=== PATIENT | female | born 1985 | race Caucasian/White ===

== ENCOUNTER 2022-04-05 11:16 | Emergency (ER) | payer OTHER ==
[2022-04-05 12:13] LABS: Appearance CLEAR (CLEAR); Bilirubin NEGATIVE (NEGATIVE); Dipstick done @ ? MAIN LAB; Epithelial Cells RARE /HPF (FEW); Glucose >=1000 mg/dL (NEGATIVE); Ketones NEGATIVE (NEGATIVE); Nitrite NEGATIVE (NEGATIVE); Protein,Urine Dip NEGATIVE (Negative); RBC NEGATIVE Ery/ul (0-5); Specific Gravity 1.015 (1.005-1.025); Urobilinogen 0.2 mg/dL (0-1)
[2022-04-05 12:14] LABS: Urine Cultured Indicated? NO
--- NOTE | 2022-04-05 13:34 | XRAY ---
Indication: Pain, constipation, and obstruction. Comparison: None KUB demonstrates moderate fecal debris throughout with little bowel gas/fecal debris in the rectum. Urinary bladder moderately distended. Remaining solid organs and osseous structures unremarkable. CT may yield further information if there remains further clinical concern.
--- NOTE | 2022-04-05 15:17 | ERPHSYRPT ---
- History of Present Illness Time Seen by Provider: 04/05/22 11:19 Historian: patient Exam Limitations: no limitations Patient Subjective Stated Complaint: pt states "I had C. diff 2 weeks ago and thought I would have diarrhea from the antibotics. I have not had a bowel mo vement in 14 days." Triage Nursing Assessment: pt ambulated into the er; pt is axo x4; c/o constipation; pt states 5/10 to abd; abd is round, soft, tender; hypoactive bowel sounds in all quads; pt states "heartburn when I eat."; hypertensive Physician History: 36-year-old female presented in the ER with chief complaint of constipation. Patient reports she had C. difficile 2 weeks ago and, was started on Flagyl, diarrhea has improved and does not have any bowel movement for almost 2 weeks. She feels bloated, does admit to passing gas and occasional cramping and getting nauseated with eating. Reports having similar symptoms in the past needing an TX. Timing/Duration: week(s) (2), gradual onset Quality: cramping, dullness Abdominal Pain Onset Location: generalized abdomen Pain Radiation: no radiation Severity of Pain-Max: moderate Severity of Pain-Current: moderate Modifying Factors: Worsens With: eating Previous symptoms: no prior history Allergies/Adverse Reactions: erythromycin base Allergy (Verified 04/05/22 12:44) Penicillins Allergy (Verified 04/05/22 11:27) Home Medications: Clopidogrel Bisulfate [PLAVIX Tablet] 75 mg PO DAILY 04/05/22 [History] Metformin HCl 500 mg [Glucophage 500 MG] 1,000 mg PO BIDWM 04/05/22 [History] Sertraline HCl [Zoloft] 100 mg PO 04/05/22 [History] Hx Tetanus, Diphtheria Vaccination/Date Given: Yes Hx Influenza Vaccination/Date Given: No Hx Pneumococcal Vaccination/Date Given: No Travel Risk - International Travel Have you traveled outside of the country in past 3 weeks: No - Coronavirus Screening Are you exhibiting any of the following symptoms?: No Close contact with a COVID-19 positive Pt in past 14-21 Days: No - Vaccine Status Have you recieved a Covid-19 vaccination: No - Review of Systems Constitutional: No Symptoms Eyes: No Symptoms Ears, Nose, & Throat: No Symptoms Respiratory: No Symptoms Cardiac: No Symptoms Abdominal/Gastrointestinal: Abdominal Pain, Constipation Genitourinary Symptoms: No Symptoms Musculoskeletal: No Symptoms Skin: No Symptoms Neurological: No Symptoms Psychological: No Symptoms Endocrine: No Symptoms Hematologic/Lymphatic: No Symptoms - Past Medical History Pertinent Past Medical History: Yes Cardiac History: Other Endocrine Medical History: Diabetes Type II GI Medical History: Irritable Bowel Psycho-Social History: Anxiety, Depression Other Medical History: PAD - Past Surgical History Past Surgical History: Yes Gastrointestinal: Cholecystectomy - Social History Smoking Status: Current every day smoker How long have you smoked: 22 years Exposure to second hand smoke: Yes Drug Use: marijuana Patient Lives Alone: No - Female History Hx Now: No - Nursing Vital Signs Nursing Vital Signs: Initial Vital Signs Pulse Rate 95 H 04/05/22 11:30 Respiratory Rate 18 04/05/22 11:30 Blood Pressure 174/112 04/05/22 11:30 O2 Sat by Pulse Oximetry 100 04/05/22 11:30 Pain Scale Pain Intensity 5 - Physical Exam General Appearance: no apparent distress, alert Eye Exam: PERRL/EOMI Neck Exam: normal inspection, full range of motion Respiratory Exam: normal breath sounds Cardiovascular Exam: regular rate/rhythm, normal heart sounds Gastrointestinal/Abdomen Exam: soft, normal bowel sounds, tenderness (Minimal generalized) Back Exam: normal inspection, normal range of motion Extremity Exam: normal inspection, normal range of motion Neurologic Exam: alert, oriented x 3, cooperative Skin Exam: normal color SpO2 Interpretation: normal SpO2: 98 O2 Delivery: Room Air Ordered Tests: Active Orders 24 hr Category Date Time Status KUB Stat Exams 04/05/22 13:21 Completed HCG, Quantitative (Inhouse) Stat Lab 04/05/22 12:19 Completed HCG,QUALITATIVE URINE Stat Lab 04/05/22 13:08 Completed UA W/RFX CULTURE Stat Lab 04/05/22 12:02 Completed Medication Summary Discontinued Medications Generic Name Dose Route Start Last Admin Trade Name Freq PRN Reason Stop Dose Admin Magnesium Citrate 296 ml 04/05/22 15:20 04/05/22 15:23 Magnesium Citrate 296 Ml Solution PO 04/05/22 15:21 296 ml STAT ONE Administration Magnesium Citrate Confirm 04/05/22 15:22 Magnesium Citrate 296 Ml Solution Administered 04/05/22 15:23 Dose 296 ml .ROUTE .[facility] Lab/Rad Data: Laboratory Results 04/05/22 04/05/22 04/05/22 Range/Units 13:08 12:19 12:02 Beta HCG, Quant < 2.39 mIU/ml Urinalys Dipstick Clnc MAIN LAB Urine Color YELLOW (YELLOW) Urine Appearance CLEAR (CLEAR) Urine pH 7.0 (5-6) Ur Specific Crosby 1.015 (1.005-1.025) POC Urine Protein Conf NEGATIVE (Negative) Urine Ketones NEGATIVE (NEGATIVE) Urine Nitrite NEGATIVE (NEGATIVE) Urine Bilirubin NEGATIVE (NEGATIVE) Urine Urobilinogen 0.2 (0-1) mg/dL Urine Leukocytes NEGATIVE (NEGATIVE) Urine WBC (Auto) NONE (0-5) /HPF Urine RBC (Auto) NONE (0-2) /HPF U Epithel Cells (Auto) RARE (FEW) /HPF Urine Bacteria (Auto) NONE (NEGATIVE) /HPF Urine RBC NEGATIVE (0-5) Adrien/ul Ur Culture Indicated? NO Urine Glucose >=1000 (NEGATIVE) mg/dL Urine HCG, Qual NEGATIVE (Negative) - Progress Progress: improved Progress Note: 04/05/22 15:16 Obtain KUB with no obstruction but does have fair stool load. Given enemas with small bowel movement. Does not have any peritoneal signs on repeated evaluations as well. Recommended mag citrate and MiraLAX, outpatient follow-up. Stable for discharge. Counseled pt/family regarding: diagnosis, need for follow-up, rad results - Departure Departure Disposition: Home Clinical Impression: Constipation Condition: Stable Critical Care Time: No Referrals: IDALMIS GRIFFIN [Primary Care Provider] - Follow up/PCP as directed (1-2 days for reevaluation) Instructions: Constipation, Adult (DC) Additional Instructions: Drink plenty of fluids. Take MiraLAX regularly. Take magnesium citrate today. Follow-up with primary care for reevaluation. Return to ER for worsening constipation, abdominal pain, nausea vomiting etc. Prescriptions: Magnesium Citrate [Citroma] 296 ml PO DAILY PRN PRN 1 Days #296 ml PRN Reason: Constipation Polyethylene Glycol 3350 17 gm [Miralax Powder 17GM PACKET] 17 gm PO DAILY #30 packet
[2022-04-05] MEDS ORDERED: CITROMA 296 ML PO ONE (15:20)
[2022-04-05] MEDS ORDERED: CITROMA 296 ML ONE (15:22)
[2022-04-05 15:33] VITALS: BP 128/90; PULSE 82
[2022-04-05 20:56] VITALS: O2SAT 98
== END 2022-04-05 15:33 | disposition home or self-care (01) ==
LOC: ED 11:16
DX: K59.00 Constipation, unspecified (principal); E11.9 Type 2 diabetes mellitus without complications; Z72.0 Tobacco use; Z79.02 Long term (current) use of antithrombotics/antiplatelets; Z79.84 Long term (current) use of oral hypoglycemic drugs; Z79.899 Other long term (current) drug therapy; Z28.310 Unvaccinated for COVID-19
CPT/HCPCS: 36000; 36415; 74018; 81015; 81025; 84702; 99283; A9270-GY

== ENCOUNTER 2022-04-24 23:31 | Observation (INO) | payer OTHER ==
[2022-04-25] MEDS ORDERED: Sodium Chloride 0.9% 1000 ML 1,000 ML IV STA ×3 (01:04→05:21)
[2022-04-25] MEDS ORDERED: Zofran 4 MG/2 ML VIAL IV ONE ×2 (01:05→05:55)
[2022-04-25] MEDS ORDERED: Sodium Chloride 0.9% 1000 ML 1,000 ML ONE ×3 (01:15→05:27)
[2022-04-25] MEDS ORDERED: Zofran 4 MG/2 ML VIAL ONE ×2 (01:15→05:56)
--- NOTE | 2022-04-25 01:19 | ERPHSYRPT ---
- History of Present Illness Historian: patient Exam Limitations: other (Poor historian) Patient Subjective Stated Complaint: pt states she started vomiting tonight and has been having abd pain. started tonight approx 2.5 hours ago. Triage Nursing Assessment: pt alert and oriented, answers questions approp. pt ambulatory with slow steady gait noted. respirations nonlabored with occasional hacking cough. abd soft and nontender. pt vomiting undigested food. bowel sounds hypo x4. skin warm and dry. Physician History: 36 yo wf who is a very poor historian presents w abdominal pain/N/V/chest pain/dyspnea since 20:00. Pain is epigastric and does not radiate. Nothing seems to make it better or worse. She denies hematemesis/melena/hematochezia/ dysuria/hematuria/fever/cough/coryza. Pt has a h/o DM/HTM and has had a juan c and C-sec. Timing/Duration: other (20:00) Quality: other (Pain, unable to describe) Abdominal Pain Onset Location: epigastric Pain Radiation: no radiation Severity of Pain-Max: severe Severity of Pain-Current: moderate Modifying Factors: Improves With: nothing Associated Symptoms: nausea, vomiting Previous symptoms: no prior history Allergies/Adverse Reactions: erythromycin base Allergy (Verified 04/05/22 12:44) Penicillins Allergy (Verified 04/05/22 11:27) Home Medications: Clopidogrel Bisulfate [PLAVIX Tablet] 75 mg PO DAILY 04/05/22 [History] Metformin HCl 500 mg [Glucophage 500 MG] 1,000 mg PO BIDWM 04/05/22 [History] Sertraline HCl [Zoloft] 100 mg PO DAILY 04/05/22 [History] Hx Tetanus, Diphtheria Vaccination/Date Given: Yes Hx Influenza Vaccination/Date Given: No Hx Pneumococcal Vaccination/Date Given: No Immunizations Up to Date: Yes Travel Risk - International Travel Have you traveled outside of the country in past 3 weeks: No - Coronavirus Screening Are you exhibiting any of the following symptoms?: No Symptoms: Vomiting/Diarrhea Close contact with a COVID-19 positive Pt in past 14-21 Days: No - Vaccine Status Have you recieved a Covid-19 vaccination: No - Review of Systems Constitutional: No Symptoms Eyes: No Symptoms Ears, Nose, & Throat: No Symptoms Respiratory: No Symptoms Cardiac: No Symptoms, Chest Pain Abdominal/Gastrointestinal: No Symptoms, Abdominal Pain, Nausea, Vomiting Genitourinary Symptoms: No Symptoms Musculoskeletal: No Symptoms Skin: No Symptoms Neurological: No Symptoms Psychological: No Symptoms Endocrine: No Symptoms Hematologic/Lymphatic: No Symptoms Immunological/Allergic: No Symptoms - Past Medical History Pertinent Past Medical History: Yes Cardiac History: Other Endocrine Medical History: Diabetes Type II GI Medical History: Irritable Bowel Psycho-Social History: Anxiety, Depression Other Medical History: PAD - Past Surgical History Past Surgical History: Yes Gastrointestinal: Cholecystectomy - Social History Smoking Status: Current every day smoker How long have you smoked: 22 years Exposure to second hand smoke: Yes Drug Use: marijuana Patient Lives Alone: No - Female History Hx Last Menstrual Period: apr 08 Hx Now: No - Nursing Vital Signs Nursing Vital Signs: Initial Vital Signs Temperature 97.1 F 04/25/22 00:29 Pulse Rate 84 04/25/22 00:29 Respiratory Rate 16 04/25/22 00:29 Blood Pressure 184/113 04/25/22 00:29 O2 Sat by Pulse Oximetry 100 04/25/22 00:29 Pain Scale Pain Intensity 5 Hypertensive - Physical Exam General Appearance: no apparent distress Eye Exam: PERRL/EOMI, eyes nml inspection Ears, Nose, Throat Exam: normal ENT inspection, TMs normal, pharynx normal, moist mucous membranes Neck Exam: normal inspection, non-tender, supple, full range of motion, No meningismus, No mass, No Brudzinski, No Kernig's Respiratory Exam: normal breath sounds, lungs clear, airway intact, No respiratory distress Cardiovascular Exam: regular rate/rhythm, normal heart sounds, normal peripheral pulses, capillary refill <2 sec, No murmur Gastrointestinal/Abdomen Exam: soft, normal bowel sounds, tenderness (Mild R abdomen TTP wo guardin gor rebound) Back Exam: normal inspection, normal range of motion, No CVA tenderness, No vertebral tenderness Extremity Exam: normal inspection, normal range of motion Neurologic Exam: alert, oriented x 3, cooperative, talent development consultant II-XII nml as tested, normal mood/affect, nml cerebellar function, nml station & gait, sensation nml Skin Exam: normal color, warm, dry, No rash Lymphatic Exam: No adenopathy SpO2 Interpretation: normal SpO2: 100 O2 Delivery: Room Air - Course Nursing assessment & vital signs reviewed: Yes EKG Interpreted by Me: RATE (NSR/Rate85/Prolonged QTc/No acute ST segment changes) - CT Exams Abdomen/Pelvis CT Interpretation: Tele-radiologist Report (CT [id number]/Mild constipation) Other CT Interpretation: Tele-radiologist Report (CTA of abdomen-Occlusion of R common and superficial femoral artery w collateral flow reconstituting deep R femoral artery) Ordered Tests: Active Orders 24 hr Category Date Time Status EKG-ER Only STAT Care 04/25/22 01:12 Active ABDOMEN AND PELVIS W/0 CONTRAS [CT] Stat Exams 04/25/22 02:17 Taken CTA ABD/PEL W AND/OR W/O CONTR [CT] Stat Exams 04/25/22 04:41 Taken AMYLASE Stat Lab 04/25/22 01:30 Completed BMP Stat Lab 04/25/22 04:52 Completed CBC W DIFF Stat Lab 04/25/22 01:30 Completed CMP Stat Lab 04/25/22 01:30 Completed HCG QUALITATIVE,SERUM Stat Lab 04/25/22 01:30 Completed LIPASE Stat Lab 04/25/22 01:30 Completed Lactic Acid Routine Lab 04/25/22 06:00 Completed Lactic Acid Stat Lab 04/25/22 01:47 Completed Lactic Acid Stat Lab 04/25/22 03:53 Completed POCT GLUCOSE Stat Lab 04/25/22 02:34 Completed TROPONIN Q4H Lab 04/25/22 01:30 Completed TROPONIN Q4H Lab 04/25/22 04:52 Completed TROPONIN Q4H Lab 04/25/22 09:15 Ordered UA W/RFX CULTURE Stat Lab 04/25/22 04:01 Completed Urine Triage Profile Stat Lab 04/25/22 04:01 Completed Medication Summary Discontinued Medications Generic Name Dose Route Start Last Admin Trade Name Freq PRN Reason Stop Dose Admin Sodium Chloride 1,000 mls @ 999 mls/hr 04/25/22 01:04 04/25/22 01:18 Sodium Chloride 0.9% 1000 Ml IV 04/25/22 02:04 999 mls/hr .Q1H1M STA Administration Sodium Chloride Confirm 04/25/22 01:15 Sodium Chloride 0.9% 1000 Ml Administered 04/25/22 01:16 Dose 1,000 mls @ ud .ROUTE .STK-MED ONE Sodium Chloride 1,000 mls @ 999 mls/hr 04/25/22 02:16 04/25/22 02:56 Sodium Chloride 0.9% 1000 Ml IV 04/25/22 03:16 999 mls/hr .Q1H1M STA Administration Sodium Chloride Confirm 04/25/22 02:55 Sodium Chloride 0.9% 1000 Ml Administered 04/25/22 02:56 Dose 1,000 mls @ ud .ROUTE .STK-MED ONE Sodium Chloride 1,000 mls @ 999 mls/hr 04/25/22 05:21 04/25/22 05:33 Sodium Chloride 0.9% 1000 Ml IV 04/25/22 06:21 999 mls/hr .Q1H1M STA Administration Sodium Chloride Confirm 04/25/22 05:27 Sodium Chloride 0.9% 1000 Ml Administered 04/25/22 05:28 Dose 1,000 mls @ ud .ROUTE .STK-MED ONE Insulin Human Lispro 10 unit 04/25/22 02:15 04/25/22 02:30 Insulin Lispro 1 Unit SQ 04/25/22 02:16 10 unit STAT ONE Administration Insulin Human Lispro Confirm 04/25/22 02:30 Insulin Lispro 1 Unit Administered 04/25/22 02:31 Dose 10 unit .ROUTE .STK-MED ONE Insulin Human Regular Confirm 04/25/22 02:26 Insulin Regular, Human 1 Unit Administered 04/25/22 02:27 Dose 10 unit .ROUTE .STK-MED ONE Insulin Human Regular 5 unit 04/25/22 05:18 04/25/22 05:34 Insulin Regular, Human 1 Unit IV 04/25/22 05:19 5 unit STAT ONE Administration Insulin Human Regular 10 unit 04/25/22 05:19 04/25/22 05:34 Insulin Regular, Human 1 Unit SQ 04/25/22 05:20 10 unit STAT ONE Administration Insulin Human Regular Confirm 04/25/22 05:27 Insulin Regular, Human 1 Unit Administered 04/25/22 05:28 Dose 15 unit .ROUTE .STK-MED ONE Ketorolac Tromethamine 15 mg 04/25/22 04:36 04/25/22 04:57 Ketorolac Tromethamine 30 Mg/Ml Inj IV 04/25/22 04:37 15 mg STAT ONE Administration Ketorolac Tromethamine Confirm 04/25/22 04:57 Ketorolac Tromethamine 30 Mg/Ml Inj Administered 04/25/22 04:58 Dose 30 mg .ROUTE .STK-MED ONE Ondansetron HCl 4 mg 04/25/22 01:05 04/25/22 01:18 Ondansetron Hcl 4 Mg/2 Ml Vial IV 04/25/22 01:06 4 mg STAT ONE Administration Ondansetron HCl Confirm 04/25/22 01:15 Ondansetron Hcl 4 Mg/2 Ml Vial Administered 04/25/22 01:16 Dose 4 mg .ROUTE .STK-MED ONE Ondansetron HCl 4 mg 04/25/22 05:55 04/25/22 06:02 Ondansetron Hcl 4 Mg/2 Ml Vial IV 04/25/22 05:56 4 mg STAT ONE Administration Ondansetron HCl Confirm 04/25/22 05:56 Ondansetron Hcl 4 Mg/2 Ml Vial Administered 04/25/22 05:57 Dose 4 mg .ROUTE .STK-MED ONE Lab/Rad Data: Laboratory Result Diagrams 04/25/22 01:30 04/25/22 04:52 Laboratory Results 04/25/22 04/25/22 04/25/22 Range/Units 06:00 04:52 04:52 WBC (4.0-10.5) x10^3/uL RBC (4.1-5.4) x10^6/uL Hgb (12.0-16.0) g/dL Hct (35-47) % MCV (78-100) fL MCH (26-32) pg MCHC (32-36) g/dL RDW (11.5-14.0) % Plt Count (150-450) x10^3/uL MPV (7.5-11.0) fL Gran % (36.0-66.0) % Immature Gran % (Auto) (0.00-0.4) % Nucleat RBC Rel Count (0.00-0.1) % Eos # (Auto) (0-0.5) x10^3/uL Immature Gran # (Auto) (0.00-0.03) x10^3u/L Absolute Lymphs (auto) (1.0-4.6) x10^3/uL Absolute Monos (auto) (0.0-1.3) x10^3/uL Absolute Nucleated RBC (0.00-0.01) x10^3u/L Lymphocytes % (24.0-44.0) % Monocytes % (0.0-12.0) % Eosinophils % (0.00-5.0) % Basophils % (0.0-0.4) % Absolute Granulocytes (1.4-6.9) x10^3/uL Basophils # (0-0.4) x10^3/uL Sodium 132 L (137-145) mmol/L Potassium 3.8 (3.5-5.1) mmol/L Chloride 98 (98-107) mmol/L Carbon Dioxide 25 (22-30) mmol/L Anion Gap 12.7 (5-15) MEQ/L BUN 8 (7-17) mg/dL Creatinine 0.37 L (0.52-1.04) mg/dL Estimated GFR > 60.0 ML/MIN Glucose 385 H (74-106) mg/dL POC Glucometer (74 to 106) mg/dL Lactic Acid 3.7 H (0.4-2.0) Calcium 8.5 (8.4-10.2) mg/dL Total Bilirubin (0.2-1.3) mg/dL AST (14-36) U/L ALT (0-35) U/L Alkaline Phosphatase (38-126) U/L Troponin I < 0.012 (0.000-0.034) ng/mL Serum Total Protein (6.3-8.2) g/dL Albumin (3.5-5.0) g/dL Amylase (30-110) U/L Lipase (23-300) U/L Serum , Qual (Negative) Urinalys Dipstick Clnc Urine Color (YELLOW) Urine Appearance (CLEAR) Urine pH (5-6) Ur Specific [place] (1.005-1.025) POC Urine Protein Conf (Negative) Urine Ketones (NEGATIVE) Urine Nitrite (NEGATIVE) Urine Bilirubin (NEGATIVE) Urine Urobilinogen (0-1) mg/dL Urine Leukocytes (NEGATIVE) Urine WBC (Auto) (0-5) /HPF Urine RBC (Auto) (0-2) /HPF U Epithel Cells (Auto) (FEW) /HPF Urine Bacteria (Auto) (NEGATIVE) /HPF Urine RBC (0-5) Adrien/ul Ur Culture Indicated? Urine Glucose (NEGATIVE) mg/dL Urine Opiates Level (NEGATIVE) Ur Methadone (NEGATIVE) Urine Barbiturates (NEGATIVE) Ur Phencyclidine (PCP) (NEGATIVE) Urine Amphetamine (NEGATIVE) U Benzodiazepine Level (NEGATIVE) Urine Cocaine (NEGATIVE) Urine Marijuana (THC) (NEGATIVE) Influenza Type A Ag (NEGATIVE) Influenza Type B Ag (NEGATIVE) RSV (PCR) (Negative) SARS-CoV-2 (PCR) (NEGATIVE) 04/25/22 04/25/22 04/25/22 Range/Units 04:01 04:01 03:53 WBC (4.0-10.5) x10^3/uL RBC (4.1-5.4) x10^6/uL Hgb (12.0-16.0) g/dL Hct (35-47) % MCV (78-100) fL MCH (26-32) pg MCHC (32-36) g/dL RDW (11.5-14.0) % Plt Count (150-450) x10^3/uL MPV (7.5-11.0) fL Gran % (36.0-66.0) % Immature Gran % (Auto) (0.00-0.4) % Nucleat RBC Rel Count (0.00-0.1) % Eos # (Auto) (0-0.5) x10^3/uL Immature Gran # (Auto) (0.00-0.03) x10^3u/L Absolute Lymphs (auto) (1.0-4.6) x10^3/uL Absolute Monos (auto) (0.0-1.3) x10^3/uL Absolute Nucleated RBC (0.00-0.01) x10^3u/L Lymphocytes % (24.0-44.0) % Monocytes % (0.0-12.0) % Eosinophils % (0.00-5.0) % Basophils % (0.0-0.4) % Absolute Granulocytes (1.4-6.9) x10^3/uL Basophils # (0-0.4) x10^3/uL Sodium (137-145) mmol/L Potassium (3.5-5.1) mmol/L Chloride (98-107) mmol/L Carbon Dioxide (22-30) mmol/L Anion Gap (5-15) MEQ/L BUN (7-17) mg/dL Creatinine (0.52-1.04) mg/dL Estimated GFR ML/MIN Glucose (74-106) mg/dL POC Glucometer (74 to 106) mg/dL Lactic Acid 3.7 H (0.4-2.0) Calcium (8.4-10.2) mg/dL Total Bilirubin (0.2-1.3) mg/dL AST (14-36) U/L ALT (0-35) U/L Alkaline Phosphatase (38-126) U/L Troponin I (0.000-0.034) ng/mL Serum Total Protein (6.3-8.2) g/dL Albumin (3.5-5.0) g/dL Amylase (30-110) U/L Lipase (23-300) U/L Serum , Qual (Negative) Urinalys Dipstick Clnc MAIN LAB Urine Color YELLOW (YELLOW) Urine Appearance CLEAR (CLEAR) Urine pH 7.5 (5-6) Ur Specific [place] 1.020 (1.005-1.025) POC Urine Protein Conf 100 (Negative) Urine Ketones SMALL-15 (NEGATIVE) Urine Nitrite NEGATIVE (NEGATIVE) Urine Bilirubin NEGATIVE (NEGATIVE) Urine Urobilinogen 0.2 (0-1) mg/dL Urine Leukocytes NEGATIVE (NEGATIVE) Urine WBC (Auto) NONE (0-5) /HPF Urine RBC (Auto) NONE (0-2) /HPF U Epithel Cells (Auto) NONE (FEW) /HPF Urine Bacteria (Auto) NONE (NEGATIVE) /HPF Urine RBC 5-10 (0-5) Adrien/ul Ur Culture Indicated? NO Urine Glucose 500 (NEGATIVE) mg/dL Urine Opiates Level NEGATIVE (NEGATIVE) Ur Methadone NEGATIVE (NEGATIVE) Urine Barbiturates NEGATIVE (NEGATIVE) Ur Phencyclidine (PCP) NEGATIVE (NEGATIVE) Urine Amphetamine NEGATIVE (NEGATIVE) U Benzodiazepine Level NEGATIVE (NEGATIVE) Urine Cocaine NEGATIVE (NEGATIVE) Urine Marijuana (THC) POSITIVE (NEGATIVE) Influenza Type A Ag (NEGATIVE) Influenza Type B Ag (NEGATIVE) RSV (PCR) (Negative) SARS-CoV-2 (PCR) (NEGATIVE) 04/25/22 04/25/22 04/25/22 Range/Units 02:34 02:21 01:47 WBC (4.0-10.5) x10^3/uL RBC (4.1-5.4) x10^6/uL Hgb (12.0-16.0) g/dL Hct (35-47) % MCV (78-100) fL MCH (26-32) pg MCHC (32-36) g/dL RDW (11.5-14.0) % Plt Count (150-450) x10^3/uL MPV (7.5-11.0) fL Gran % (36.0-66.0) % Immature Gran % (Auto) (0.00-0.4) % Nucleat RBC Rel Count (0.00-0.1) % Eos # (Auto) (0-0.5) x10^3/uL Immature Gran # (Auto) (0.00-0.03) x10^3u/L Absolute Lymphs (auto) (1.0-4.6) x10^3/uL Absolute Monos (auto) (0.0-1.3) x10^3/uL Absolute Nucleated RBC (0.00-0.01) x10^3u/L Lymphocytes % (24.0-44.0) % Monocytes % (0.0-12.0) % Eosinophils % (0.00-5.0) % Basophils % (0.0-0.4) % Absolute Granulocytes (1.4-6.9) x10^3/uL Basophils # (0-0.4) x10^3/uL Sodium (137-145) mmol/L Potassium (3.5-5.1) mmol/L Chloride (98-107) mmol/L Carbon Dioxide (22-30) mmol/L Anion Gap (5-15) MEQ/L BUN (7-17) mg/dL Creatinine (0.52-1.04) mg/dL Estimated GFR ML/MIN Glucose (74-106) mg/dL POC Glucometer 392 H (74 to 106) mg/dL Lactic Acid 4.4 H (0.4-2.0) Calcium (8.4-10.2) mg/dL Total Bilirubin (0.2-1.3) mg/dL AST (14-36) U/L ALT (0-35) U/L Alkaline Phosphatase (38-126) U/L Troponin I (0.000-0.034) ng/mL Serum Total Protein (6.3-8.2) g/dL Albumin (3.5-5.0) g/dL Amylase (30-110) U/L Lipase (23-300) U/L Serum , Qual (Negative) Urinalys Dipstick Clnc Urine Color (YELLOW) Urine Appearance (CLEAR) Urine pH (5-6) Ur Specific [place] (1.005-1.025) POC Urine Protein Conf (Negative) Urine Ketones (NEGATIVE) Urine Nitrite (NEGATIVE) Urine Bilirubin (NEGATIVE) Urine Urobilinogen (0-1) mg/dL Urine Leukocytes (NEGATIVE) Urine WBC (Auto) (0-5) /HPF Urine RBC (Auto) (0-2) /HPF U Epithel Cells (Auto) (FEW) /HPF Urine Bacteria (Auto) (NEGATIVE) /HPF Urine RBC (0-5) Adrien/ul Ur Culture Indicated? Urine Glucose (NEGATIVE) mg/dL Urine Opiates Level (NEGATIVE) Ur Methadone (NEGATIVE) Urine Barbiturates (NEGATIVE) Ur Phencyclidine (PCP) (NEGATIVE) Urine Amphetamine (NEGATIVE) U Benzodiazepine Level (NEGATIVE) Urine Cocaine (NEGATIVE) Urine Marijuana (THC) (NEGATIVE) Influenza Type A Ag NEGATIVE (NEGATIVE) Influenza Type B Ag NEGATIVE (NEGATIVE) RSV (PCR) NEGATIVE (Negative) SARS-CoV-2 (PCR) NEGATIVE (NEGATIVE) 04/25/22 04/25/22 04/25/22 Range/Units 01:30 01:30 01:30 WBC (4.0-10.5) x10^3/uL RBC (4.1-5.4) x10^6/uL Hgb (12.0-16.0) g/dL Hct (35-47) % MCV (78-100) fL MCH (26-32) pg MCHC (32-36) g/dL RDW (11.5-14.0) % Plt Count (150-450) x10^3/uL MPV (7.5-11.0) fL Gran % (36.0-66.0) % Immature Gran % (Auto) (0.00-0.4) % Nucleat RBC Rel Count (0.00-0.1) % Eos # (Auto) (0-0.5) x10^3/uL Immature Gran # (Auto) (0.00-0.03) x10^3u/L Absolute Lymphs (auto) (1.0-4.6) x10^3/uL Absolute Monos (auto) (0.0-1.3) x10^3/uL Absolute Nucleated RBC (0.00-0.01) x10^3u/L Lymphocytes % (24.0-44.0) % Monocytes % (0.0-12.0) % Eosinophils % (0.00-5.0) % Basophils % (0.0-0.4) % Absolute Granulocytes (1.4-6.9) x10^3/uL Basophils # (0-0.4) x10^3/uL Sodium 131 L (137-145) mmol/L Potassium 3.7 (3.5-5.1) mmol/L Chloride 95 L (98-107) mmol/L Carbon Dioxide 24 (22-30) mmol/L Anion Gap 16.0 H (5-15) MEQ/L BUN 10 (7-17) mg/dL Creatinine 0.43 L (0.52-1.04) mg/dL Estimated GFR > 60.0 ML/MIN Glucose 439 H (74-106) mg/dL POC Glucometer (74 to 106) mg/dL Lactic Acid (0.4-2.0) Calcium 9.7 (8.4-10.2) mg/dL Total Bilirubin 0.40 (0.2-1.3) mg/dL AST 28 (14-36) U/L ALT 26 (0-35) U/L Alkaline Phosphatase 118 (38-126) U/L Troponin I < 0.012 (0.000-0.034) ng/mL Serum Total Protein 7.9 (6.3-8.2) g/dL Albumin 4.7 (3.5-5.0) g/dL Amylase 54 (30-110) U/L Lipase 120 (23-300) U/L Serum , Qual NEGATIVE (Negative) Urinalys Dipstick Clnc Urine Color (YELLOW) Urine Appearance (CLEAR) Urine pH (5-6) Ur Specific [place] (1.005-1.025) POC Urine Protein Conf (Negative) Urine Ketones (NEGATIVE) Urine Nitrite (NEGATIVE) Urine Bilirubin (NEGATIVE) Urine Urobilinogen (0-1) mg/dL Urine Leukocytes (NEGATIVE) Urine WBC (Auto) (0-5) /HPF Urine RBC (Auto) (0-2) /HPF U Epithel Cells (Auto) (FEW) /HPF Urine Bacteria (Auto) (NEGATIVE) /HPF Urine RBC (0-5) Adrien/ul Ur Culture Indicated? Urine Glucose (NEGATIVE) mg/dL Urine Opiates Level (NEGATIVE) Ur Methadone (NEGATIVE) Urine Barbiturates (NEGATIVE) Ur Phencyclidine (PCP) (NEGATIVE) Urine Amphetamine (NEGATIVE) U Benzodiazepine Level (NEGATIVE) Urine Cocaine (NEGATIVE) Urine Marijuana (THC) (NEGATIVE) Influenza Type A Ag (NEGATIVE) Influenza Type B Ag (NEGATIVE) RSV (PCR) (Negative) SARS-CoV-2 (PCR) (NEGATIVE) 04/25/22 Range/Units 01:30 WBC 18.0 H (4.0-10.5) x10^3/uL RBC 4.46 (4.1-5.4) x10^6/uL Hgb 13.2 (12.0-16.0) g/dL Hct 38.7 (35-47) % MCV 86.8 (78-100) fL MCH 29.6 (26-32) pg MCHC 34.1 (32-36) g/dL RDW 12.8 (11.5-14.0) % Plt Count 333 (150-450) x10^3/uL MPV 10.9 (7.5-11.0) fL Gran % 83.3 H (36.0-66.0) % Immature Gran % (Auto) 0.7 H (0.00-0.4) % Nucleat RBC Rel Count 0.0 (0.00-0.1) % Eos # (Auto) 0.07 (0-0.5) x10^3/uL Immature Gran # (Auto) 0.12 H (0.00-0.03) x10^3u/L Absolute Lymphs (auto) 1.52 (1.0-4.6) x10^3/uL Absolute Monos (auto) 1.19 (0.0-1.3) x10^3/uL Absolute Nucleated RBC 0.00 (0.00-0.01) x10^3u/L Lymphocytes % 8.5 L (24.0-44.0) % Monocytes % 6.6 (0.0-12.0) % Eosinophils % 0.4 (0.00-5.0) % Basophils % 0.5 (0.0-0.4) % Absolute Granulocytes 14.99 H (1.4-6.9) x10^3/uL Basophils # 0.09 (0-0.4) x10^3/uL Sodium (137-145) mmol/L Potassium (3.5-5.1) mmol/L Chloride (98-107) mmol/L Carbon Dioxide (22-30) mmol/L Anion Gap (5-15) MEQ/L BUN (7-17) mg/dL Creatinine (0.52-1.04) mg/dL Estimated GFR ML/MIN Glucose (74-106) mg/dL POC Glucometer (74 to 106) mg/dL Lactic Acid (0.4-2.0) Calcium (8.4-10.2) mg/dL Total Bilirubin (0.2-1.3) mg/dL AST (14-36) U/L ALT (0-35) U/L Alkaline Phosphatase (38-126) U/L Troponin I (0.000-0.034) ng/mL Serum Total Protein (6.3-8.2) g/dL Albumin (3.5-5.0) g/dL Amylase (30-110) U/L Lipase (23-300) U/L Serum , Qual (Negative) Urinalys Dipstick Clnc Urine Color (YELLOW) Urine Appearance (CLEAR) Urine pH (5-6) Ur Specific [place] (1.005-1.025) POC Urine Protein Conf (Negative) Urine Ketones (NEGATIVE) Urine Nitrite (NEGATIVE) Urine Bilirubin (NEGATIVE) Urine Urobilinogen (0-1) mg/dL Urine Leukocytes (NEGATIVE) Urine WBC (Auto) (0-5) /HPF Urine RBC (Auto) (0-2) /HPF U Epithel Cells (Auto) (FEW) /HPF Urine Bacteria (Auto) (NEGATIVE) /HPF Urine RBC (0-5) Adrien/ul Ur Culture Indicated? Urine Glucose (NEGATIVE) mg/dL Urine Opiates Level (NEGATIVE) Ur Methadone (NEGATIVE) Urine Barbiturates (NEGATIVE) Ur Phencyclidine (PCP) (NEGATIVE) Urine Amphetamine (NEGATIVE) U Benzodiazepine Level (NEGATIVE) Urine Cocaine (NEGATIVE) Urine Marijuana (THC) (NEGATIVE) Influenza Type A Ag (NEGATIVE) Influenza Type B Ag (NEGATIVE) RSV (PCR) (Negative) SARS-CoV-2 (PCR) (NEGATIVE) - Progress Progress Note: 04/25/22 04:06 Inspect Ultracet 09/03/20, Percocet5 07/13/20 1L NS bolus x2/10units sq Humalog 04/25/22 06:35 1L NS bolus/10units sq InsulinR/5units IV InsulinR w glucose decreasing to 270 04/25/22 06:51 Lactic acid still elevated after fluids, so possible lactic acidosis due to glucophage. Obs per Dr. Rendon Discussed with .: Carlitos Counseled pt/family regarding: lab results, diagnosis, rad results - Departure Departure Disposition: Home Clinical Impression: Nausea & vomiting, Hyperglycemia, Abdominal pain, Lactic acid acidosis Condition: Stable Critical Care Time: No Referrals: IDALMIS BRIGGS [Primary Care Provider] - Follow up/PCP as directed Instructions: Severe Abdominal Pain, Adult (DC), High Blood Sugar, Adult (DC) Additional Instructions: Stop Glucophage Follow up with Dr. Briggs Return to ER for increasing pain or temperature greater than 100.5
[2022-04-25 01:39] LABS: Absolute Neutrophil Ct (ANC) 14.99 x10^3/uL (1.4-6.9); Basophil (Absolute #) 0.09 x10^3/uL (0-0.4); Eosinophil % 0.4 % (0.00-5.0); Eosinophil (Absolute #) 0.07 x10^3/uL (0-0.5); Hematocrit 38.7 % (35-47); Hemoglobin 13.2 g/dL (12.0-16.0); Lymphocyte (Absolute #) 1.52 x10^3/uL (1.0-4.6); Lymphocytes % 8.5 % (24.0-44.0); Mean Cell Volume 86.8 fL (78-100); Mean Corpuscular Hemoglobin 29.6 pg (26-32); Mean Corpuscular Hgb Concent. 34.1 g/dL (32-36); Mean Platelet Volume 10.9 fL (7.5-11.0); Monocyte (Absolute #) 1.19 x10^3/uL (0.0-1.3); Monocytes % 6.6 % (0.0-12.0); Neutrophil % 83.3 % (36.0-66.0); Platelet Count 333 x10^3/uL (150-450); Red Blood Count 4.46 x10^6/uL (4.1-5.4); Red Cell Distribution Width 12.8 % (11.5-14.0)
[2022-04-25 01:48] LABS: ALBUMIN 4.7 g/dL (3.5-5.0); ALKALINE PHOSPHATASE 118 U/L (38-126); AMYLASE 54 U/L (30-110); BLOOD UREA NITROGEN 10 mg/dL (7-17); CHLORIDE 95 mmol/L (98-107); Calcium 9.7 mg/dL (8.4-10.2); Carbon Dioxide 24 mmol/L (22-30); Creatinine 1 0.43 mg/dL (0.52-1.04); EST GLOMERULAR FILTRATION RATE > 60.0 ML/MIN; Glucose 439 mg/dL (74-106); LIPASE 120 U/L (23-300); Potassium 3.7 mmol/L (3.5-5.1); SGOT/AST 28 U/L (14-36); SGPT/ALT 26 U/L (0-35); SODIUM 131 mmol/L (137-145); Total Protein 7.9 g/dL (6.3-8.2)
[2022-04-25] MEDS ORDERED: HUMALOG SQ ONE (02:15)
[2022-04-25] MEDS ORDERED: HUMULIN R ONE ×2 (02:26→05:27)
[2022-04-25] MEDS ORDERED: HUMALOG ONE (02:30)
[2022-04-25 03:06] LABS: INFLUENZA A NEGATIVE (NEGATIVE); INFLUENZA B NEGATIVE (NEGATIVE); RESPIRATORY SYNCTIAL VIRUS NEGATIVE (Negative); SARS-CoV-2 Xpert Express NEGATIVE (NEGATIVE)
[2022-04-25 04:26] LABS: Appearance CLEAR (CLEAR); Bilirubin NEGATIVE (NEGATIVE); Glucose 500 mg/dL (NEGATIVE); Ketones SMALL-15 (NEGATIVE); Nitrite NEGATIVE (NEGATIVE); Ph 7.5 (5-6); Protein,Urine Dip 100 (Negative); Urobilinogen 0.2 mg/dL (0-1)
[2022-04-25 04:27] LABS: Dipstick done @ ? MAIN LAB
[2022-04-25 04:28] LABS: Urine Cultured Indicated? NO
[2022-04-25] MEDS ORDERED: TORAdol 30 mg Injection IV ONE (04:36)
[2022-04-25 04:48] LABS: Amphetamine,Urine NEGATIVE (NEGATIVE); Barbiturate,Urine NEGATIVE (NEGATIVE); Benzodiazepine,Urine NEGATIVE (NEGATIVE); Cocaine,Urine NEGATIVE (NEGATIVE); Methadone,Urine NEGATIVE (NEGATIVE); Opiate,Urine NEGATIVE (NEGATIVE); THC,Urine POSITIVE (NEGATIVE)
[2022-04-25 04:57] LABS: PCP,Urine NEGATIVE (NEGATIVE)
[2022-04-25] MEDS ORDERED: TORAdol 30 mg Injection ONE (04:57)
[2022-04-25 05:01] LABS: ANION GAP 12.7 MEQ/L (5-15); BLOOD UREA NITROGEN 8 mg/dL (7-17); CHLORIDE 98 mmol/L (98-107); Calcium 8.5 mg/dL (8.4-10.2); Carbon Dioxide 25 mmol/L (22-30); Creatinine 1 0.37 mg/dL (0.52-1.04); EST GLOMERULAR FILTRATION RATE > 60.0 ML/MIN; Glucose 385 mg/dL (74-106); Potassium 3.8 mmol/L (3.5-5.1); SODIUM 132 mmol/L (137-145)
[2022-04-25] MEDS ORDERED: HUMULIN R IV ONE (05:18)
[2022-04-25] MEDS ORDERED: HUMULIN R SQ ONE (05:19)
[2022-04-25] MEDS ORDERED: Zofran 4 MG/2 ML VIAL IV PRN ×2 (06:47→08:16)
[2022-04-25] MEDS ORDERED: Sodium Chloride 0.9% 1000 ML 1,000 ML IV SCH (07:00)
[2022-04-25] MEDS ORDERED: Phenergan 25 MG INJ*** 25 MG in Sodium Chloride 0.9% 100 ML IV PRN (08:08)
[2022-04-25 09:00] LABS: Basophil (Absolute #) 0.05 x10^3/uL (0-0.4); Eosinophil (Absolute #) 0 x10^3/uL (0-0.5); Hematocrit 37.1 % (35-47); Hemoglobin 12.7 g/dL (12.0-16.0); Lymphocyte (Absolute #) 0.71 x10^3/uL (1.0-4.6); Lymphocytes % 3.8 % (24.0-44.0); Mean Cell Volume 85.9 fL (78-100); Mean Corpuscular Hemoglobin 29.4 pg (26-32); Mean Corpuscular Hgb Concent. 34.2 g/dL (32-36); Mean Platelet Volume 10.7 fL (7.5-11.0); Monocyte (Absolute #) 0.66 x10^3/uL (0.0-1.3); Monocytes % 3.5 % (0.0-12.0); Neutrophil % 91.9 % (36.0-66.0); Platelet Count 309 x10^3/uL (150-450); Red Blood Count 4.32 x10^6/uL (4.1-5.4); Red Cell Distribution Width 12.7 % (11.5-14.0); White Blood Count 18.8 x10^3/uL (4.0-10.5)
[2022-04-25 09:09] LABS: ALBUMIN 4.6 g/dL (3.5-5.0); ALKALINE PHOSPHATASE 102 U/L (38-126); ANION GAP 12.3 MEQ/L (5-15); BLOOD UREA NITROGEN 7 mg/dL (7-17); CHLORIDE 98 mmol/L (98-107); Calcium 8.7 mg/dL (8.4-10.2); Carbon Dioxide 27 mmol/L (22-30); EST GLOMERULAR FILTRATION RATE > 60.0 ML/MIN; Glucose 319 mg/dL (74-106); Potassium 3.8 mmol/L (3.5-5.1); SGOT/AST 29 U/L (14-36); SGPT/ALT 26 U/L (0-35); SODIUM 133 mmol/L (137-145)
--- NOTE | 2022-04-25 09:40 | XRAY ---
Exam: AP portable chest film from 6:56 AM on 04/25/2022. Comparison: None. Indication: 36-year-old female with leukocytosis. Findings: The patient is rotated mildly toward the left. The transverse heart size appears within normal limits. The panda and mediastinal structures appear unremarkable. The lungs are mildly hypoventilated. However, I see no air space infiltrates, vascular congestion, pneumothorax, or pleural fluid. There is a fracture deformity of the posterior right seventh rib which may be old. Correlate clinically. Also, there is a displaced fracture of the lateral aspect of the right clavicle of unknown age. The medial fractured clavicular element is displaced about 1.8 cm superiorly with respect to the lateral fractured clavicular element. I do not see any obvious disruption of the right acromioclavicular joint, although the right acromioclavicular joint space measures about 4.2 mm across which is somewhat wider than that seen on the left side. Correlate clinically with trauma history. The remainder of the bones appears unremarkable. Impression: 1. Slightly hypoventilated and rotated chest revealing no air space infiltrates or other acute cardiopulmonary disease. 2. Posterior right seventh rib fracture deformity of unknown age. This could be old. Correlate clinically. 3. Displaced ununited fracture of the lateral end of the right clavicle, as discussed above. Correlate with trauma history.
[2022-04-25] MEDS ORDERED: NON-FORMULARY ITEM (Sertraline Hcl [Zoloft] 100 MG Tablet) PO SCH (10:00)
--- NOTE | 2022-04-25 10:36 | XRAY ---
Exam: CT of the abdomen and pelvis without IV contrast from 04/25/2022. CTDI: 11.52 mGy Comparison: Supine film of the abdomen from 04/05/2022. Indication: 36-year-old female with history of abdominal pain and nausea/vomiting. She is status post cholecystectomy. Technique: Non-IV contrast axial images were obtained through the abdomen and pelvis. Reconstructed coronal and sagittal images were created and reviewed. Findings: There is scant linear scarring and/or plate atelectasis at both lung bases, best seen on the coronal images. There is also a tiny calcified granuloma at the lateral right lung base on coronal image #63. No airspace lung disease is seen at the lung bases. The heart size is normal. There appears to be mild generalized fatty infiltration of the liver (i.e. hepatic steatosis). In addition, the liver appears slightly enlarged measuring about 18.0 cm in greatest craniocaudal dimension in the midclavicular line on coronal image #57. The caudate lobe of the liver appears somewhat prominent. Correlate with liver function tests. I see no obvious liver mass, although sensitivity is decreased on a noncontrast exam only. No obvious intrahepatic biliary duct distention is seen. The gallbladder is not seen consistent with the history of prior cholecystectomy. There is a small amount of high attenuation material within the posterior aspect of the stomach lumen which may represent medication. The spleen is of normal normal size and reveals no definite mass. The pancreas and adrenal glands appear normal. The kidneys are of unremarkable size and reveal no hydronephrosis or renal calculi. The ureters are of unremarkable diameter and reveal no definite ureterolith. No urinary bladder stone is seen. The abdominal aorta appears of normal diameter revealing no abdominal aortic aneurysm. Minimal calcification within the distal right common iliac artery is seen. No abnormal retroperitoneal lymphadenopathy is seen. No free intraperitoneal air or ventral bowel containing hernia is seen. Moderate scattered stool is seen throughout the colon consistent with fecal stasis. I see no bowel distention to suggest mechanical obstruction. The bowel wall appears grossly unremarkable. The appendix appears unremarkable within the right lower quadrant. There is no significant diverticulosis or evidence of diverticulitis. The uterus is anteflexed and appears of unremarkable size. The ovaries appear grossly unremarkable bilaterally. No other pelvic mass or abnormal pelvic lymphadenopathy is seen. No free intraperitoneal fluid is seen. The urinary bladder is only partially distended. The urinary bladder wall measures about 4-5 mm in thickness which could be due to incomplete urinary bladder distention. Correlate clinically to exclude cystitis. Some calcified phleboliths are seen within the lower pelvis on each side of midline. Some apparent metallic clips are seen within each groin suggesting prior surgery. Correlate with surgical history. The skeleton reveals no acute fracture or aggressive bone lesion. Moderate degenerative changes are seen within the lower thoracic spine with vacuum disc phenomena within the anterior aspect of T11-T12. There also appears to be marked degenerative disc disease at L5-S1 with interspace narrowing, vacuum disc phenomena, discogenic sclerosis of both sides of the interspace, and moderate marginal vertebral endplate spurring. There is also minimal anterior subluxation of L5 over S1 which is likely degenerative in etiology. In addition to the degenerative disc disease at L5-S1, there is moderate facet joint arthropathy bilaterally at L5-S1. The other lumbar interspace heights are well-maintained. There is either a moderate broad-based posterior disc bulge or herniated disc at L4-L5 centered just to the left of midline. See axial image #56 and sagittal image #11. Correlate clinically. Impression: 1. There appears to be mild hepatic steatosis. In addition, the liver is borderline to slightly enlarged with a prominent caudate lobe. Correlate with liver function studies. 2. Moderate diffuse colonic stool is seen suggestive of constipation. I see no evidence of bowel obstruction. 3. Normal appendix. 4. No free intraperitoneal air or free intraperitoneal fluid is seen. 5. No renal/ureteral calculi, hydronephrosis, or other evidence of obstructive uropathy is seen. 6. The urinary bladder is only partially distended. This slightly accentuates the urinary bladder wall thickness to 4-5 mm. This could be due to the incomplete urinary bladder distention. Correlate clinically to exclude cystitis. 7. Skeletal findings, as discussed above.
[2022-04-25] MEDS: ZOLOFT 50 MG TABLET PO SCH (12:01)
[2022-04-25] MEDS: PLAVIX Tablet PO SCH (12:02)
--- NOTE | 2022-04-25 12:02 | XRAY ---
Exam: CTA of the abdomen and pelvis with IV contrast from 04/25/2022. CTDI: 27.63 mGy Comparison: CT of the abdomen and pelvis without IV contrast from earlier today on 04/25/2022. Indication: 36-year-old female with history of acute abdominal pain; nausea and vomiting. The patient has a history of prior cholecystectomy and section. Technique: CT angiography of the abdomen and pelvis was obtained with IV contrast utilizing 100 ML's of Isovue 370. The study was obtained during the arterial phase. Delay axial images were obtained through the abdomen and pelvis as well. No oral contrast was given. Volume rendered 3-D reconstructed images were created by the mechatronics technologist. Coronal and sagittal CT images of the abdomen and pelvis were created and reviewed during the arterial phase. Findings: Minimal linear scarring is seen anteriorly at the right lung base. I also note mild bilateral posterior dependent atelectatic changes. No abdominal aortic aneurysm is seen. There is moderate atherosclerotic disease of the distal 4.8 cm of the abdominal aorta, best seen on the coronal images. The celiac artery trunk, proximal superior mesenteric artery, and inferior mesenteric artery are identified without occlusion or significant stenosis. A single renal artery is seen perfusing each kidney. I see no occlusion or significant stenosis of either renal artery. The common iliac arteries appear unremarkable. I believe there is focal ostial stenosis of both the right and left origins of the internal iliac arteries. 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 Collateral flow reconstitutes the deep right femoral artery. There is some narrowing near the left common femoral artery-is proximal superficial femoral artery junction on the left, but flow is seen distally into the proximal left thigh. I again see borderline to slight hepatomegaly with hepatic steatosis. The caudate lobe of the liver appears prominent. Otherwise, the liver surface has a normal contour. I see no focal liver mass or intrahepatic biliary duct distention. The gallbladder is surgically absent. The spleen is of normal size and reveals no mass. Both the pancreas and adrenal glands appear unremarkable. The kidneys reveal normal cortical medullary differentiation. No hydronephrosis is seen. Delay images reveal normal function of both kidneys without evidence of renal mass. The ureters are opacified on delay images and appear unremarkable. No abnormality of the urinary bladder is seen. I see no evidence of bowel obstruction or bowel wall thickening. I again see moderate stool throughout the colon suggestive of constipation. The appendix appears unremarkable within the right lower quadrant. There is no evidence of appendicitis. There is no evidence of free intraperitoneal air or free intraperitoneal fluid. No abnormal focal fluid collections are seen. No abnormal retroperitoneal lymphadenopathy or pelvic lymphadenopathy is seen. On delayed axial images #90 through #93, there appears to be an involuting left ovarian corpus luteal cyst. The uterus is anteflexed and appears unremarkable. The urinary bladder is moderately distended and reveals no significant abnormality. Postoperative changes are seen within each groin. Multilevel degenerative disease and facet arthropathy are noted within the lower thoracolumbar spine, as previously discussed on the CT the abdomen and pelvis without IV contrast from earlier today. On delay axial image #69 and #70, there is a broad-based moderate posterior disc bulge or herniation centered at or just to the left of midline. This is unchanged from the earlier CT study. Impression: 1. 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 Collateral flow reconstitutes within the deep right femoral artery. 2. Other atherosclerotic disease is seen, as discussed above. 3. Involuting left ovarian corpus luteal cyst. 4. Borderline to mild hepatomegaly with steatosis. 5. Postoperative changes are seen within each groin. Correlate with surgical history. 6. Moderate retained stool within the colon suggestive of constipation. No bowel obstruction is seen. The appendix appears unremarkable. 7. Degenerative changes are again seen within the lower thoracolumbar spine, as previously discussed on the CT of the abdomen and pelvis without IV contrast from earlier today.
[2022-04-25] MEDS: ENOXAPARIN SODIUM SQ SCH (12:03)
[2022-04-25] MEDS: HUMALOG SQ PRN ×3 (12:04→21:41)
[2022-04-25] MEDS: PROTONIX 40 MG IV IV SCH (12:05)
[2022-04-25] MEDS ORDERED: Lactated Ringers 1,000 ML IV SCH (17:00)
--- NOTE | 2022-04-25 17:05 | PCM.HP ---
History of Present Illness - Chief Complaint Chief Complaint: lactic acidosis History of Present Illness: is a 36 year old female pt of Dr. Briggs with DM, HTN, and PAD (hx R fem-pop bypass and L leg stent) who was admitted to [facility] through ER with abdominal pain and hyperglycemia. She had C. diff last month; after tx was constipated and took 3 enemas. Has not been regular since. Took a suppository for the first time last night and had sweats and palpitations on the toilet. Abd pain 8/10, epigastric. Heart racing, CP, anxious. no fever. She had a lot of vomiting at home and was very nauseated here this morning. Has only vomited x 1 today since was started on zofran and phenergan. Lactic acid elevated in ER: down to normal since 0900. - Review of Systems Cardiac: Edema (chronic LE bilat), Palpitations Abdominal/Gastrointestinal: Abdominal Pain, Nausea, Vomiting, Diarrhea, Constipation Psychological: Anxiety All Other Systems: Reviewed and Negative Medications & Allergies Home Medications: Home Medication List Clopidogrel Bisulfate [PLAVIX Tablet] 75 mg PO DAILY 04/05/22 [History Confirmed 04/25/22] Metformin HCl 500 mg [Glucophage 500 MG] 1,000 mg PO BIDWM 04/05/22 [History Confirmed 04/25/22] Sertraline HCl [Zoloft] 100 mg PO DAILY 04/05/22 [History Confirmed 04/25/22] Allergies/Adverse Reactions: Allergies Allergy/AdvReac Type Severity Reaction Status Date / Time erythromycin base Allergy Verified 04/05/22 12:44 Penicillins Allergy Verified 04/05/22 11:27 - Past Medical History Past Medical History: Yes Cardiac History: Other Endocrine Medical History: Diabetes Type II GI Medical History: Irritable Bowel Pyscho-Social History: Anxiety, Depression Comment: PAD peripheral arterial disease - Female History Hx Last Menstrual Period: 04/08/22 Are you now?: No - Past Surgical History Past Surgical History: Yes GI Surgical History: Cholecystectomy - Social History Smoking Status: Current every day smoker How long have you smoked: 20 years Exposure to second hand smoke: Yes Alcohol: None Drug Use: marijuana - Physical Exam Vital Signs: Vital Signs - 24 hr Temp Pulse Resp BP Pulse Ox 04/25/22 16:00 99.5 F 102 H 18 130/71 97 04/25/22 11:42 97.5 F 96 H 16 168/81 96 04/25/22 08:12 97.7 F 87 16 180/92 97 04/25/22 06:52 100 04/25/22 06:23 73 16 181/96 100 04/25/22 05:00 75 16 170/87 99 04/25/22 04:00 82 18 189/99 95 04/25/22 03:32 74 16 197/96 100 04/25/22 02:00 74 18 172/106 100 04/25/22 00:29 97.1 F 84 16 184/113 100 General Appearance: no apparent distress, alert Neurologic Exam: oriented x 3, cooperative Eye Exam: eyes nml inspection Ears, Nose, Throat Exam: moist mucous membranes Neck Exam: normal inspection, non-tender, No lymphadenopathy, No thyromegaly Respiratory Exam: normal breath sounds, lungs clear, No crackles/rales, No rhonchi, No wheezing Cardiovascular Exam: normal heart sounds, tachycardia, other (normal rhythm), No murmur Gastrointestinal/Abdomen Exam: soft, No normal bowel sounds (hypoactive), No tenderness, No distention, No mass, No guarding, No rebound Back Exam: normal inspection, No CVA tenderness, No rash Skin Exam: normal color, warm, dry, No rash Results - Labs Lab/Micro Results: Lab Results-Last 24 Hours 04/25/22 04/25/22 04/25/22 Range/Units 01:30 01:30 01:30 WBC 18.0 H (4.0-10.5) x10^3/uL RBC 4.46 (4.1-5.4) x10^6/uL Hgb 13.2 (12.0-16.0) g/dL Hct 38.7 (35-47) % MCV 86.8 (78-100) fL MCH 29.6 (26-32) pg MCHC 34.1 (32-36) g/dL RDW 12.8 (11.5-14.0) % Plt Count 333 (150-450) x10^3/uL MPV 10.9 (7.5-11.0) fL Gran % 83.3 H (36.0-66.0) % Immature Gran % (Auto) 0.7 H (0.00-0.4) % Nucleat RBC Rel Count 0.0 (0.00-0.1) % Eos # (Auto) 0.07 (0-0.5) x10^3/uL Immature Gran # (Auto) 0.12 H (0.00-0.03) x10^3u/L Absolute Lymphs (auto) 1.52 (1.0-4.6) x10^3/uL Absolute Monos (auto) 1.19 (0.0-1.3) x10^3/uL Absolute Nucleated RBC 0.00 (0.00-0.01) x10^3u/L Lymphocytes % 8.5 L (24.0-44.0) % Monocytes % 6.6 (0.0-12.0) % Eosinophils % 0.4 (0.00-5.0) % Basophils % 0.5 (0.0-0.4) % Absolute Granulocytes 14.99 H (1.4-6.9) x10^3/uL Basophils # 0.09 (0-0.4) x10^3/uL Sodium 131 L (137-145) mmol/L Potassium 3.7 (3.5-5.1) mmol/L Chloride 95 L (98-107) mmol/L Carbon Dioxide 24 (22-30) mmol/L Anion Gap 16.0 H (5-15) MEQ/L BUN 10 (7-17) mg/dL Creatinine 0.43 L (0.52-1.04) mg/dL Estimated GFR > 60.0 ML/MIN Glucose 439 H (74-106) mg/dL POC Glucometer (74 to 106) mg/dL Hemoglobin A1c (4.5-6.0) % Lactic Acid (0.4-2.0) Calcium 9.7 (8.4-10.2) mg/dL Total Bilirubin 0.40 (0.2-1.3) mg/dL AST 28 (14-36) U/L ALT 26 (0-35) U/L Alkaline Phosphatase 118 (38-126) U/L Troponin I (0.000-0.034) ng/mL Serum Total Protein 7.9 (6.3-8.2) g/dL Albumin 4.7 (3.5-5.0) g/dL Amylase 54 (30-110) U/L Lipase 120 (23-300) U/L Procalcitonin (0.030-0.080) ng/mL Serum , Qual NEGATIVE (Negative) Urinalys Dipstick Clnc Urine Color (YELLOW) Urine Appearance (CLEAR) Urine pH (5-6) Ur Specific [place] (1.005-1.025) POC Urine Protein Conf (Negative) Urine Ketones (NEGATIVE) Urine Nitrite (NEGATIVE) Urine Bilirubin (NEGATIVE) Urine Urobilinogen (0-1) mg/dL Urine Leukocytes (NEGATIVE) Urine WBC (Auto) (0-5) /HPF Urine RBC (Auto) (0-2) /HPF U Epithel Cells (Auto) (FEW) /HPF Urine Bacteria (Auto) (NEGATIVE) /HPF Urine RBC (0-5) Adrien/ul Ur Culture Indicated? Urine Glucose (NEGATIVE) mg/dL Urine Opiates Level (NEGATIVE) Ur Methadone (NEGATIVE) Urine Barbiturates (NEGATIVE) Ur Phencyclidine (PCP) (NEGATIVE) Urine Amphetamine (NEGATIVE) U Benzodiazepine Level (NEGATIVE) Urine Cocaine (NEGATIVE) Urine Marijuana (THC) (NEGATIVE) Influenza Type A Ag (NEGATIVE) Influenza Type B Ag (NEGATIVE) RSV (PCR) (Negative) SARS-CoV-2 (PCR) (NEGATIVE) 04/25/22 04/25/22 04/25/22 Range/Units 01:30 01:47 02:21 WBC (4.0-10.5) x10^3/uL RBC (4.1-5.4) x10^6/uL Hgb (12.0-16.0) g/dL Hct (35-47) % MCV (78-100) fL MCH (26-32) pg MCHC (32-36) g/dL RDW (11.5-14.0) % Plt Count (150-450) x10^3/uL MPV (7.5-11.0) fL Gran % (36.0-66.0) % Immature Gran % (Auto) (0.00-0.4) % Nucleat RBC Rel Count (0.00-0.1) % Eos # (Auto) (0-0.5) x10^3/uL Immature Gran # (Auto) (0.00-0.03) x10^3u/L Absolute Lymphs (auto) (1.0-4.6) x10^3/uL Absolute Monos (auto) (0.0-1.3) x10^3/uL Absolute Nucleated RBC (0.00-0.01) x10^3u/L Lymphocytes % (24.0-44.0) % Monocytes % (0.0-12.0) % Eosinophils % (0.00-5.0) % Basophils % (0.0-0.4) % Absolute Granulocytes (1.4-6.9) x10^3/uL Basophils # (0-0.4) x10^3/uL Sodium (137-145) mmol/L Potassium (3.5-5.1) mmol/L Chloride (98-107) mmol/L Carbon Dioxide (22-30) mmol/L Anion Gap (5-15) MEQ/L BUN (7-17) mg/dL Creatinine (0.52-1.04) mg/dL Estimated GFR ML/MIN Glucose (74-106) mg/dL POC Glucometer (74 to 106) mg/dL Hemoglobin A1c (4.5-6.0) % Lactic Acid 4.4 H (0.4-2.0) Calcium (8.4-10.2) mg/dL Total Bilirubin (0.2-1.3) mg/dL AST (14-36) U/L ALT (0-35) U/L Alkaline Phosphatase (38-126) U/L Troponin I < 0.012 (0.000-0.034) ng/mL Serum Total Protein (6.3-8.2) g/dL Albumin (3.5-5.0) g/dL Amylase (30-110) U/L Lipase (23-300) U/L Procalcitonin (0.030-0.080) ng/mL Serum , Qual (Negative) Urinalys Dipstick Clnc Urine Color (YELLOW) Urine Appearance (CLEAR) Urine pH (5-6) Ur Specific [place] (1.005-1.025) POC Urine Protein Conf (Negative) Urine Ketones (NEGATIVE) Urine Nitrite (NEGATIVE) Urine Bilirubin (NEGATIVE) Urine Urobilinogen (0-1) mg/dL Urine Leukocytes (NEGATIVE) Urine WBC (Auto) (0-5) /HPF Urine RBC (Auto) (0-2) /HPF U Epithel Cells (Auto) (FEW) /HPF Urine Bacteria (Auto) (NEGATIVE) /HPF Urine RBC (0-5) Adrien/ul Ur Culture Indicated? Urine Glucose (NEGATIVE) mg/dL Urine Opiates Level (NEGATIVE) Ur Methadone (NEGATIVE) Urine Barbiturates (NEGATIVE) Ur Phencyclidine (PCP) (NEGATIVE) Urine Amphetamine (NEGATIVE) U Benzodiazepine Level (NEGATIVE) Urine Cocaine (NEGATIVE) Urine Marijuana (THC) (NEGATIVE) Influenza Type A Ag NEGATIVE (NEGATIVE) Influenza Type B Ag NEGATIVE (NEGATIVE) RSV (PCR) NEGATIVE (Negative) SARS-CoV-2 (PCR) NEGATIVE (NEGATIVE) 04/25/22 04/25/22 04/25/22 Range/Units 02:34 03:53 04:01 WBC (4.0-10.5) x10^3/uL RBC (4.1-5.4) x10^6/uL Hgb (12.0-16.0) g/dL Hct (35-47) % MCV (78-100) fL MCH (26-32) pg MCHC (32-36) g/dL RDW (11.5-14.0) % Plt Count (150-450) x10^3/uL MPV (7.5-11.0) fL Gran % (36.0-66.0) % Immature Gran % (Auto) (0.00-0.4) % Nucleat RBC Rel Count (0.00-0.1) % Eos # (Auto) (0-0.5) x10^3/uL Immature Gran # (Auto) (0.00-0.03) x10^3u/L Absolute Lymphs (auto) (1.0-4.6) x10^3/uL Absolute Monos (auto) (0.0-1.3) x10^3/uL Absolute Nucleated RBC (0.00-0.01) x10^3u/L Lymphocytes % (24.0-44.0) % Monocytes % (0.0-12.0) % Eosinophils % (0.00-5.0) % Basophils % (0.0-0.4) % Absolute Granulocytes (1.4-6.9) x10^3/uL Basophils # (0-0.4) x10^3/uL Sodium (137-145) mmol/L Potassium (3.5-5.1) mmol/L Chloride (98-107) mmol/L Carbon Dioxide (22-30) mmol/L Anion Gap (5-15) MEQ/L BUN (7-17) mg/dL Creatinine (0.52-1.04) mg/dL Estimated GFR ML/MIN Glucose (74-106) mg/dL POC Glucometer 392 H (74 to 106) mg/dL Hemoglobin A1c (4.5-6.0) % Lactic Acid 3.7 H (0.4-2.0) Calcium (8.4-10.2) mg/dL Total Bilirubin (0.2-1.3) mg/dL AST (14-36) U/L ALT (0-35) U/L Alkaline Phosphatase (38-126) U/L Troponin I (0.000-0.034) ng/mL Serum Total Protein (6.3-8.2) g/dL Albumin (3.5-5.0) g/dL Amylase (30-110) U/L Lipase (23-300) U/L Procalcitonin (0.030-0.080) ng/mL Serum , Qual (Negative) Urinalys Dipstick Clnc Urine Color (YELLOW) Urine Appearance (CLEAR) Urine pH (5-6) Ur Specific [place] (1.005-1.025) POC Urine Protein Conf (Negative) Urine Ketones (NEGATIVE) Urine Nitrite (NEGATIVE) Urine Bilirubin (NEGATIVE) Urine Urobilinogen (0-1) mg/dL Urine Leukocytes (NEGATIVE) Urine WBC (Auto) (0-5) /HPF Urine RBC (Auto) (0-2) /HPF U Epithel Cells (Auto) (FEW) /HPF Urine Bacteria (Auto) (NEGATIVE) /HPF Urine RBC (0-5) Adrien/ul Ur Culture Indicated? Urine Glucose (NEGATIVE) mg/dL Urine Opiates Level NEGATIVE (NEGATIVE) Ur Methadone NEGATIVE (NEGATIVE) Urine Barbiturates NEGATIVE (NEGATIVE) Ur Phencyclidine (PCP) NEGATIVE (NEGATIVE) Urine Amphetamine NEGATIVE (NEGATIVE) U Benzodiazepine Level NEGATIVE (NEGATIVE) Urine Cocaine NEGATIVE (NEGATIVE) Urine Marijuana (THC) POSITIVE (NEGATIVE) Influenza Type A Ag (NEGATIVE) Influenza Type B Ag (NEGATIVE) RSV (PCR) (Negative) SARS-CoV-2 (PCR) (NEGATIVE) 04/25/22 04/25/22 04/25/22 Range/Units 04:01 04:52 04:52 WBC (4.0-10.5) x10^3/uL RBC (4.1-5.4) x10^6/uL Hgb (12.0-16.0) g/dL Hct (35-47) % MCV (78-100) fL MCH (26-32) pg MCHC (32-36) g/dL RDW (11.5-14.0) % Plt Count (150-450) x10^3/uL MPV (7.5-11.0) fL Gran % (36.0-66.0) % Immature Gran % (Auto) (0.00-0.4) % Nucleat RBC Rel Count (0.00-0.1) % Eos # (Auto) (0-0.5) x10^3/uL Immature Gran # (Auto) (0.00-0.03) x10^3u/L Absolute Lymphs (auto) (1.0-4.6) x10^3/uL Absolute Monos (auto) (0.0-1.3) x10^3/uL Absolute Nucleated RBC (0.00-0.01) x10^3u/L Lymphocytes % (24.0-44.0) % Monocytes % (0.0-12.0) % Eosinophils % (0.00-5.0) % Basophils % (0.0-0.4) % Absolute Granulocytes (1.4-6.9) x10^3/uL Basophils # (0-0.4) x10^3/uL Sodium 132 L (137-145) mmol/L Potassium 3.8 (3.5-5.1) mmol/L Chloride 98 (98-107) mmol/L Carbon Dioxide 25 (22-30) mmol/L Anion Gap 12.7 (5-15) MEQ/L BUN 8 (7-17) mg/dL Creatinine 0.37 L (0.52-1.04) mg/dL Estimated GFR > 60.0 ML/MIN Glucose 385 H (74-106) mg/dL POC Glucometer (74 to 106) mg/dL Hemoglobin A1c (4.5-6.0) % Lactic Acid (0.4-2.0) Calcium 8.5 (8.4-10.2) mg/dL Total Bilirubin (0.2-1.3) mg/dL AST (14-36) U/L ALT (0-35) U/L Alkaline Phosphatase (38-126) U/L Troponin I < 0.012 (0.000-0.034) ng/mL Serum Total Protein (6.3-8.2) g/dL Albumin (3.5-5.0) g/dL Amylase (30-110) U/L Lipase (23-300) U/L Procalcitonin (0.030-0.080) ng/mL Serum , Qual (Negative) Urinalys Dipstick Clnc MAIN LAB Urine Color YELLOW (YELLOW) Urine Appearance CLEAR (CLEAR) Urine pH 7.5 (5-6) Ur Specific [place] 1.020 (1.005-1.025) POC Urine Protein Conf 100 (Negative) Urine Ketones SMALL-15 (NEGATIVE) Urine Nitrite NEGATIVE (NEGATIVE) Urine Bilirubin NEGATIVE (NEGATIVE) Urine Urobilinogen 0.2 (0-1) mg/dL Urine Leukocytes NEGATIVE (NEGATIVE) Urine WBC (Auto) NONE (0-5) /HPF Urine RBC (Auto) NONE (0-2) /HPF U Epithel Cells (Auto) NONE (FEW) /HPF Urine Bacteria (Auto) NONE (NEGATIVE) /HPF Urine RBC 5-10 (0-5) Adrien/ul Ur Culture Indicated? NO Urine Glucose 500 (NEGATIVE) mg/dL Urine Opiates Level (NEGATIVE) Ur Methadone (NEGATIVE) Urine Barbiturates (NEGATIVE) Ur Phencyclidine (PCP) (NEGATIVE) Urine Amphetamine (NEGATIVE) U Benzodiazepine Level (NEGATIVE) Urine Cocaine (NEGATIVE) Urine Marijuana (THC) (NEGATIVE) Influenza Type A Ag (NEGATIVE) Influenza Type B Ag (NEGATIVE) RSV (PCR) (Negative) SARS-CoV-2 (PCR) (NEGATIVE) 04/25/22 04/25/22 04/25/22 Range/Units 06:00 06:33 08:45 WBC (4.0-10.5) x10^3/uL RBC (4.1-5.4) x10^6/uL Hgb (12.0-16.0) g/dL Hct (35-47) % MCV (78-100) fL MCH (26-32) pg MCHC (32-36) g/dL RDW (11.5-14.0) % Plt Count (150-450) x10^3/uL MPV (7.5-11.0) fL Gran % (36.0-66.0) % Immature Gran % (Auto) (0.00-0.4) % Nucleat RBC Rel Count (0.00-0.1) % Eos # (Auto) (0-0.5) x10^3/uL Immature Gran # (Auto) (0.00-0.03) x10^3u/L Absolute Lymphs (auto) (1.0-4.6) x10^3/uL Absolute Monos (auto) (0.0-1.3) x10^3/uL Absolute Nucleated RBC (0.00-0.01) x10^3u/L Lymphocytes % (24.0-44.0) % Monocytes % (0.0-12.0) % Eosinophils % (0.00-5.0) % Basophils % (0.0-0.4) % Absolute Granulocytes (1.4-6.9) x10^3/uL Basophils # (0-0.4) x10^3/uL Sodium (137-145) mmol/L Potassium (3.5-5.1) mmol/L Chloride (98-107) mmol/L Carbon Dioxide (22-30) mmol/L Anion Gap (5-15) MEQ/L BUN (7-17) mg/dL Creatinine (0.52-1.04) mg/dL Estimated GFR ML/MIN Glucose (74-106) mg/dL POC Glucometer 270 H (74 to 106) mg/dL Hemoglobin A1c (4.5-6.0) % Lactic Acid 3.7 H (0.4-2.0) Calcium (8.4-10.2) mg/dL Total Bilirubin (0.2-1.3) mg/dL AST (14-36) U/L ALT (0-35) U/L Alkaline Phosphatase (38-126) U/L Troponin I < 0.012 (0.000-0.034) ng/mL Serum Total Protein (6.3-8.2) g/dL Albumin (3.5-5.0) g/dL Amylase (30-110) U/L Lipase (23-300) U/L Procalcitonin (0.030-0.080) ng/mL Serum , Qual (Negative) Urinalys Dipstick Clnc Urine Color (YELLOW) Urine Appearance (CLEAR) Urine pH (5-6) Ur Specific [place] (1.005-1.025) POC Urine Protein Conf (Negative) Urine Ketones (NEGATIVE) Urine Nitrite (NEGATIVE) Urine Bilirubin (NEGATIVE) Urine Urobilinogen (0-1) mg/dL Urine Leukocytes (NEGATIVE) Urine WBC (Auto) (0-5) /HPF Urine RBC (Auto) (0-2) /HPF U Epithel Cells (Auto) (FEW) /HPF Urine Bacteria (Auto) (NEGATIVE) /HPF Urine RBC (0-5) Adrien/ul Ur Culture Indicated? Urine Glucose (NEGATIVE) mg/dL Urine Opiates Level (NEGATIVE) Ur Methadone (NEGATIVE) Urine Barbiturates (NEGATIVE) Ur Phencyclidine (PCP) (NEGATIVE) Urine Amphetamine (NEGATIVE) U Benzodiazepine Level (NEGATIVE) Urine Cocaine (NEGATIVE) Urine Marijuana (THC) (NEGATIVE) Influenza Type A Ag (NEGATIVE) Influenza Type B Ag (NEGATIVE) RSV (PCR) (Negative) SARS-CoV-2 (PCR) (NEGATIVE) 04/25/22 04/25/22 04/25/22 Range/Units 08:45 08:45 08:45 WBC 18.8 H (4.0-10.5) x10^3/uL RBC 4.32 (4.1-5.4) x10^6/uL Hgb 12.7 (12.0-16.0) g/dL Hct 37.1 (35-47) % MCV 85.9 (78-100) fL MCH 29.4 (26-32) pg MCHC 34.2 (32-36) g/dL RDW 12.7 (11.5-14.0) % Plt Count 309 (150-450) x10^3/uL MPV 10.7 (7.5-11.0) fL Gran % 91.9 H (36.0-66.0) % Immature Gran % (Auto) 0.5 H (0.00-0.4) % Nucleat RBC Rel Count 0.0 (0.00-0.1) % Eos # (Auto) 0 (0-0.5) x10^3/uL Immature Gran # (Auto) 0.10 H (0.00-0.03) x10^3u/L Absolute Lymphs (auto) 0.71 L (1.0-4.6) x10^3/uL Absolute Monos (auto) 0.66 (0.0-1.3) x10^3/uL Absolute Nucleated RBC 0.00 (0.00-0.01) x10^3u/L Lymphocytes % 3.8 L (24.0-44.0) % Monocytes % 3.5 (0.0-12.0) % Eosinophils % 0.0 (0.00-5.0) % Basophils % 0.3 (0.0-0.4) % Absolute Granulocytes 17.30 H (1.4-6.9) x10^3/uL Basophils # 0.05 (0-0.4) x10^3/uL Sodium 133 L (137-145) mmol/L Potassium 3.8 (3.5-5.1) mmol/L Chloride 98 (98-107) mmol/L Carbon Dioxide 27 (22-30) mmol/L Anion Gap 12.3 (5-15) MEQ/L BUN 7 (7-17) mg/dL Creatinine 0.30 L (0.52-1.04) mg/dL Estimated GFR > 60.0 ML/MIN Glucose 319 H (74-106) mg/dL POC Glucometer (74 to 106) mg/dL Hemoglobin A1c (4.5-6.0) % Lactic Acid (0.4-2.0) Calcium 8.7 (8.4-10.2) mg/dL Total Bilirubin 0.40 (0.2-1.3) mg/dL AST 29 (14-36) U/L ALT 26 (0-35) U/L Alkaline Phosphatase 102 (38-126) U/L Troponin I (0.000-0.034) ng/mL Serum Total Protein 8.0 (6.3-8.2) g/dL Albumin 4.6 (3.5-5.0) g/dL Amylase (30-110) U/L Lipase (23-300) U/L Procalcitonin 0.065 (0.030-0.080) ng/mL Serum , Qual (Negative) Urinalys Dipstick Clnc Urine Color (YELLOW) Urine Appearance (CLEAR) Urine pH (5-6) Ur Specific [place] (1.005-1.025) POC Urine Protein Conf (Negative) Urine Ketones (NEGATIVE) Urine Nitrite (NEGATIVE) Urine Bilirubin (NEGATIVE) Urine Urobilinogen (0-1) mg/dL Urine Leukocytes (NEGATIVE) Urine WBC (Auto) (0-5) /HPF Urine RBC (Auto) (0-2) /HPF U Epithel Cells (Auto) (FEW) /HPF Urine Bacteria (Auto) (NEGATIVE) /HPF Urine RBC (0-5) Adrien/ul Ur Culture Indicated? Urine Glucose (NEGATIVE) mg/dL Urine Opiates Level (NEGATIVE) Ur Methadone (NEGATIVE) Urine Barbiturates (NEGATIVE) Ur Phencyclidine (PCP) (NEGATIVE) Urine Amphetamine (NEGATIVE) U Benzodiazepine Level (NEGATIVE) Urine Cocaine (NEGATIVE) Urine Marijuana (THC) (NEGATIVE) Influenza Type A Ag (NEGATIVE) Influenza Type B Ag (NEGATIVE) RSV (PCR) (Negative) SARS-CoV-2 (PCR) (NEGATIVE) 04/25/22 04/25/22 04/25/22 Range/Units 08:45 09:05 11:08 WBC (4.0-10.5) x10^3/uL RBC (4.1-5.4) x10^6/uL Hgb (12.0-16.0) g/dL Hct (35-47) % MCV (78-100) fL MCH (26-32) pg MCHC (32-36) g/dL RDW (11.5-14.0) % Plt Count (150-450) x10^3/uL MPV (7.5-11.0) fL Gran % (36.0-66.0) % Immature Gran % (Auto) (0.00-0.4) % Nucleat RBC Rel Count (0.00-0.1) % Eos # (Auto) (0-0.5) x10^3/uL Immature Gran # (Auto) (0.00-0.03) x10^3u/L Absolute Lymphs (auto) (1.0-4.6) x10^3/uL Absolute Monos (auto) (0.0-1.3) x10^3/uL Absolute Nucleated RBC (0.00-0.01) x10^3u/L Lymphocytes % (24.0-44.0) % Monocytes % (0.0-12.0) % Eosinophils % (0.00-5.0) % Basophils % (0.0-0.4) % Absolute Granulocytes (1.4-6.9) x10^3/uL Basophils # (0-0.4) x10^3/uL Sodium (137-145) mmol/L Potassium (3.5-5.1) mmol/L Chloride (98-107) mmol/L Carbon Dioxide (22-30) mmol/L Anion Gap (5-15) MEQ/L BUN (7-17) mg/dL Creatinine (0.52-1.04) mg/dL Estimated GFR ML/MIN Glucose (74-106) mg/dL POC Glucometer 295 H (74 to 106) mg/dL Hemoglobin A1c 10.36 H (4.5-6.0) % Lactic Acid 1.9 (0.4-2.0) Calcium (8.4-10.2) mg/dL Total Bilirubin (0.2-1.3) mg/dL AST (14-36) U/L ALT (0-35) U/L Alkaline Phosphatase (38-126) U/L Troponin I (0.000-0.034) ng/mL Serum Total Protein (6.3-8.2) g/dL Albumin (3.5-5.0) g/dL Amylase (30-110) U/L Lipase (23-300) U/L Procalcitonin (0.030-0.080) ng/mL Serum , Qual (Negative) Urinalys Dipstick Clnc Urine Color (YELLOW) Urine Appearance (CLEAR) Urine pH (5-6) Ur Specific [place] (1.005-1.025) POC Urine Protein Conf (Negative) Urine Ketones (NEGATIVE) Urine Nitrite (NEGATIVE) Urine Bilirubin (NEGATIVE) Urine Urobilinogen (0-1) mg/dL Urine Leukocytes (NEGATIVE) Urine WBC (Auto) (0-5) /HPF Urine RBC (Auto) (0-2) /HPF U Epithel Cells (Auto) (FEW) /HPF Urine Bacteria (Auto) (NEGATIVE) /HPF Urine RBC (0-5) Adrien/ul Ur Culture Indicated? Urine Glucose (NEGATIVE) mg/dL Urine Opiates Level (NEGATIVE) Ur Methadone (NEGATIVE) Urine Barbiturates (NEGATIVE) Ur Phencyclidine (PCP) (NEGATIVE) Urine Amphetamine (NEGATIVE) U Benzodiazepine Level (NEGATIVE) Urine Cocaine (NEGATIVE) Urine Marijuana (THC) (NEGATIVE) Influenza Type A Ag (NEGATIVE) Influenza Type B Ag (NEGATIVE) RSV (PCR) (Negative) SARS-CoV-2 (PCR) (NEGATIVE) 04/25/22 Range/Units 15:55 WBC (4.0-10.5) x10^3/uL RBC (4.1-5.4) x10^6/uL Hgb (12.0-16.0) g/dL Hct (35-47) % MCV (78-100) fL MCH (26-32) pg MCHC (32-36) g/dL RDW (11.5-14.0) % Plt Count (150-450) x10^3/uL MPV (7.5-11.0) fL Gran % (36.0-66.0) % Immature Gran % (Auto) (0.00-0.4) % Nucleat RBC Rel Count (0.00-0.1) % Eos # (Auto) (0-0.5) x10^3/uL Immature Gran # (Auto) (0.00-0.03) x10^3u/L Absolute Lymphs (auto) (1.0-4.6) x10^3/uL Absolute Monos (auto) (0.0-1.3) x10^3/uL Absolute Nucleated RBC (0.00-0.01) x10^3u/L Lymphocytes % (24.0-44.0) % Monocytes % (0.0-12.0) % Eosinophils % (0.00-5.0) % Basophils % (0.0-0.4) % Absolute Granulocytes (1.4-6.9) x10^3/uL Basophils # (0-0.4) x10^3/uL Sodium (137-145) mmol/L Potassium (3.5-5.1) mmol/L Chloride (98-107) mmol/L Carbon Dioxide (22-30) mmol/L Anion Gap (5-15) MEQ/L BUN (7-17) mg/dL Creatinine (0.52-1.04) mg/dL Estimated GFR ML/MIN Glucose (74-106) mg/dL POC Glucometer 262 H (74 to 106) mg/dL Hemoglobin A1c (4.5-6.0) % Lactic Acid (0.4-2.0) Calcium (8.4-10.2) mg/dL Total Bilirubin (0.2-1.3) mg/dL AST (14-36) U/L ALT (0-35) U/L Alkaline Phosphatase (38-126) U/L Troponin I (0.000-0.034) ng/mL Serum Total Protein (6.3-8.2) g/dL Albumin (3.5-5.0) g/dL Amylase (30-110) U/L Lipase (23-300) U/L Procalcitonin (0.030-0.080) ng/mL Serum , Qual (Negative) Urinalys Dipstick Clnc Urine Color (YELLOW) Urine Appearance (CLEAR) Urine pH (5-6) Ur Specific [place] (1.005-1.025) POC Urine Protein Conf (Negative) Urine Ketones (NEGATIVE) Urine Nitrite (NEGATIVE) Urine Bilirubin (NEGATIVE) Urine Urobilinogen (0-1) mg/dL Urine Leukocytes (NEGATIVE) Urine WBC (Auto) (0-5) /HPF Urine RBC (Auto) (0-2) /HPF U Epithel Cells (Auto) (FEW) /HPF Urine Bacteria (Auto) (NEGATIVE) /HPF Urine RBC (0-5) Adrien/ul Ur Culture Indicated? Urine Glucose (NEGATIVE) mg/dL Urine Opiates Level (NEGATIVE) Ur Methadone (NEGATIVE) Urine Barbiturates (NEGATIVE) Ur Phencyclidine (PCP) (NEGATIVE) Urine Amphetamine (NEGATIVE) U Benzodiazepine Level (NEGATIVE) Urine Cocaine (NEGATIVE) Urine Marijuana (THC) (NEGATIVE) Influenza Type A Ag (NEGATIVE) Influenza Type B Ag (NEGATIVE) RSV (PCR) (Negative) SARS-CoV-2 (PCR) (NEGATIVE) Accuchecks Date 04/25/22 Date 04/25/22 - Radiology Impressions Radiology Exams & Impressions: Radiology Procedures Category Date Time Status ABDOMEN AND PELVIS W/0 CONTRAS [CT] Stat Exams 04/25/22 02:17 Completed CHEST 1 VIEW (PORTABLE) Stat Exams 04/25/22 06:46 Completed CTA ABD/PEL W AND/OR W/O CONTR [CT] Stat Exams 04/25/22 04:41 Completed Assessment/Plan (1) Abdominal pain Current Visit: Yes Status: Acute Qualifiers: Abdominal location: epigastric Qualified Code(s): R10.13 - Epigastric pain Assessment & Plan: Doing well currently. Unsure the etiology. On IV fluids; will advance diet slowly. has had cholecystectomy. Code(s): R10.9 - UNSPECIFIED ABDOMINAL PAIN (2) Hyperglycemia Current Visit: Yes Status: Chronic Assessment & Plan: a1c is >10 Code(s): R73.9 - HYPERGLYCEMIA, UNSPECIFIED (3) Lactic acid acidosis Current Visit: Yes Status: Resolved Code(s): E87.2 - ACIDOSIS (4) Nausea & vomiting Current Visit: Yes Status: Resolved Code(s): R11.2 - NAUSEA WITH VOMITING, UNSPECIFIED (5) PVD (peripheral vascular disease) Current Visit: Yes Status: Chronic Code(s): I73.9 - PERIPHERAL VASCULAR DISEASE, UNSPECIFIED
[2022-04-25] MEDS: Acidophilus TABLET PO SCH ×2 (18:22→21:40)
[2022-04-25] MEDS ORDERED: DESYREL 50 MG PO PRN (21:00)
[2022-04-26 05:16] LABS: Absolute Neutrophil Ct (ANC) 8.85 x10^3/uL (1.4-6.9); Basophil (Absolute #) 0.04 x10^3/uL (0-0.4); Eosinophil % 0.7 % (0.00-5.0); Eosinophil (Absolute #) 0.08 x10^3/uL (0-0.5); Hematocrit 36.7 % (35-47); Hemoglobin 12.1 g/dL (12.0-16.0); Lymphocyte (Absolute #) 1.87 x10^3/uL (1.0-4.6); Lymphocytes % 16.1 % (24.0-44.0); Mean Cell Volume 88.6 fL (78-100); Mean Corpuscular Hemoglobin 29.2 pg (26-32); Mean Platelet Volume 10.8 fL (7.5-11.0); Monocyte (Absolute #) 0.75 x10^3/uL (0.0-1.3); Monocytes % 6.4 % (0.0-12.0); Platelet Count 279 x10^3/uL (150-450); Red Blood Count 4.14 x10^6/uL (4.1-5.4); Red Cell Distribution Width 13.2 % (11.5-14.0); White Blood Count 11.7 x10^3/uL (4.0-10.5)
[2022-04-26 05:48] LABS: ALBUMIN 3.8 g/dL (3.5-5.0); ALKALINE PHOSPHATASE 78 U/L (38-126); ANION GAP 7.7 MEQ/L (5-15); BLOOD UREA NITROGEN 5 mg/dL (7-17); CHLORIDE 99 mmol/L (98-107); Calcium 8.1 mg/dL (8.4-10.2); Carbon Dioxide 30 mmol/L (22-30); Creatinine 1 0.37 mg/dL (0.52-1.04); EST GLOMERULAR FILTRATION RATE > 60.0 ML/MIN; Glucose 224 mg/dL (74-106); Potassium 3.2 mmol/L (3.5-5.1); SGOT/AST 31 U/L (14-36); SGPT/ALT 26 U/L (0-35); SODIUM 134 mmol/L (137-145); Total Protein 6.8 g/dL (6.3-8.2)
[2022-04-26] MEDS: HUMALOG SQ PRN ×2 (08:30→12:39)
[2022-04-26] MEDS: PROTONIX 40 MG IV IV SCH (10:59)
[2022-04-26] MEDS: PLAVIX Tablet PO SCH (10:59)
[2022-04-26] MEDS: ZOLOFT 50 MG TABLET PO SCH (10:59)
[2022-04-26] MEDS: Acidophilus TABLET PO SCH (10:59)
[2022-04-26] MEDS: ENOXAPARIN SODIUM SQ SCH (11:00)
[2022-04-26 12:14] VITALS: BP 156/88; PULSE 89; O2SAT 94
--- NOTE | 2022-04-26 12:30 | PCM.DS ---
Discharge Summary Date of Admission: 04/25/22 07:50 Admitting Physician: ROSALINDA FIELDS Primary Care Provider: IDALMIS BRIGGS Allergies Allergies erythromycin base Allergy (Verified 04/05/22 12:44) Penicillins Allergy (Verified 04/05/22 11:27) Hospital Summary - Hospital Course Hospital Course: Pt is a 36 yo female pt of Dr. Briggs with HTN, DM, and PVD who was admitted through ER with hyperglycemia and abd pain. She had elevated lactate initially. WBC were 18,000 but today down to 11,000. She was given anti-emetics and IVF and today is feeling much better and would like to go home. If she tolerates po, can discharge to home this afternoon. She was on metformin on admission; discontinuing that due to her prior lactic acidosis. Will send her home on glimeperide and to f/u with Dr. Briggs. She had a mild hypokalemia of 3.2 which will be rechecked after lunch today. - Vitals & Intake/Output Vital Signs: Vital Signs Temperature 96.8 F 04/26/22 12:00 Pulse Rate 89 04/26/22 12:00 Respiratory Rate 16 04/26/22 12:00 Blood Pressure 156/88 04/26/22 12:00 O2 Sat by Pulse Oximetry 94 L 04/26/22 12:00 Intake & Output: Intake & Output 04/24/22 04/25/22 04/26/22 04/27/22 11:59 11:59 11:59 11:59 Intake Total 120 3124 Balance 120 3124 Weight 84.7 kg 84.9 kg - Lab Result Diagrams: 04/26/22 04:45 04/26/22 04:45 Lab Results-Last 24 Hrs: Lab Results-Last 24 Hours 04/25/22 04/25/22 04/26/22 Range/Units 15:55 21:02 04:45 WBC 11.7 H (4.0-10.5) x10^3/uL RBC 4.14 (4.1-5.4) x10^6/uL Hgb 12.1 (12.0-16.0) g/dL Hct 36.7 (35-47) % MCV 88.6 (78-100) fL MCH 29.2 (26-32) pg MCHC 33.0 (32-36) g/dL RDW 13.2 (11.5-14.0) % Plt Count 279 (150-450) x10^3/uL MPV 10.8 (7.5-11.0) fL Gran % 76.0 H (36.0-66.0) % Immature Gran % (Auto) 0.5 H (0.00-0.4) % Nucleat RBC Rel Count 0.0 (0.00-0.1) % Eos # (Auto) 0.08 (0-0.5) x10^3/uL Immature Gran # (Auto) 0.06 H (0.00-0.03) x10^3u/L Absolute Lymphs (auto) 1.87 (1.0-4.6) x10^3/uL Absolute Monos (auto) 0.75 (0.0-1.3) x10^3/uL Absolute Nucleated RBC 0.00 (0.00-0.01) x10^3u/L Lymphocytes % 16.1 L (24.0-44.0) % Monocytes % 6.4 (0.0-12.0) % Eosinophils % 0.7 (0.00-5.0) % Basophils % 0.3 (0.0-0.4) % Absolute Granulocytes 8.85 H (1.4-6.9) x10^3/uL Basophils # 0.04 (0-0.4) x10^3/uL Sodium (137-145) mmol/L Potassium (3.5-5.1) mmol/L Chloride (98-107) mmol/L Carbon Dioxide (22-30) mmol/L Anion Gap (5-15) MEQ/L BUN (7-17) mg/dL Creatinine (0.52-1.04) mg/dL Estimated GFR ML/MIN Glucose (74-106) mg/dL POC Glucometer 262 H 173 H (74 to 106) mg/dL Calcium (8.4-10.2) mg/dL Total Bilirubin (0.2-1.3) mg/dL AST (14-36) U/L ALT (0-35) U/L Alkaline Phosphatase (38-126) U/L Serum Total Protein (6.3-8.2) g/dL Albumin (3.5-5.0) g/dL 04/26/22 04/26/22 Range/Units 04:45 07:00 WBC (4.0-10.5) x10^3/uL RBC (4.1-5.4) x10^6/uL Hgb (12.0-16.0) g/dL Hct (35-47) % MCV (78-100) fL MCH (26-32) pg MCHC (32-36) g/dL RDW (11.5-14.0) % Plt Count (150-450) x10^3/uL MPV (7.5-11.0) fL Gran % (36.0-66.0) % Immature Gran % (Auto) (0.00-0.4) % Nucleat RBC Rel Count (0.00-0.1) % Eos # (Auto) (0-0.5) x10^3/uL Immature Gran # (Auto) (0.00-0.03) x10^3u/L Absolute Lymphs (auto) (1.0-4.6) x10^3/uL Absolute Monos (auto) (0.0-1.3) x10^3/uL Absolute Nucleated RBC (0.00-0.01) x10^3u/L Lymphocytes % (24.0-44.0) % Monocytes % (0.0-12.0) % Eosinophils % (0.00-5.0) % Basophils % (0.0-0.4) % Absolute Granulocytes (1.4-6.9) x10^3/uL Basophils # (0-0.4) x10^3/uL Sodium 134 L (137-145) mmol/L Potassium 3.2 L (3.5-5.1) mmol/L Chloride 99 (98-107) mmol/L Carbon Dioxide 30 (22-30) mmol/L Anion Gap 7.7 (5-15) MEQ/L BUN 5 L (7-17) mg/dL Creatinine 0.37 L (0.52-1.04) mg/dL Estimated GFR > 60.0 ML/MIN Glucose 224 H (74-106) mg/dL POC Glucometer 242 H (74 to 106) mg/dL Calcium 8.1 L (8.4-10.2) mg/dL Total Bilirubin 0.40 (0.2-1.3) mg/dL AST 31 (14-36) U/L ALT 26 (0-35) U/L Alkaline Phosphatase 78 (38-126) U/L Serum Total Protein 6.8 (6.3-8.2) g/dL Albumin 3.8 (3.5-5.0) g/dL Micro Results-Entire Visit: Accuchecks Date 04/26/22 Date 04/25/22 - Radiology Exams Ordered Rad Exams-Entire Visit: Radiology Procedures Category Date Time Status ABDOMEN AND PELVIS W/0 CONTRAS [CT] Stat Exams 04/25/22 02:17 Completed CHEST 1 VIEW (PORTABLE) Stat Exams 04/25/22 06:46 Completed CTA ABD/PEL W AND/OR W/O CONTR [CT] Stat Exams 04/25/22 04:41 Completed Discharge Exam General Appearance: no apparent distress, alert Neurologic Exam: oriented x 3, cooperative Eye Exam: eyes nml inspection Ears, Nose, Throat Exam: moist mucous membranes Neck Exam: normal inspection Respiratory Exam: normal breath sounds, lungs clear, No crackles/rales, No rhonchi, No wheezing Cardiovascular Exam: regular rate/rhythm, normal heart sounds, No murmur Gastrointestinal/Abdomen Exam: soft, normal bowel sounds, No tenderness, No distention, No mass, No guarding, No rebound Back Exam: normal inspection, No rash Extremity Exam: No pedal edema, No swelling Skin Exam: normal color, warm, dry, No rash Final Diagnosis/Problem List - Final Discharge Diagnosis/Problem (1) Abdominal pain Current Visit: Yes Status: Resolved Code(s): R10.9 - UNSPECIFIED ABDOMINAL PAIN (2) Hyperglycemia Current Visit: Yes Status: Chronic Assessment & Plan: improved. a1c >10. Code(s): R73.9 - HYPERGLYCEMIA, UNSPECIFIED (3) Lactic acid acidosis Current Visit: Yes Status: Resolved Code(s): E87.2 - ACIDOSIS (4) Nausea & vomiting Current Visit: Yes Status: Resolved Code(s): R11.2 - NAUSEA WITH VOMITING, UNSPECIFIED (5) PVD (peripheral vascular disease) Current Visit: Yes Status: Chronic Code(s): I73.9 - PERIPHERAL VASCULAR DISEASE, UNSPECIFIED - Discharge Disposition: Home, Self-Care Condition: Good Prescriptions: New Lactobacillus Acidophilus [Acidophilus TABLET] 1 tab PO TID tablet Glimepiride 4 mg [Amaryl 4 mg] 4 mg PO BID #60 tablet Lansoprazole 15 mg PO DAILY #14 tablet Continue Clopidogrel Bisulfate [PLAVIX Tablet] 75 mg PO DAILY Sertraline HCl [Zoloft] 100 mg PO DAILY Discontinued Metformin HCl 500 mg [Glucophage 500 MG] 1,000 mg PO BIDWM Instructions: Nausea and Vomiting, Adult (DC) Additional Instructions: GLUCOMETER AND SUPPLIES WERE SENT IN TO YOUR PHARMACY. CHECK YOUR BLOOD SUGAR DAILY AND RECORD. TAKE RECORDINGS TO YOUR FOLLOW UP APT. Follow up with: IDALMIS BRIGGS [Primary Care Provider] - 05/03/22 9:30 am Forms: Discharge Instructions
[2022-04-26 13:10] LABS: MAGNESIUM 1.8 mg/dL (1.6-2.3); Potassium 3.8 mmol/L (3.5-5.1)
== END 2022-04-26 14:08 | disposition home or self-care (01) ==
LOC: ED 23:31 → MED SURG 04-25 07:50
PROVIDERS: ADMIT Family Medicine; ATTEND Family Medicine
DX: R10.9 Unspecified abdominal pain (principal); E11.65 Type 2 diabetes mellitus with hyperglycemia; E87.2 Acidosis; R11.2 Nausea with vomiting, unspecified; I73.9 Peripheral vascular disease, unspecified; I10 Essential (primary) hypertension; R07.9 Chest pain, unspecified; Z79.899 Other long term (current) drug therapy; Z20.828 Contact with and (suspected) exposure to other viral communicable diseases; Z72.0 Tobacco use
CPT/HCPCS: 0241U; 36415; 71045; 74174; 74176; 80048; 80053; 80307; 81015; 82150; 82947; 83036; 83605; 83690; 83735; 84132; 84145; 84484; 84703; 85025; 93005; 96360; 96361; 96372; 96374; 96375; 99285; 93268; J1650; J1815; J1817; J1885; J2405; J2550; A9270-GY; G0378

== ENCOUNTER 2022-06-14 03:40 | Emergency (ER) | payer OTHER ==
[2022-06-14] MEDS ORDERED: Sodium Chloride 0.9% 1000 ML 1,000 ML IV STA ×2 (04:08→05:51)
[2022-06-14] MEDS ORDERED: Compazine 10 MG/2 ML IV ONE ×2 (04:08→05:41)
[2022-06-14] MEDS ORDERED: Sodium Chloride 0.9% 1000 ML 1,000 ML ONE ×2 (04:16→06:38)
[2022-06-14] MEDS ORDERED: Compazine 10 MG/2 ML ONE ×2 (04:16→05:50)
[2022-06-14 04:34] LABS: Absolute Neutrophil Ct (ANC) 12.55 x10^3/uL (1.4-6.9); Basophil (Absolute #) 0.06 x10^3/uL (0-0.4); Eosinophil % 0.7 % (0.00-5.0); Eosinophil (Absolute #) 0.11 x10^3/uL (0-0.5); Hematocrit 38.9 % (35-47); Hemoglobin 13.2 g/dL (12.0-16.0); Lymphocyte (Absolute #) 1.18 x10^3/uL (1.0-4.6); Mean Cell Volume 88.4 fL (78-100); Mean Corpuscular Hgb Concent. 33.9 g/dL (32-36); Mean Platelet Volume 10.8 fL (7.5-11.0); Monocyte (Absolute #) 0.77 x10^3/uL (0.0-1.3); Monocytes % 5.2 % (0.0-12.0); Neutrophil % 85.4 % (36.0-66.0); Platelet Count 331 x10^3/uL (150-450); Red Cell Distribution Width 12.6 % (11.5-14.0); White Blood Count 14.7 x10^3/uL (4.0-10.5)
[2022-06-14 04:42] LABS: Appearance CLEAR (CLEAR); Bilirubin NEGATIVE (NEGATIVE); Dipstick done @ ? MAIN LAB; Glucose >=1000 mg/dL (NEGATIVE); Ketones SMALL-15 (NEGATIVE); Nitrite NEGATIVE (NEGATIVE); Ph 8.5 (5-6); Protein,Urine Dip 100 (Negative); RBC NEGATIVE Ery/ul (0-5); Urobilinogen 0.2 mg/dL (0-1)
[2022-06-14 04:44] LABS: Epithelial Cells RARE /HPF (FEW); WBC 0-2 /HPF (0-5)
[2022-06-14 04:45] LABS: Bacteria NONE SEEN /HPF (NEGATIVE); RBC NONE SEEN /HPF (0-2); Urine Cultured Indicated? NO
[2022-06-14 04:48] LABS: ALBUMIN 4.7 g/dL (3.5-5.0); ALKALINE PHOSPHATASE 121 U/L (38-126); AMYLASE 55 U/L (30-110); BLOOD UREA NITROGEN 9 mg/dL (7-17); CHLORIDE 97 mmol/L (98-107); Calcium 9.9 mg/dL (8.4-10.2); Carbon Dioxide 25 mmol/L (22-30); Creatinine 1 0.41 mg/dL (0.52-1.04); EST GLOMERULAR FILTRATION RATE > 60.0 ML/MIN; Glucose 384 mg/dL (74-106); LIPASE 177 U/L (23-300); SGOT/AST 27 U/L (14-36); SGPT/ALT 25 U/L (0-35); SODIUM 132 mmol/L (137-145)
[2022-06-14] MEDS ORDERED: Hydromorphone 1 mg/ml Injection IV ONE (05:40)
[2022-06-14] MEDS ORDERED: Hydromorphone 1 mg/ml Injection ONE (05:49)
[2022-06-14 06:09] VITALS: PULSE 98; O2SAT 98
--- NOTE | 2022-06-14 06:09 | ERPHSYRPT ---
- History of Present Illness Historian: patient Exam Limitations: no limitations Patient Subjective Stated Complaint: pt c/o abd pain and vomiting. states her upper abd is hurting her. states unable to describe pain Triage Nursing Assessment: pt alert and oriented, answers questions with very short answers. laying in bed with blanket over her head. pt declines to descri be pain in her abd, just states "upper". pt arrive per ambulance and transfers to stretcher per self. respirations nonlabored. skin warm and dry. pt vomiting on arrival to er, small amts of yellow liquid. abd soft, pt reports tenderness to upper abd. Timing/Duration: day(s) Activities at Onset: none Quality: sharpness Abdominal Pain Onset Location: epigastric Severity of Pain-Max: moderate Severity of Pain-Current: moderate Modifying Factors: Improves With: vomiting Associated Symptoms: nausea, vomiting Previous symptoms: same symptoms as today, no recent treatment Hx Tetanus, Diphtheria Vaccination/Date Given: Yes Hx Influenza Vaccination/Date Given: No Hx Pneumococcal Vaccination/Date Given: No Immunizations Up to Date: Yes - History of Present Illness Time Seen by Provider: 06/14/22 05:00 Physician History: This is a 37-year-old diabetic white female patient of Dr. Griffin who has a history of anxiety and presents with upper abdominal pain associated vomiting. She had a cholecystectomy in the past. She is a current daily smoker of cigarettes. Patient has a history of DKA in the past. Patient has not had any diarrhea. She denies fevers. She has no known exposures to anyone with flulike symptoms. She denies chest pain. She is not short of breath. Patient has peripheral vascular disease with a right lower leg bypass graft and a left lower leg stent placed. (SHERRY STYLES) Allergies/Adverse Reactions: erythromycin base Allergy (Verified 06/14/22 03:41) Penicillins Allergy (Verified 06/14/22 03:41) Home Medications: Clopidogrel Bisulfate [PLAVIX Tablet] 75 mg PO DAILY 04/05/22 [History] Sertraline HCl [Zoloft] 100 mg PO DAILY 04/05/22 [History] Travel Risk - International Travel Have you traveled outside of the country in past 3 weeks: No - Coronavirus Screening Are you exhibiting any of the following symptoms?: No Close contact with a COVID-19 positive Pt in past 14-21 Days: No - Vaccine Status Have you recieved a Covid-19 vaccination: No - Review of Systems Constitutional: No Symptoms Eyes: No Symptoms Ears, Nose, & Throat: No Symptoms Respiratory: No Symptoms Cardiac: No Symptoms Abdominal/Gastrointestinal: Abdominal Pain (Epigastric bilateral upper quadrants), Nausea, Vomiting, Appetite Changes, No Diarrhea Genitourinary Symptoms: No Symptoms Musculoskeletal: No Symptoms Skin: No Symptoms Neurological: No Symptoms Psychological: No Symptoms Endocrine: No Symptoms Hematologic/Lymphatic: No Symptoms Immunological/Allergic: No Symptoms All Other Systems: Reviewed and Negative - Past Medical History Pertinent Past Medical History: Yes Cardiac History: Other Endocrine Medical History: Diabetes Type II GI Medical History: Irritable Bowel Psycho-Social History: Anxiety, Depression Other Medical History: PAD - Past Surgical History Past Surgical History: Yes Gastrointestinal: Cholecystectomy - Social History Smoking Status: Former smoker How long have you smoked: 22 years Exposure to second hand smoke: No Drug Use: marijuana Patient Lives Alone: No - Female History Hx Last Menstrual Period: 2 weeks Hx Now: Yes - Physical Exam General Appearance: mild distress, alert, anxiety Eye Exam: PERRL/EOMI, eyes nml inspection Ears, Nose, Throat Exam: normal ENT inspection, dry mucous membranes Neck Exam: normal inspection, non-tender, supple, full range of motion Respiratory Exam: normal breath sounds, lungs clear, respiratory distress, airway intact, No chest tenderness Cardiovascular Exam: regular rate/rhythm, normal heart sounds, normal peripheral pulses Gastrointestinal/Abdomen Exam: soft, normal bowel sounds, tenderness (Fuhs tenderness to palpation), guarding (Mild diffuse tenderness to palpation), No rebound Pelvic Exam: not done Rectal Exam: not done Back Exam: normal inspection, normal range of motion, No CVA tenderness, No vertebral tenderness Extremity Exam: normal inspection, normal range of motion, pelvis stable Neurologic Exam: alert, oriented x 3, cooperative, felt strip finisher II-XII nml as tested, normal mood/affect, nml cerebellar function, nml station & gait, sensation nml Skin Exam: normal color, warm, dry Lymphatic Exam: No adenopathy SpO2 Interpretation: normal SpO2: 98 O2 Delivery: Room Air - Nursing Vital Signs Nursing Vital Signs: Initial Vital Signs Temperature 96.5 F 06/14/22 03:44 Pulse Rate 87 06/14/22 03:44 Respiratory Rate 16 06/14/22 03:44 Blood Pressure 211/95 06/14/22 03:44 O2 Sat by Pulse Oximetry 98 06/14/22 03:44 Pain Scale Pain Intensity 5 - Course Nursing assessment & vital signs reviewed: Yes Ordered Tests: Active Orders 24 hr Category Date Time Status ABDOMEN AND PELVIS W/0 CONTRAS [CT] Stat Exams 06/14/22 04:11 Taken AMYLASE Stat Lab 06/14/22 04:20 Completed CBC W DIFF Stat Lab 06/14/22 04:20 Completed CMP Stat Lab 06/14/22 04:20 Completed HCG QUALITATIVE,SERUM Stat Lab 06/14/22 04:20 Completed LIPASE Stat Lab 06/14/22 04:20 Completed Lactic Acid Stat Lab 06/14/22 04:27 Completed Lactic Acid Stat Lab 06/14/22 06:34 Received POCT GLUCOSE Stat Lab 06/14/22 03:49 Completed POCT GLUCOSE Stat Lab 06/14/22 06:41 Completed TROPONIN Q4H Lab 06/14/22 04:20 Completed TROPONIN Q4H Lab 06/14/22 09:45 Ordered TROPONIN Q4H Lab 06/14/22 13:45 Ordered TROPONIN Q4H Lab 06/14/22 17:45 Ordered TROPONIN Q4H Lab 06/14/22 21:45 Ordered UA W/RFX CULTURE Stat Lab 06/14/22 04:30 Completed Medication Summary Discontinued Medications Generic Name Dose Route Start Last Admin Trade Name Freq PRN Reason Stop Dose Admin Hydromorphone HCl 1 mg 06/14/22 05:40 06/14/22 05:51 Hydromorphone 1 Mg/1ml Inj 1 Mg/Ml Syringe IV 06/14/22 05:41 1 mg STAT ONE Administration Hydromorphone HCl Confirm 06/14/22 05:49 Hydromorphone 1 Mg/1ml Inj 1 Mg/Ml Syringe Administered 06/14/22 05:50 Dose 1 mg .ROUTE .STK-MED ONE Sodium Chloride 1,000 mls @ 999 mls/hr 06/14/22 04:08 06/14/22 06:56 Sodium Chloride 0.9% 1000 Ml IV 06/14/22 05:08 Infused .Q1H1M STA Infusion Sodium Chloride Confirm 06/14/22 04:16 Sodium Chloride 0.9% 1000 Ml Administered 06/14/22 04:17 Dose 1,000 mls @ ud .ROUTE .STK-MED ONE Sodium Chloride 1,000 mls @ 999 mls/hr 06/14/22 05:51 06/14/22 06:39 Sodium Chloride 0.9% 1000 Ml IV 06/14/22 06:51 999 mls/hr .Q1H1M STA Administration Sodium Chloride Confirm 06/14/22 06:38 Sodium Chloride 0.9% 1000 Ml Administered 06/14/22 06:39 Dose 1,000 mls @ ud .ROUTE .STK-MED ONE Insulin Human Regular 8 unit 06/14/22 06:46 06/14/22 06:52 Insulin Regular, Human 1 Unit IV 06/14/22 06:47 8 unit STAT ONE Administration Insulin Human Regular Confirm 06/14/22 06:50 Insulin Regular, Human 1 Unit Administered 06/14/22 06:51 Dose 8 unit .ROUTE .STK-[facility] ONE Prochlorperazine Edisylate 5 mg 06/14/22 04:08 06/14/22 04:19 Prochlorperazine Edisylate 10 Mg/2 Ml Vial IV 06/14/22 04:09 5 mg STAT ONE Administration Prochlorperazine Edisylate Confirm 06/14/22 04:16 Prochlorperazine Edisylate 10 Mg/2 Ml Vial Administered 06/14/22 04:17 Dose 10 mg .ROUTE .STK-MED ONE Prochlorperazine Edisylate 5 mg 06/14/22 05:41 06/14/22 05:51 Prochlorperazine Edisylate 10 Mg/2 Ml Vial IV 06/14/22 05:42 5 mg STAT ONE Administration Prochlorperazine Edisylate Confirm 06/14/22 05:50 Prochlorperazine Edisylate 10 Mg/2 Ml Vial Administered 06/14/22 05:51 Dose 10 mg .ROUTE .STK-MED ONE Lab/Rad Data: Laboratory Result Diagrams 06/14/22 04:20 06/14/22 04:20 Laboratory Results 06/14/22 06/14/22 06/14/22 Range/Units 06:41 04:30 04:27 WBC (4.0-10.5) x10^3/uL RBC (4.1-5.4) x10^6/uL Hgb (12.0-16.0) g/dL Hct (35-47) % MCV (78-100) fL MCH (26-32) pg MCHC (32-36) g/dL RDW (11.5-14.0) % Plt Count (150-450) x10^3/uL MPV (7.5-11.0) fL Gran % (36.0-66.0) % Immature Gran % (Auto) (0.00-0.4) % Nucleat RBC Rel Count (0.00-0.1) % Eos # (Auto) (0-0.5) x10^3/uL Immature Gran # (Auto) (0.00-0.03) x10^3u/L Absolute Lymphs (auto) (1.0-4.6) x10^3/uL Absolute Monos (auto) (0.0-1.3) x10^3/uL Absolute Nucleated RBC (0.00-0.01) x10^3u/L Lymphocytes % (24.0-44.0) % Monocytes % (0.0-12.0) % Eosinophils % (0.00-5.0) % Basophils % (0.0-0.4) % Absolute Granulocytes (1.4-6.9) x10^3/uL Basophils # (0-0.4) x10^3/uL Sodium (137-145) mmol/L Potassium (3.5-5.1) mmol/L Chloride (98-107) mmol/L Carbon Dioxide (22-30) mmol/L Anion Gap (5-15) MEQ/L BUN (7-17) mg/dL Creatinine (0.52-1.04) mg/dL Estimated GFR ML/MIN Glucose (74-106) mg/dL POC Glucometer 364 H (74 to 106) mg/dL Lactic Acid 3.5 H (0.4-2.0) Calcium (8.4-10.2) mg/dL Total Bilirubin (0.2-1.3) mg/dL AST (14-36) U/L ALT (0-35) U/L Alkaline Phosphatase (38-126) U/L Troponin I (0.000-0.034) ng/mL Serum Total Protein (6.3-8.2) g/dL Albumin (3.5-5.0) g/dL Amylase (30-110) U/L Lipase (23-300) U/L Serum , Qual (Negative) Urinalys Dipstick Clnc MAIN LAB Urine Color LT.YELLOW (YELLOW) Urine Appearance CLEAR (CLEAR) Urine pH 8.5 A (5-6) Ur Specific [place] 1.020 (1.005-1.025) POC Urine Protein Conf 100 A (Negative) Urine Ketones SMALL-15 A (NEGATIVE) Urine Nitrite NEGATIVE (NEGATIVE) Urine Bilirubin NEGATIVE (NEGATIVE) Urine Urobilinogen 0.2 (0-1) mg/dL Urine Leukocytes NEGATIVE (NEGATIVE) Urine WBC (Auto) 0-2 (0-5) /HPF Urine RBC (Auto) NONE SEEN (0-2) /HPF U Epithel Cells (Auto) RARE (FEW) /HPF Urine Bacteria (Auto) NONE SEEN (NEGATIVE) /HPF Urine RBC NEGATIVE (0-5) Adrien/ul Ur Culture Indicated? NO Urine Glucose >=1000 A (NEGATIVE) mg/dL 06/14/22 06/14/22 06/14/22 Range/Units 04:20 04:20 04:20 WBC 14.7 H (4.0-10.5) x10^3/uL RBC 4.40 (4.1-5.4) x10^6/uL Hgb 13.2 (12.0-16.0) g/dL Hct 38.9 (35-47) % MCV 88.4 (78-100) fL MCH 30.0 (26-32) pg MCHC 33.9 (32-36) g/dL RDW 12.6 (11.5-14.0) % Plt Count 331 (150-450) x10^3/uL MPV 10.8 (7.5-11.0) fL Gran % 85.4 H (36.0-66.0) % Immature Gran % (Auto) 0.3 (0.00-0.4) % Nucleat RBC Rel Count 0.0 (0.00-0.1) % Eos # (Auto) 0.11 (0-0.5) x10^3/uL Immature Gran # (Auto) 0.05 H (0.00-0.03) x10^3u/L Absolute Lymphs (auto) 1.18 (1.0-4.6) x10^3/uL Absolute Monos (auto) 0.77 (0.0-1.3) x10^3/uL Absolute Nucleated RBC 0.00 (0.00-0.01) x10^3u/L Lymphocytes % 8.0 L (24.0-44.0) % Monocytes % 5.2 (0.0-12.0) % Eosinophils % 0.7 (0.00-5.0) % Basophils % 0.4 (0.0-0.4) % Absolute Granulocytes 12.55 H (1.4-6.9) x10^3/uL Basophils # 0.06 (0-0.4) x10^3/uL Sodium 132 L (137-145) mmol/L Potassium 4.0 (3.5-5.1) mmol/L Chloride 97 L (98-107) mmol/L Carbon Dioxide 25 (22-30) mmol/L Anion Gap 14.0 (5-15) MEQ/L BUN 9 (7-17) mg/dL Creatinine 0.41 L (0.52-1.04) mg/dL Estimated GFR > 60.0 ML/MIN Glucose 384 H (74-106) mg/dL POC Glucometer (74 to 106) mg/dL Lactic Acid (0.4-2.0) Calcium 9.9 (8.4-10.2) mg/dL Total Bilirubin 0.50 (0.2-1.3) mg/dL AST 27 (14-36) U/L ALT 25 (0-35) U/L Alkaline Phosphatase 121 (38-126) U/L Troponin I < 0.012 (0.000-0.034) ng/mL Serum Total Protein 8.0 (6.3-8.2) g/dL Albumin 4.7 (3.5-5.0) g/dL Amylase 55 (30-110) U/L Lipase 177 (23-300) U/L Serum , Qual (Negative) Urinalys Dipstick Clnc Urine Color (YELLOW) Urine Appearance (CLEAR) Urine pH (5-6) Ur Specific [place] (1.005-1.025) POC Urine Protein Conf (Negative) Urine Ketones (NEGATIVE) Urine Nitrite (NEGATIVE) Urine Bilirubin (NEGATIVE) Urine Urobilinogen (0-1) mg/dL Urine Leukocytes (NEGATIVE) Urine WBC (Auto) (0-5) /HPF Urine RBC (Auto) (0-2) /HPF U Epithel Cells (Auto) (FEW) /HPF Urine Bacteria (Auto) (NEGATIVE) /HPF Urine RBC (0-5) Adrien/ul Ur Culture Indicated? Urine Glucose (NEGATIVE) mg/dL 06/14/22 06/14/22 Range/Units 04:20 03:49 WBC (4.0-10.5) x10^3/uL RBC (4.1-5.4) x10^6/uL Hgb (12.0-16.0) g/dL Hct (35-47) % MCV (78-100) fL MCH (26-32) pg MCHC (32-36) g/dL RDW (11.5-14.0) % Plt Count (150-450) x10^3/uL MPV (7.5-11.0) fL Gran % (36.0-66.0) % Immature Gran % (Auto) (0.00-0.4) % Nucleat RBC Rel Count (0.00-0.1) % Eos # (Auto) (0-0.5) x10^3/uL Immature Gran # (Auto) (0.00-0.03) x10^3u/L Absolute Lymphs (auto) (1.0-4.6) x10^3/uL Absolute Monos (auto) (0.0-1.3) x10^3/uL Absolute Nucleated RBC (0.00-0.01) x10^3u/L Lymphocytes % (24.0-44.0) % Monocytes % (0.0-12.0) % Eosinophils % (0.00-5.0) % Basophils % (0.0-0.4) % Absolute Granulocytes (1.4-6.9) x10^3/uL Basophils # (0-0.4) x10^3/uL Sodium (137-145) mmol/L Potassium (3.5-5.1) mmol/L Chloride (98-107) mmol/L Carbon Dioxide (22-30) mmol/L Anion Gap (5-15) MEQ/L BUN (7-17) mg/dL Creatinine (0.52-1.04) mg/dL Estimated GFR ML/MIN Glucose (74-106) mg/dL POC Glucometer 362 H (74 to 106) mg/dL Lactic Acid (0.4-2.0) Calcium (8.4-10.2) mg/dL Total Bilirubin (0.2-1.3) mg/dL AST (14-36) U/L ALT (0-35) U/L Alkaline Phosphatase (38-126) U/L Troponin I (0.000-0.034) ng/mL Serum Total Protein (6.3-8.2) g/dL Albumin (3.5-5.0) g/dL Amylase (30-110) U/L Lipase (23-300) U/L Serum , Qual NEGATIVE (Negative) Urinalys Dipstick Clnc Urine Color (YELLOW) Urine Appearance (CLEAR) Urine pH (5-6) Ur Specific [place] (1.005-1.025) POC Urine Protein Conf (Negative) Urine Ketones (NEGATIVE) Urine Nitrite (NEGATIVE) Urine Bilirubin (NEGATIVE) Urine Urobilinogen (0-1) mg/dL Urine Leukocytes (NEGATIVE) Urine WBC (Auto) (0-5) /HPF Urine RBC (Auto) (0-2) /HPF U Epithel Cells (Auto) (FEW) /HPF Urine Bacteria (Auto) (NEGATIVE) /HPF Urine RBC (0-5) Adrien/ul Ur Culture Indicated? Urine Glucose (NEGATIVE) mg/dL - Progress Progress: improved, pain not gone completely Counseled pt/family regarding: lab results, diagnosis, rad results - Progress Progress Note: 06/14/22 06:41 Cat scan of the abdomen pelvis without contrast shows no acute intra-abdominal or intrapelvic abnormality. 06/14/22 06:53 Medical decision making: This patient may have very mild DKA. She states she is feels significantly better. She does not have any chest pain. She does not have any abdominal pain and her nausea has completely resolved with the management we have provided her. She does not have a urinary tract infection. We are providing her with a second liter of intravenous fluid and we will reassess her. Her CO2 is normal and her anion gap are normal. She has only a trace amount of ketones in her urine. She wants to go home. I think this is reasonable based on her results of the lab and how she is feeling clinically. Patient care being transferred to Dr. Coombs at shift change. He will follow-up with her once she has completed her second liter of fluid and will make final disposition. (SHERRY STYLES) 06/14/22 07:53 Patient is checked out to me at shift change from Dr. Styles with pending second bolus of fluids and has received insulin. Patient on my evaluation is feeling much better. Patient reported that she has not been taking her glyburide for almost 1 week. Patient is counseled about medication compliance. She is not in DKA. No abdominal tenderness on my evaluation. She is being discharged as per Dr. Styles plan. (NITESH COOMBS) - Departure Departure Disposition: Home Critical Care Time: No - Departure Clinical Impression: Abdominal pain, Vomiting, Hyperglycemia Condition: Stable Referrals: IDALMIS GRIFFIN [Primary Care Provider] - Follow up/PCP as directed Additional Instructions: Drink plenty of clear liquids before advancing your diet. Monitor your blood sugar closely. Follow-up with your primary care physician for further evaluation management. Prescriptions: Ondansetron ODT 4 MG [Zofran Odt 4 mg] 4 mg PO Q6H PRN PRN #10 tablet PRN Reason: Vomiting
[2022-06-14] MEDS ORDERED: HUMULIN R IV ONE (06:46)
[2022-06-14] MEDS ORDERED: HUMULIN R ONE (06:50)
[2022-06-14 07:06] VITALS: BP 179/100
--- NOTE | 2022-06-14 09:04 | XRAY ---
Indication: Abdomen pain, nausea, and vomiting. Multiple contiguous axial images obtained through the abdomen and pelvis without contrast. Comparison: April 25, 2022 Lung bases clear. Heart not enlarged. Again mild distal esophageal circumferential wall thickening concerning for esophagitis. Noncontrasted stomach and bowel loops nonobstructed again with normal appendix. Again fatty liver and cholecystectomy. No free fluid/air. Remaining pancreas, spleen, adrenal glands, kidneys, ureters, bladder, uterus, and aorta appear unremarkable for noncontrast exam. Osseous structures intact again with minimal/mild degenerative changes throughout the thoracolumbar spine and both hips. No ventral or inguinal hernias. Impression: 1. Again distal esophageal circumferential wall thickening. Rule out esophagitis. 2. Again fatty liver and chronic bony findings. 3. Remaining CT abdomen/pelvis without contrast exam is negative. Comment: Preliminary interpretation made by C. No critical discrepancy.
== END 2022-06-14 08:15 | disposition home or self-care (01) ==
LOC: ED 03:40
DX: R11.2 Nausea with vomiting, unspecified (principal); R10.10 Upper abdominal pain, unspecified; E11.65 Type 2 diabetes mellitus with hyperglycemia; Z72.0 Tobacco use; Z79.02 Long term (current) use of antithrombotics/antiplatelets; Z79.899 Other long term (current) drug therapy; Z28.310 Unvaccinated for COVID-19
CPT/HCPCS: 36000; 36415; 74176; 80053; 81015; 82150; 82947; 83605; 83690; 84484; 84703; 85025; 96360; 96361; 96374; 96375; 96376; 99284; J1170; J1815

== ENCOUNTER 2023-01-01 06:32 | Day surgery (SDC) | payer OTHER ==
[2023-01-01 06:45] LABS: HCG URINE TEST NEGATIVE (NEGATIVE)
[2023-01-01] MEDS ORDERED: Lactated Ringers 1,000 ML IV SCH (07:00)
[2023-01-01] MEDS ORDERED: Versed 2 MG/2 ML Injection ONE (07:44)
[2023-01-01] MEDS ORDERED: DIPRIVAN 200 MG/20 ML IV ONE ×5 (07:44→08:26)
[2023-01-01] MEDS ORDERED: Xylocaine-Mpf 2% 5 Ml Vial ONE (07:44)
[2023-01-01 09:22] VITALS: O2SAT 98
--- NOTE | 2023-01-01 09:31 | OP ---
SURGERY DATE/TIME: 01/01/2023 0750 PREOPERATIVE DIAGNOSES: 1) Alternating constipation with diarrhea. 2) Family history of father with colon cancer at age 50. POSTOPERATIVE DIAGNOSIS: Small sigmoid colon polyp otherwise normal exam. PROCEDURE: Colonoscopy with cold forceps biopsy. SURGEON: Dr. Briggs. ANESTHESIA: MAC. Medications given by anesthesia department. HISTORY: The patient is a 37-year-old white female presenting now with complaints of alternating constipation and diarrhea. She also reports that her father had colon cancer that he of that he developed at age 50. The patient is felt the need to have endoscopic evaluation. She was appraised of the risks of the procedure including the risk of perforation, phlebitis, untoward reaction to medication, bleeding and missed lesions. The patient verbalized her understanding and desired to have the procedure performed. DESCRIPTION OF PROCEDURE: The patient was given the medications by the anesthesia department. She had continuous pulse oximetry, ECG monitoring and intermittent blood pressure monitoring during the examination. She was placed in the left lateral decubitus position. A digital rectal examination was performed and revealed normal anal sphincter tone and no masses. The flexible Olympus pediatric colonoscope was used to intubate the rectum. A view of the colon was developed sequentially to the cecum. There was noted to be a large amount of liquid fluid that was suctioned out of the colon. She had one small polyp in the sigmoid colon which was biopsied using cold biopsy forceps. Otherwise no mucosal lesions encountered. The scope was removed from the patient who tolerated the procedure well and was sent back to OP recovery in good condition. The prep was noted to be fair.
[2023-01-01 09:36] VITALS: BP 156/97; PULSE 92
== END 2023-01-01 09:52 | disposition home or self-care (01) ==
LOC: SDC 06:32
PROVIDERS: ATTEND Family Medicine
DX: K59.00 Constipation, unspecified (principal); R19.7 Diarrhea, unspecified; Z80.0 Family history of malignant neoplasm of digestive organs; K63.5 Polyp of colon; E11.9 Type 2 diabetes mellitus without complications
CPT/HCPCS: 81025; 82947; J2250; J2704

== ENCOUNTER 2023-07-23 00:05 | Observation (INO) | payer OTHER ==
[2023-07-23] MEDS ORDERED: Sodium Chloride 0.9% 1000 ML 1,000 ML IV STA ×2 (00:24→03:11)
[2023-07-23] MEDS ORDERED: PROTONIX 40 MG IV IV ONE ×2 (00:24→00:29)
[2023-07-23] MEDS ORDERED: Zofran 4 MG/2 ML VIAL IV ONE ×2 (00:24→01:51)
[2023-07-23] MEDS ORDERED: MORPHINE SULFATE 4 MG INJ IV ONE (00:24)
[2023-07-23] MEDS ORDERED: MORPHINE SULFATE 4 MG INJ ONE (00:29)
[2023-07-23] MEDS ORDERED: Sodium Chloride 0.9% 1000 ML 1,000 ML ONE ×2 (00:29→03:13)
[2023-07-23] MEDS ORDERED: Zofran 4 MG/2 ML VIAL ONE ×2 (00:29→01:56)
--- NOTE | 2023-07-23 01:05 | ERPHSYRPT ---
- History of Present Illness Time Seen by Provider: 07/23/23 00:10 Historian: patient Exam Limitations: no limitations Patient Subjective Stated Complaint: pt states that she woke up 07/21/23 am and was nauseated with vomiting, diarrhea, and abdominal/ bilat lower back pain. reports has vomited approx 15 times in last 24hrs and emesis is clear yellow green liquid and she has had approx 3 episodes in the last 24hrs and stool is brown/ yellow liquid. denies blood in vomit or stool. reports has also had NPC, chills, and sweats but hasn't checked her temperature. Triage Nursing Assessment: pt ambulated into room 8 independently with slow steady gait after using restroom in unsuccessful attempt at providing a urine specimen for lab testing. pt is alert and oriented times three, able to move all extremities, able to speak in complete sentences, and with resp even and unlabored. no edema noted. abd obese, soft, tender to touch, with positive bowel sounds in all quadrants. pt vomited approx 200ml of brown liquid during triage assessment. skin cool, slightly clammy, garsia, and intact. pt denies sob, difficulty breathing, cp, difficulty breathing, sob, lightheadedness, dizziness, or other ill feelings. pt is unable to describe constant pain to generalized umbilical area and bilat lower back but rates it 7/10. denies difficulty with urination. Physician History: 38-year-old female with history of peripheral vascular disease presented in the ER with chief complaint of abdominal pain since yesterday morning with associated nausea and multiple episodes of nonprojectile, nonbilious vomiting without hematemesis. She is also having loose stool today 3-4 episodes without hematochezia or dark stool. Patient reports moderate intensity dull aching to cramping pain in the periumbilical area without any significant aggravating or relieving factors. Reports no fever or chills. Feels weak fatigued tired and dehydrated. Unable to hold much down since yesterday morning. Allergies/Adverse Reactions: amoxicillin Allergy (Severe, Verified 07/23/23 00:13) breathing throat erythromycin base Allergy (Severe, Verified 07/23/23 00:13) breathing/ throat Penicillins Allergy (Severe, Verified 07/23/23 00:13) breathing throat Home Medications: Clopidogrel Bisulfate [PLAVIX Tablet] 75 mg PO DAILY 04/05/22 [History] Sertraline HCl [Zoloft] 100 mg PO DAILY 04/05/22 [History] Hx Tetanus, Diphtheria Vaccination/Date Given: No Hx Influenza Vaccination/Date Given: No Hx Pneumococcal Vaccination/Date Given: No Immunizations Up to Date: No Travel Risk - International Travel Have you traveled outside of the country in past 3 weeks: No - Coronavirus Screening Are you exhibiting any of the following symptoms?: Yes Symptoms: Cough: New Onset, Vomiting/Diarrhea Close contact with a COVID-19 positive Pt in past 14-21 Days: No - Vaccine Status Have you recieved a Covid-19 vaccination: No - Review of Systems Constitutional: Fatigue, Weakness Eyes: No Symptoms Ears, Nose, & Throat: No Symptoms Respiratory: No Symptoms Cardiac: No Symptoms Abdominal/Gastrointestinal: Abdominal Pain, Nausea, Vomiting, Diarrhea Genitourinary Symptoms: No Symptoms Musculoskeletal: Back Pain Skin: No Symptoms Neurological: No Symptoms Endocrine: No Symptoms Hematologic/Lymphatic: No Symptoms Immunological/Allergic: No Symptoms - Past Medical History Pertinent Past Medical History: Yes Neurological History: No Pertinent History ENT History: No Pertinent History Cardiac History: Other Respiratory History: No Pertinent History Endocrine Medical History: Diabetes Type II Musculoskeletal History: No Pertinent History GI Medical History: Irritable Bowel History: No Pertinent History Psycho-Social History: Anxiety, Depression Female Reproductive Disorders: No Pertinent History Other Medical History: PAD - Past Surgical History Past Surgical History: Yes Neuro Surgical History: No Pertinent History Cardiac: No Pertinent History Respiratory: No Pertinent History Gastrointestinal: Cholecystectomy Genitourinary: No Pertinent History Musculoskeletal: No Pertinent History Female Surgical History: No Pertinent History Other Surgical History: stents in legs. - Social History Smoking Status: Current some day smoker How long have you smoked: 17yo Exposure to second hand smoke: No Drug Use: marijuana Patient Lives Alone: No - Female History Hx Last Menstrual Period: 07/16/23 Hx Now: (unkn) - Nursing Vital Signs Nursing Vital Signs: Initial Vital Signs Temperature 95.5 F 07/23/23 00:15 Pulse Rate 92 H 07/23/23 00:15 Respiratory Rate 20 07/23/23 00:15 Blood Pressure 215/137 07/23/23 00:15 O2 Sat by Pulse Oximetry 100 07/23/23 00:15 Pain Scale Pain Intensity 0 - Physical Exam General Appearance: no apparent distress, alert Eye Exam: PERRL/EOMI Ears, Nose, Throat Exam: normal ENT inspection, pharynx normal Neck Exam: normal inspection, non-tender, supple, full range of motion Respiratory Exam: normal breath sounds, lungs clear Cardiovascular Exam: regular rate/rhythm, normal heart sounds Gastrointestinal/Abdomen Exam: soft, normal bowel sounds, tenderness (Generalized more in the periumbilical area), No guarding Extremity Exam: normal inspection, normal range of motion Neurologic Exam: alert, oriented x 3, cooperative Skin Exam: normal color SpO2 Interpretation: normal SpO2: 100 O2 Delivery: Room Air Ordered Tests: Active Orders 24 hr Category Date Time Status IV Insertion STAT Care 07/23/23 00:24 Active NPO (ED) STAT Care 07/23/23 00:24 Active POCT Glucose Check STAT Care 07/23/23 03:08 Active ABDOMEN AND PELVIS W/0 CONTRAS [CT] Stat Exams 07/23/23 00:25 Completed CBC W DIFF Stat Lab 07/23/23 01:00 Completed CMP Stat Lab 07/23/23 01:00 Completed CULTURE,URINE Stat Lab 07/23/23 01:54 Received HCG QUALITATIVE, URINE Stat Lab 07/23/23 01:54 Completed LIPASE Stat Lab 07/23/23 01:00 Completed Lactic Acid Stat Lab 07/23/23 01:30 Completed Lactic Acid Stat Lab 07/23/23 03:34 Received POCT GLUCOSE Stat Lab 07/23/23 02:59 Completed UA W/RFX UR CULTURE Stat Lab 07/23/23 01:54 Completed Medication Summary Generic Name Dose Route Start Last Admin Trade Name Freq PRN Reason Stop Dose Admin Sodium Chloride 1,000 mls @ 999 mls/hr 07/23/23 03:11 07/23/23 03:26 Sodium Chloride 0.9% 1000 Ml IV 07/23/23 04:11 999 mls/hr .Q1H1M STA Administration Discontinued Medications Generic Name Dose Route Start Last Admin Trade Name Freq PRN Reason Stop Dose Admin Sodium Chloride 1,000 mls @ 999 mls/hr 07/23/23 00:24 07/23/23 01:44 Sodium Chloride 0.9% 1000 Ml IV 07/23/23 01:24 Infused .Q1H1M STA Infusion Sodium Chloride Confirm 07/23/23 00:29 Sodium Chloride 0.9% 1000 Ml Administered 07/23/23 00:30 Dose 1,000 mls @ ud .ROUTE .STK-MED ONE Sodium Chloride Confirm 07/23/23 03:13 Sodium Chloride 0.9% 1000 Ml Administered 07/23/23 03:14 Dose 1,000 mls @ ud .ROUTE .STK-MED ONE Insulin Human Regular 8 unit 07/23/23 03:06 07/23/23 03:26 Insulin Regular, Human 1 Unit SQ 07/23/23 03:07 8 unit STAT ONE Administration Insulin Human Regular Confirm 07/23/23 03:13 Insulin Regular, Human 1 Unit Administered 07/23/23 03:14 Dose 8 unit .ROUTE .STK-MED ONE Labetalol HCl 10 mg 07/23/23 02:23 07/23/23 03:00 Labetalol Hcl 20 Mg/4 Ml Disp.Syringe IV 07/23/23 02:24 10 mg STAT ONE Administration Labetalol HCl Confirm 07/23/23 02:56 Labetalol Hcl 20 Mg/4 Ml Disp.Syringe Administered 07/23/23 02:57 Dose 20 mg IV .STK-MED ONE Morphine Sulfate 4 mg 07/23/23 00:24 07/23/23 00:35 Morphine Sulfate 4 Mg/Ml Injection IV 07/23/23 00:25 4 mg STAT ONE Administration Morphine Sulfate Confirm 07/23/23 00:29 Morphine Sulfate 4 Mg/Ml Injection Administered 07/23/23 00:30 Dose 4 mg .ROUTE .STK-MED ONE Ondansetron HCl 4 mg 07/23/23 00:24 07/23/23 00:35 Ondansetron Hcl 4 Mg/2 Ml Vial IV 07/23/23 00:25 4 mg STAT ONE Administration Ondansetron HCl Confirm 07/23/23 00:29 Ondansetron Hcl 4 Mg/2 Ml Vial Administered 07/23/23 00:30 Dose 4 mg .ROUTE .STK-MED ONE Ondansetron HCl 4 mg 07/23/23 01:51 07/23/23 01:58 Ondansetron Hcl 4 Mg/2 Ml Vial IV 07/23/23 01:52 4 mg STAT ONE Administration Ondansetron HCl Confirm 07/23/23 01:56 Ondansetron Hcl 4 Mg/2 Ml Vial Administered 07/23/23 01:57 Dose 4 mg .ROUTE .STK-MED ONE Oseltamivir Phosphate 75 mg 07/23/23 02:08 07/23/23 02:13 Oseltamivir 75 Mg Cap PO 07/23/23 02:09 75 mg STAT ONE Administration Oseltamivir Phosphate Confirm 07/23/23 02:11 Oseltamivir 75 Mg Cap Administered 07/23/23 02:12 Dose 75 mg PO .STK-MED ONE Pantoprazole Sodium 40 mg 07/23/23 00:24 07/23/23 00:35 Pantoprazole 40 Mg Vial IV 07/23/23 00:25 40 mg STAT ONE Administration Pantoprazole Sodium Confirm 07/23/23 00:29 Pantoprazole 40 Mg Vial Administered 07/23/23 00:30 Dose 40 mg IV .STK-MED ONE Prochlorperazine Edisylate 10 mg 07/23/23 03:32 07/23/23 03:34 Prochlorperazine Edisylate 10 Mg/2 Ml Vial IV 07/23/23 03:33 10 mg STAT ONE Administration Prochlorperazine Edisylate Confirm 07/23/23 03:33 Prochlorperazine Edisylate 10 Mg/2 Ml Vial Administered 07/23/23 03:34 Dose 10 mg .ROUTE .STK-MED ONE Lab/Rad Data: Laboratory Result Diagrams 07/23/23 01:00 07/23/23 01:00 Laboratory Results 07/23/23 07/23/23 07/23/23 Range/Units 02:59 01:54 01:54 WBC (4.0-10.5) x10^3/uL RBC (4.1-5.4) x10^6/uL Hgb (12.0-16.0) g/dL Hct (35-47) % MCV (78-100) fL MCH (26-32) pg MCHC (32-36) g/dL RDW (11.5-14.0) % Plt Count (150-450) x10^3/uL MPV (7.5-11.0) fL Gran % (36.0-66.0) % Immature Gran % (Auto) (0.00-0.4) % Nucleat RBC Rel Count (0.00-0.1) % Eos # (Auto) (0-0.5) x10^3/uL Immature Gran # (Auto) (0.00-0.03) x10^3u/L Absolute Lymphs (auto) (1.0-4.6) x10^3/uL Absolute Monos (auto) (0.0-1.3) x10^3/uL Absolute Nucleated RBC (0.00-0.01) x10^3u/L Lymphocytes % (24.0-44.0) % Monocytes % (0.0-12.0) % Eosinophils % (0.00-5.0) % Basophils % (0.0-0.4) % Absolute Granulocytes (1.4-6.9) x10^3/uL Basophils # (0-0.4) x10^3/uL Sodium (137-145) mmol/L Potassium (3.5-5.1) mmol/L Chloride (98-107) mmol/L Carbon Dioxide (22-30) mmol/L Anion Gap (5-15) MEQ/L BUN (7-17) mg/dL Creatinine (0.52-1.04) mg/dL Estimated GFR ML/MIN Glucose (74-106) mg/dL POC Glucometer 398 H (74 to 106) mg/dL Lactic Acid (0.4-2.0) Calcium (8.4-10.2) mg/dL Total Bilirubin (0.2-1.3) mg/dL AST (14-36) U/L ALT (0-35) U/L Alkaline Phosphatase (38-126) U/L Serum Total Protein (6.3-8.2) g/dL Albumin (3.5-5.0) g/dL Lipase (23-300) U/L Urine Color Yellow (Yellow) Urine Appearance Clear (Clear) Urine pH 7.0 (4.6-8.0) Ur Specific [place] 1.025 (1.005-1.030) Urine Protein 300 A (Negative) Urine Glucose (UA) 500 A (Negative) mg/dL Urine Ketones 80 A (Negative) Urine Blood Small A (Negative) Urine Nitrite Negative (Negative) Urine Bilirubin Negative (Negative) Urine Urobilinogen 0.2 (0.2) mg/dL Ur Leukocyte Esterase Negative (Negative) U Hyaline Cast (Auto) NONE SEEN (0-2) /LPF Urine Microscopic RBC 3-5 (0-5) /HPF Urine Microscopic WBC 0-2 (0-5) /HPF Ur Epithelial Cells None Seen (None Seen) /HPF Urine Bacteria None Seen (None Seen) /HPF Urine Culture Reflexed YES (NO) Urine HCG, Qual NEGATIVE (NEGATIVE) Influenza Type A Ag (NEGATIVE) Influenza Type B Ag (NEGATIVE) RSV (PCR) (NEGATIVE) SARS-CoV-2 (PCR) (NEGATIVE) 07/23/23 07/23/23 07/23/23 Range/Units 01:30 01:00 01:00 WBC (4.0-10.5) x10^3/uL RBC (4.1-5.4) x10^6/uL Hgb (12.0-16.0) g/dL Hct (35-47) % MCV (78-100) fL MCH (26-32) pg MCHC (32-36) g/dL RDW (11.5-14.0) % Plt Count (150-450) x10^3/uL MPV (7.5-11.0) fL Gran % (36.0-66.0) % Immature Gran % (Auto) (0.00-0.4) % Nucleat RBC Rel Count (0.00-0.1) % Eos # (Auto) (0-0.5) x10^3/uL Immature Gran # (Auto) (0.00-0.03) x10^3u/L Absolute Lymphs (auto) (1.0-4.6) x10^3/uL Absolute Monos (auto) (0.0-1.3) x10^3/uL Absolute Nucleated RBC (0.00-0.01) x10^3u/L Lymphocytes % (24.0-44.0) % Monocytes % (0.0-12.0) % Eosinophils % (0.00-5.0) % Basophils % (0.0-0.4) % Absolute Granulocytes (1.4-6.9) x10^3/uL Basophils # (0-0.4) x10^3/uL Sodium 130 L (137-145) mmol/L Potassium 3.7 (3.5-5.1) mmol/L Chloride 95 L (98-107) mmol/L Carbon Dioxide 23 (22-30) mmol/L Anion Gap 15.6 H (5-15) MEQ/L BUN 7 (7-17) mg/dL Creatinine 0.36 L (0.52-1.04) mg/dL Estimated GFR 132.4 ML/MIN Glucose 420 H (74-106) mg/dL POC Glucometer (74 to 106) mg/dL Lactic Acid 2.4 H (0.4-2.0) Calcium 9.4 (8.4-10.2) mg/dL Total Bilirubin 0.50 (0.2-1.3) mg/dL AST 39 H (14-36) U/L ALT 30 (0-35) U/L Alkaline Phosphatase 116 (38-126) U/L Serum Total Protein 8.4 H (6.3-8.2) g/dL Albumin 4.6 (3.5-5.0) g/dL Lipase 25 (23-300) U/L Urine Color (Yellow) Urine Appearance (Clear) Urine pH (4.6-8.0) Ur Specific [place] (1.005-1.030) Urine Protein (Negative) Urine Glucose (UA) (Negative) mg/dL Urine Ketones (Negative) Urine Blood (Negative) Urine Nitrite (Negative) Urine Bilirubin (Negative) Urine Urobilinogen (0.2) mg/dL Ur Leukocyte Esterase (Negative) U Hyaline Cast (Auto) (0-2) /LPF Urine Microscopic RBC (0-5) /HPF Urine Microscopic WBC (0-5) /HPF Ur Epithelial Cells (None Seen) /HPF Urine Bacteria (None Seen) /HPF Urine Culture Reflexed (NO) Urine HCG, Qual (NEGATIVE) Influenza Type A Ag POSITIVE (NEGATIVE) Influenza Type B Ag NEGATIVE (NEGATIVE) RSV (PCR) NEGATIVE (NEGATIVE) SARS-CoV-2 (PCR) NEGATIVE (NEGATIVE) 07/23/23 Range/Units 01:00 WBC 11.4 H (4.0-10.5) x10^3/uL RBC 4.68 (4.1-5.4) x10^6/uL Hgb 13.4 (12.0-16.0) g/dL Hct 41.4 (35-47) % MCV 88.5 (78-100) fL MCH 28.6 (26-32) pg MCHC 32.4 (32-36) g/dL RDW 12.8 (11.5-14.0) % Plt Count 252 (150-450) x10^3/uL MPV 10.9 (7.5-11.0) fL Gran % 93.1 H (36.0-66.0) % Immature Gran % (Auto) 0.5 H (0.00-0.4) % Nucleat RBC Rel Count 0.0 (0.00-0.1) % Eos # (Auto) 0 (0-0.5) x10^3/uL Immature Gran # (Auto) 0.06 H (0.00-0.03) x10^3u/L Absolute Lymphs (auto) 0.32 L (1.0-4.6) x10^3/uL Absolute Monos (auto) 0.38 (0.0-1.3) x10^3/uL Absolute Nucleated RBC 0.00 (0.00-0.01) x10^3u/L Lymphocytes % 2.8 L (24.0-44.0) % Monocytes % 3.3 (0.0-12.0) % Eosinophils % 0.0 (0.00-5.0) % Basophils % 0.3 (0.0-0.4) % Absolute Granulocytes 10.57 H (1.4-6.9) x10^3/uL Basophils # 0.03 (0-0.4) x10^3/uL Sodium (137-145) mmol/L Potassium (3.5-5.1) mmol/L Chloride (98-107) mmol/L Carbon Dioxide (22-30) mmol/L Anion Gap (5-15) MEQ/L BUN (7-17) mg/dL Creatinine (0.52-1.04) mg/dL Estimated GFR ML/MIN Glucose (74-106) mg/dL POC Glucometer (74 to 106) mg/dL Lactic Acid (0.4-2.0) Calcium (8.4-10.2) mg/dL Total Bilirubin (0.2-1.3) mg/dL AST (14-36) U/L ALT (0-35) U/L Alkaline Phosphatase (38-126) U/L Serum Total Protein (6.3-8.2) g/dL Albumin (3.5-5.0) g/dL Lipase (23-300) U/L Urine Color (Yellow) Urine Appearance (Clear) Urine pH (4.6-8.0) Ur Specific [place] (1.005-1.030) Urine Protein (Negative) Urine Glucose (UA) (Negative) mg/dL Urine Ketones (Negative) Urine Blood (Negative) Urine Nitrite (Negative) Urine Bilirubin (Negative) Urine Urobilinogen (0.2) mg/dL Ur Leukocyte Esterase (Negative) U Hyaline Cast (Auto) (0-2) /LPF Urine Microscopic RBC (0-5) /HPF Urine Microscopic WBC (0-5) /HPF Ur Epithelial Cells (None Seen) /HPF Urine Bacteria (None Seen) /HPF Urine Culture Reflexed (NO) Urine HCG, Qual (NEGATIVE) Influenza Type A Ag (NEGATIVE) Influenza Type B Ag (NEGATIVE) RSV (PCR) (NEGATIVE) SARS-CoV-2 (PCR) (NEGATIVE) - Progress Progress: improved, re-examined Progress Note: 07/23/23 03:36 38-year-old female with history of peripheral vascular disease presented in the ER with chief complaint of abdominal pain since yesterday morning with associated nausea and multiple episodes of nonprojectile, nonbilious vomiting without hematemesis. She is also having loose stool today 3-4 episodes without hematochezia or dark stool. Patient reports moderate intensity dull aching to cramping pain in the periumbilical area without any significant aggravating or relieving factors. Reports no fever or chills. Feels weak fatigued tired and dehydrated. Unable to hold much down since yesterday morning. She is given fluids and symptomatic treatment, on reevaluation her abdominal pain is better but still having nausea and multiple episodes of vomiting while in the ER. She is given multiple doses of Zofran and also Compazine. Workup showed white count of 11, chemistries with a glucose of 429, gap 15 and a bicarb of 23. Sodium of 130. Patient is not in DKA or HHS. Has a lactate of 2.4. No UTI. Has positive and influenza A but negative COVID and flu. Given a dose of Tamiflu in here. I have obtained CT abdomen pelvis which is negative for any acute abdominal pelvic findings. I believe patient has viral gastroenteritis. Patient blood pressure was constantly in 200s, given labetalol. I believe pat ient will benefit with observation admission with fluids and symptomatic treatment for nausea vomiting and monitoring of hyperglycemia and hypertension. Discussed with , reviewed history, workup and agreed with admission. I have discussed the results of workup with patient and plan for admission which she understands and agrees. Discussed with : Penelope Will see patient in: hospital (observation) Counseled pt/family regarding: lab results, diagnosis, rad results Medical Desision Making - Discussion of managment Care discussed with:: hospitalist Reviewed:: Test results Agreed on:: Treatment plan Will see patient: in hospital - Diagnostic Testing Diagnostic test were ordered, analyzed, and reviewed by me: Yes Radiological Interpretation: Reviewed by me, Teleradiologist Report - Risk of complications The pt has a high risk of morbidity or mortality based on: Decision regarding hospitilization or escalation of hosp level of care - Departure Departure Disposition: Home Clinical Impression: Viral gastroenteritis, Influenza A, Hyperglycemia, Uncontrolled hypertension Condition: Stable Critical Care Time: No Referrals: IDALMIS GRIFFIN [Primary Care Provider] - Follow up/PCP as directed
[2023-07-23 01:17] LABS: Absolute Neutrophil Ct (ANC) 10.57 x10^3/uL (1.4-6.9); BASOPHIL % 0.3 % (0.0-0.4); Basophil (Absolute #) 0.03 x10^3/uL (0-0.4); Eosinophil (Absolute #) 0 x10^3/uL (0-0.5); Hematocrit 41.4 % (35-47); Hemoglobin 13.4 g/dL (12.0-16.0); IMMATURE GRAN # 0.06 x10^3u/L (0.00-0.03); IMMATURE GRAN % 0.5 % (0.00-0.4); Lymphocyte (Absolute #) 0.32 x10^3/uL (1.0-4.6); Lymphocytes % 2.8 % (24.0-44.0); Mean Cell Volume 88.5 fL (78-100); Mean Corpuscular Hemoglobin 28.6 pg (26-32); Mean Corpuscular Hgb Concent. 32.4 g/dL (32-36); Mean Platelet Volume 10.9 fL (7.5-11.0); Monocyte (Absolute #) 0.38 x10^3/uL (0.0-1.3); Monocytes % 3.3 % (0.0-12.0); Neutrophil % 93.1 % (36.0-66.0); Platelet Count 252 x10^3/uL (150-450); Red Blood Count 4.68 x10^6/uL (4.1-5.4); Red Cell Distribution Width 12.8 % (11.5-14.0); White Blood Count 11.4 x10^3/uL (4.0-10.5)
[2023-07-23 01:31] LABS: ALBUMIN 4.6 g/dL (3.5-5.0); ANION GAP 15.6 MEQ/L (5-15); BILIRUBIN,TOTAL 0.5 mg/dL (0.2-1.3); Calcium 9.4 mg/dL (8.4-10.2); Creatinine 1 0.36 mg/dL (0.52-1.04); EST GLOMERULAR FILTRATION RATE 132.4 ML/MIN; Potassium 3.7 mmol/L (3.5-5.1); Total Protein 8.4 g/dL (6.3-8.2)
[2023-07-23 01:53] LABS: INFLUENZA B NEGATIVE (NEGATIVE); RESPIRATORY SYNCTIAL VIRUS NEGATIVE (NEGATIVE); SARS-CoV-2 Xpert Express NEGATIVE (NEGATIVE)
[2023-07-23 01:58] LABS: HCG URINE TEST NEGATIVE (NEGATIVE)
[2023-07-23 02:00] LABS: INFLUENZA A POSITIVE (NEGATIVE)
[2023-07-23] MEDS ORDERED: Tamiflu 75MG Capsule PO ONE ×2 (02:08→02:11)
[2023-07-23 02:09] LABS: Bacteria None Seen /HPF (None Seen); Epithelial Cells None Seen /HPF (None Seen); Hyaline Casts NONE SEEN /LPF (0-2); WBC 0-2 /HPF (0-5)
[2023-07-23 02:10] LABS: Appearance Clear (Clear)
[2023-07-23 02:11] LABS: ADD URINE CULTURE? YES (NO); Bilirubin Negative (Negative); Blood Small (Negative); Glucose, Urine 500 mg/dL (Negative); Ketones 80 (Negative); Leukocyte Esterase Negative (Negative); Nitrite Negative (Negative); Protein,Urine Dip 300 (Negative); Specific Gravity 1.025 (1.005-1.030); Urobilinogen 0.2 mg/dL (0.2)
[2023-07-23] MEDS ORDERED: TRANDATE 20 MG/4 ML SYRINGE IV ONE ×2 (02:23→02:56)
[2023-07-23] MEDS ORDERED: HUMULIN R SQ ONE (03:06)
[2023-07-23] MEDS ORDERED: HUMULIN R ONE (03:13)
--- NOTE | 2023-07-23 03:21 | XRAY ---
CLINICAL HISTORY:abd pain COMPARISON:To the previous study dated: 06/14/2022. TECHNIQUE:A CT scan of the abdomen and pelvis was performed with axial images as well as sagittal and coronal reconstruction images without intravenous contrast. Images were sent to PACs for interpretation. CTDI: 9.10 mGy, DLP: 506.69 mGy-cm. FINDINGS: Scanned lung bases are unremarkable. The liver is normal in size showing diffuse parenchymal hypodensity, no focal lesions by non-contrast criteria. No intrahepatic or extrahepatic bile duct dilation. The gall bladder is non-visualized. Unremarkable appearing pancreas. No pancreatic mass or ductal dilatation is seen. Unremarkable appearing spleen. The adrenal glands are normal. The kidneys appear unremarkable with no cysts, calculi, masses or hydronephrosis. Normal appearance of the urinary bladder. The ureters are normal with no stones. The unremarkable appearance of the uterus and adnexa. The small bowel and large bowel are of average diameter. The appendix is seen and is of average diameter with no surrounding inflammatory changes. Unremarkable abdominal aorta without specific evidence of aneurysm or dissection. IVC is normal. No ascites. No suspiciously enlarged lymphadenopathy. Spondylodenerative changes of L5-S1 showing disc space narrowing. Also noted are spondylodegenerative changes of the lower thoracic spine. IMPRESSION: 1. Fatty liver changes. 2. Prior cholecystectomy. 3. No acute inflammatory changes. Electronically Signed by: Sohail Ashraf MD. (07/23/2023 03:16:46 EST)
[2023-07-23] MEDS ORDERED: Compazine 10 MG/2 ML IV ONE (03:32)
[2023-07-23] MEDS ORDERED: Compazine 10 MG/2 ML ONE (03:33)
[2023-07-23 04:04] LABS: Slide Review 1 YES
[2023-07-23] MEDS ORDERED: APRESOLINE 20 MG/ML INJ IV ONE (04:13)
[2023-07-23] MEDS ORDERED: APRESOLINE 20 MG/ML INJ ONE (04:14)
[2023-07-23] MEDS ORDERED: Zofran 4 MG/2 ML VIAL IV PRN (04:36)
[2023-07-23] MEDS ORDERED: HUMALOG SQ PRN ×2 (04:36→11:45)
[2023-07-23] MEDS ORDERED: TRANDATE 100 MG/20 ML MDV FOR DRIP IV PRN (04:41)
--- NOTE | 2023-07-23 04:50 | PCM.HP ---
History of Present Illness - Chief Complaint Chief Complaint: Nausea, vomiting and diarrhea History of Present Illness: is a 38 year old female with hx of PAD on plavix, DMII and depression here with c/o intractable nause, vomiting and diarrhea sincec July 21. She states she had vomited 15x since. Diarrhea is non-bloody. Abd pain is generalized and cramping in nature. Denies fever, chills, rigor. Work-up in ER found influenza A to be positive. And since she remains nauseated and vomiting, she is being admitted for this and supportive care. ER gave IVF boluses. I am seeing the pt via telemedicine. She is resting, feeling better now - Review of Systems Constitutional: No Symptoms Eyes: No Symptoms Ears, Nose, & Throat: No Symptoms Respiratory: No Symptoms Cardiac: No Symptoms Abdominal/Gastrointestinal: Abdominal Pain, Nausea, Vomiting, Diarrhea Genitourinary Symptoms: No Symptoms Musculoskeletal: No Symptoms Skin: No Symptoms Neurological: No Symptoms Psychological: No Symptoms Endocrine: No Symptoms Hematologic/Lymphatic: No Symptoms Medications & Allergies Home Medications: Home Medication List Clopidogrel Bisulfate [PLAVIX Tablet] 75 mg PO DAILY 04/05/22 [History Confirmed 07/23/23] Sertraline HCl [Zoloft] 100 mg PO DAILY 04/05/22 [History Confirmed 07/23/23] Glimepiride 4 mg [Amaryl 4 mg] 4 mg PO BID #60 tablet 04/26/22 [Rx Confirmed 07/23/23] Allergies/Adverse Reactions: Allergies Allergy/AdvReac Type Severity Reaction Status Date / Time amoxicillin Allergy Severe breathing Verified 07/23/23 00:13 throat erythromycin base Allergy Severe breathing/ Verified 07/23/23 00:13 throat Penicillins Allergy Severe breathing Verified 07/23/23 00:13 throat - Past Medical History Past Medical History: Yes Neurological History: No Pertinent History ENT History: No Pertinent History Cardiac History: Other Respiratory History: No Pertinent History Endocrine Medical History: Diabetes Type II Musculoskelatal History: No Pertinent History GI Medical History: Irritable Bowel History: No Pertinent History Pyscho-Social History: Anxiety, Depression Reproductive Disorders: No Pertinent History Comment: PAD - Female History Hx Last Menstrual Period: 07/16/23 Are you now?: (unkn) - Past Surgical History Past Surgical History: Yes Neuro Surgical History: No Pertinent History Cardiac History: No Pertinent History Respiratory Surgery: No Pertinent History GI Surgical History: Cholecystectomy Genitourinary Surgical Hx: No Pertinent History Musculskeletal Surgical Hx: No Pertinent History Female Surgical History: No Pertinent History Other Surgical History: stents in legs. - Social History Smoking Status: Current some day smoker How long have you smoked: 17yo Exposure to second hand smoke: No Alcohol: None Drug Use: marijuana Significant Family History: no pertinent family hx - Physical Exam Vital Signs: Vital Signs - 24 hr Temp Pulse Resp BP BP Pulse Ox 07/23/23 04:26 107 H 196/109 99 07/23/23 04:24 105 H 20 210/116 99 07/23/23 03:41 100 07/23/23 02:00 95 H 20 206/106 95 07/23/23 01:30 88 20 200/100 97 07/23/23 01:00 91 H 18 192/106 96 07/23/23 00:30 85 22 199/100 100 07/23/23 00:15 95.5 F 92 H 20 215/137 100 General Appearance: mild distress, alert Neurologic Exam: alert, oriented x 3, cooperative Eye Exam: PERRL/EOMI, eyes nml inspection Ears, Nose, Throat Exam: normal ENT inspection, dry mucous membranes Neck Exam: normal inspection, supple, full range of motion Respiratory Exam: normal breath sounds, lungs clear Cardiovascular Exam: regular rate/rhythm, normal heart sounds Gastrointestinal/Abdomen Exam: soft, normal bowel sounds, tenderness Pelvic Exam: deferred Rectal Exam: deferred Extremity Exam: normal inspection, normal range of motion Skin Exam: normal color, warm, dry Results - Labs Lab/Micro Results: Lab Results-Last 24 Hours 07/23/23 07/23/23 07/23/23 Range/Units 01:00 01:00 01:00 WBC 11.4 H (4.0-10.5) x10^3/uL RBC 4.68 (4.1-5.4) x10^6/uL Hgb 13.4 (12.0-16.0) g/dL Hct 41.4 (35-47) % MCV 88.5 (78-100) fL MCH 28.6 (26-32) pg MCHC 32.4 (32-36) g/dL RDW 12.8 (11.5-14.0) % Plt Count 252 (150-450) x10^3/uL MPV 10.9 (7.5-11.0) fL Gran % 93.1 H (36.0-66.0) % Immature Gran % (Auto) 0.5 H (0.00-0.4) % Nucleat RBC Rel Count 0.0 (0.00-0.1) % Eos # (Auto) 0 (0-0.5) x10^3/uL Immature Gran # (Auto) 0.06 H (0.00-0.03) x10^3u/L Absolute Lymphs (auto) 0.32 L (1.0-4.6) x10^3/uL Absolute Monos (auto) 0.38 (0.0-1.3) x10^3/uL Absolute Nucleated RBC 0.00 (0.00-0.01) x10^3u/L Lymphocytes % 2.8 L (24.0-44.0) % Monocytes % 3.3 (0.0-12.0) % Eosinophils % 0.0 (0.00-5.0) % Basophils % 0.3 (0.0-0.4) % Absolute Granulocytes 10.57 H (1.4-6.9) x10^3/uL Basophils # 0.03 (0-0.4) x10^3/uL Sodium 130 L (137-145) mmol/L Potassium 3.7 (3.5-5.1) mmol/L Chloride 95 L (98-107) mmol/L Carbon Dioxide 23 (22-30) mmol/L Anion Gap 15.6 H (5-15) MEQ/L BUN 7 (7-17) mg/dL Creatinine 0.36 L (0.52-1.04) mg/dL Estimated GFR 132.4 ML/MIN Glucose 420 H (74-106) mg/dL POC Glucometer (74 to 106) mg/dL Lactic Acid (0.4-2.0) Calcium 9.4 (8.4-10.2) mg/dL Total Bilirubin 0.50 (0.2-1.3) mg/dL AST 39 H (14-36) U/L ALT 30 (0-35) U/L Alkaline Phosphatase 116 (38-126) U/L Serum Total Protein 8.4 H (6.3-8.2) g/dL Albumin 4.6 (3.5-5.0) g/dL Lipase 25 (23-300) U/L Urine Color (Yellow) Urine Appearance (Clear) Urine pH (4.6-8.0) Ur Specific [place] (1.005-1.030) Urine Protein (Negative) Urine Glucose (UA) (Negative) mg/dL Urine Ketones (Negative) Urine Blood (Negative) Urine Nitrite (Negative) Urine Bilirubin (Negative) Urine Urobilinogen (0.2) mg/dL Ur Leukocyte Esterase (Negative) U Hyaline Cast (Auto) (0-2) /LPF Urine Microscopic RBC (0-5) /HPF Urine Microscopic WBC (0-5) /HPF Ur Epithelial Cells (None Seen) /HPF Urine Bacteria (None Seen) /HPF Urine Culture Reflexed (NO) Urine HCG, Qual (NEGATIVE) Influenza Type A Ag POSITIVE (NEGATIVE) Influenza Type B Ag NEGATIVE (NEGATIVE) RSV (PCR) NEGATIVE (NEGATIVE) SARS-CoV-2 (PCR) NEGATIVE (NEGATIVE) Slides for Path Review YES 07/23/23 07/23/23 07/23/23 Range/Units 01:30 01:54 01:54 WBC (4.0-10.5) x10^3/uL RBC (4.1-5.4) x10^6/uL Hgb (12.0-16.0) g/dL Hct (35-47) % MCV (78-100) fL MCH (26-32) pg MCHC (32-36) g/dL RDW (11.5-14.0) % Plt Count (150-450) x10^3/uL MPV (7.5-11.0) fL Gran % (36.0-66.0) % Immature Gran % (Auto) (0.00-0.4) % Nucleat RBC Rel Count (0.00-0.1) % Eos # (Auto) (0-0.5) x10^3/uL Immature Gran # (Auto) (0.00-0.03) x10^3u/L Absolute Lymphs (auto) (1.0-4.6) x10^3/uL Absolute Monos (auto) (0.0-1.3) x10^3/uL Absolute Nucleated RBC (0.00-0.01) x10^3u/L Lymphocytes % (24.0-44.0) % Monocytes % (0.0-12.0) % Eosinophils % (0.00-5.0) % Basophils % (0.0-0.4) % Absolute Granulocytes (1.4-6.9) x10^3/uL Basophils # (0-0.4) x10^3/uL Sodium (137-145) mmol/L Potassium (3.5-5.1) mmol/L Chloride (98-107) mmol/L Carbon Dioxide (22-30) mmol/L Anion Gap (5-15) MEQ/L BUN (7-17) mg/dL Creatinine (0.52-1.04) mg/dL Estimated GFR ML/MIN Glucose (74-106) mg/dL POC Glucometer (74 to 106) mg/dL Lactic Acid 2.4 H (0.4-2.0) Calcium (8.4-10.2) mg/dL Total Bilirubin (0.2-1.3) mg/dL AST (14-36) U/L ALT (0-35) U/L Alkaline Phosphatase (38-126) U/L Serum Total Protein (6.3-8.2) g/dL Albumin (3.5-5.0) g/dL Lipase (23-300) U/L Urine Color Yellow (Yellow) Urine Appearance Clear (Clear) Urine pH 7.0 (4.6-8.0) Ur Specific [place] 1.025 (1.005-1.030) Urine Protein 300 A (Negative) Urine Glucose (UA) 500 A (Negative) mg/dL Urine Ketones 80 A (Negative) Urine Blood Small A (Negative) Urine Nitrite Negative (Negative) Urine Bilirubin Negative (Negative) Urine Urobilinogen 0.2 (0.2) mg/dL Ur Leukocyte Esterase Negative (Negative) U Hyaline Cast (Auto) NONE SEEN (0-2) /LPF Urine Microscopic RBC 3-5 (0-5) /HPF Urine Microscopic WBC 0-2 (0-5) /HPF Ur Epithelial Cells None Seen (None Seen) /HPF Urine Bacteria None Seen (None Seen) /HPF Urine Culture Reflexed YES (NO) Urine HCG, Qual NEGATIVE (NEGATIVE) Influenza Type A Ag (NEGATIVE) Influenza Type B Ag (NEGATIVE) RSV (PCR) (NEGATIVE) SARS-CoV-2 (PCR) (NEGATIVE) Slides for Path Review 07/23/23 Range/Units 02:59 WBC (4.0-10.5) x10^3/uL RBC (4.1-5.4) x10^6/uL Hgb (12.0-16.0) g/dL Hct (35-47) % MCV (78-100) fL MCH (26-32) pg MCHC (32-36) g/dL RDW (11.5-14.0) % Plt Count (150-450) x10^3/uL MPV (7.5-11.0) fL Gran % (36.0-66.0) % Immature Gran % (Auto) (0.00-0.4) % Nucleat RBC Rel Count (0.00-0.1) % Eos # (Auto) (0-0.5) x10^3/uL Immature Gran # (Auto) (0.00-0.03) x10^3u/L Absolute Lymphs (auto) (1.0-4.6) x10^3/uL Absolute Monos (auto) (0.0-1.3) x10^3/uL Absolute Nucleated RBC (0.00-0.01) x10^3u/L Lymphocytes % (24.0-44.0) % Monocytes % (0.0-12.0) % Eosinophils % (0.00-5.0) % Basophils % (0.0-0.4) % Absolute Granulocytes (1.4-6.9) x10^3/uL Basophils # (0-0.4) x10^3/uL Sodium (137-145) mmol/L Potassium (3.5-5.1) mmol/L Chloride (98-107) mmol/L Carbon Dioxide (22-30) mmol/L Anion Gap (5-15) MEQ/L BUN (7-17) mg/dL Creatinine (0.52-1.04) mg/dL Estimated GFR ML/MIN Glucose (74-106) mg/dL POC Glucometer 398 H (74 to 106) mg/dL Lactic Acid (0.4-2.0) Calcium (8.4-10.2) mg/dL Total Bilirubin (0.2-1.3) mg/dL AST (14-36) U/L ALT (0-35) U/L Alkaline Phosphatase (38-126) U/L Serum Total Protein (6.3-8.2) g/dL Albumin (3.5-5.0) g/dL Lipase (23-300) U/L Urine Color (Yellow) Urine Appearance (Clear) Urine pH (4.6-8.0) Ur Specific [place] (1.005-1.030) Urine Protein (Negative) Urine Glucose (UA) (Negative) mg/dL Urine Ketones (Negative) Urine Blood (Negative) Urine Nitrite (Negative) Urine Bilirubin (Negative) Urine Urobilinogen (0.2) mg/dL Ur Leukocyte Esterase (Negative) U Hyaline Cast (Auto) (0-2) /LPF Urine Microscopic RBC (0-5) /HPF Urine Microscopic WBC (0-5) /HPF Ur Epithelial Cells (None Seen) /HPF Urine Bacteria (None Seen) /HPF Urine Culture Reflexed (NO) Urine HCG, Qual (NEGATIVE) Influenza Type A Ag (NEGATIVE) Influenza Type B Ag (NEGATIVE) RSV (PCR) (NEGATIVE) SARS-CoV-2 (PCR) (NEGATIVE) Slides for Path Review Accuchecks Date 07/23/23 Time 03:08 - Radiology Impressions Radiology Exams & Impressions: Radiology Procedures Category Date Time Status ABDOMEN AND PELVIS W/0 CONTRAS [CT] Stat Exams 07/23/23 00:25 Completed - Other Procedures and Tests Respiratory Therapy 07/23/23 03:56 Respiratory Therapy Consult ONCE Assessment/Plan (1) Influenza A Current Visit: Yes Status: Acute Assessment & Plan: Flu A positive. Tamiflu and supportive measures for her various symptoms. Advised vaccination once she gets better Code(s): J10.1 - FLU DUE TO OTH IDENT INFLUENZA VIRUS W OTH RESP MANIFEST (2) Viral gastroenteritis Current Visit: Yes Status: Acute Assessment & Plan: Due to the Flu. N/V/D - IVF, supportive measures. Should expect improvement with treatment and time Code(s): A08.4 - VIRAL INTESTINAL INFECTION, UNSPECIFIED (3) Uncontrolled hypertension Current Visit: Yes Status: Acute Assessment & Plan: Likely due to stress and being sick. She is not on BP med at home previously. Adding Labetalol 20mg Q6hr prn SBP > 160. May need monitoring at home or PCP for formal diagnosis. Code(s): I10 - ESSENTIAL (PRIMARY) HYPERTENSION (4) Hyponatremia Current Visit: Yes Status: Acute Assessment & Plan: Na 130, likely from GI loss due to N/V/D. NS boluses given, will start NS at 100ml/hr. Monitor. Do not expect emergent neurological issue at this level, no do we have to correct slowly as its is acute and mildly low Code(s): E87.1 - HYPO-OSMOLALITY AND HYPONATREMIA (5) Hyperglycemia Current Visit: Yes Status: Chronic Assessment & Plan: She is a DMII with home glimiperide. Will resume this and add SSI and accucheck. BS 400s but no sign of DKA or hyperosmolar hyperglycemia. IVF boluses given, and continuing NS at 100ml/hr. will check A1C Code(s): R73.9 - HYPERGLYCEMIA, UNSPECIFIED (6) PVD (peripheral vascular disease) Current Visit: No Status: Chronic Assessment & Plan: Stable, continue home plavix Code(s): I73.9 - PERIPHERAL VASCULAR DISEASE, UNSPECIFIED (7) Nausea & vomiting Current Visit: No Status: Resolved Code(s): R11.2 - NAUSEA WITH VOMITING, UNSPECIFIED Telemedicine Encounter - Telemedicine Encounter Telemedicine Encounter: The entirety of this encounter was performed via Telemedicine" The pt gave me verbal consent to have this telemedicine visit
[2023-07-23] MEDS: Sodium Chloride 0.9% 1000 ML 1,000 ML IV SCH ×3 (05:03→23:39)
--- NOTE | 2023-07-23 05:20 | PCM.NOTE ---
HPI: is a 38 year old female with hx of PAD on plavix, DMII and depression here with c/o intractable nause, vomiting and diarrhea sincec July 21. She states she had vomited 15x since. Diarrhea is non-bloody. Abd pain is generalized and cramping in nature. Denies fever, chills, rigor. Work-up in ER found influenza A to be positive. And since she remains nauseated and vomiting, she is being admitted for this and supportive care. ER gave IVF boluses. 07/23: Met with patient bedside. Endorses much improvement overnight. No further nausea/vomiting/diarrhea. Discussed elevated blood glucose levels and A1C of 10.24. Will dc oral diabetic medications and start patient on long/short acting insulin regimen. Discussed the importance of good glycemic control. Will get g lucometer, strips, lancets for home use. Will set up with OP endocrinology/pcp on discharge. (1) Influenza A Current Visit: Yes Status: Acute Assessment & Plan: Flu A positive. Tamiflu and supportive measures for her various symptoms. Advised vaccination once she gets better Code(s): J10.1 - FLU DUE TO OTH IDENT INFLUENZA VIRUS W OTH RESP MANIFEST (2) Viral gastroenteritis Current Visit: Yes Status: Acute Assessment & Plan: Due to the Flu. N/V/D - IVF, supportive measures. Should expect improvement with treatment and time Code(s): A08.4 - VIRAL INTESTINAL INFECTION, UNSPECIFIED (3) Uncontrolled hypertension Current Visit: Yes Status: Acute Assessment & Plan: Likely due to stress and being sick. She is not on BP med at home previously. Adding Labetalol 20mg Q6hr prn SBP > 160. May need monitoring at home or PCP for formal diagnosis. Code(s): I10 - ESSENTIAL (PRIMARY) HYPERTENSION (4) Hyponatremia Current Visit: Yes Status: Acute Assessment & Plan: Na 130, likely from GI loss due to N/V/D. NS boluses given, will start NS at 100ml/hr. Monitor. Do not expect emergent neurological issue at this level, no do we have to correct slowly as its is acute and mildly low Code(s): E87.1 - HYPO-OSMOLALITY AND HYPONATREMIA (5) Hyperglycemia Current Visit: Yes Status: Chronic Assessment & Plan: She is a DMII with home glimiperide. Will resume this and add SSI and accucheck. BS 400s but no sign of DKA or hyperosmolar hyperglycemia. IVF boluses given, and continuing NS at 100ml/hr. will check A1C Code(s): R73.9 - HYPERGLYCEMIA, UNSPECIFIED (6) PVD (peripheral vascular disease) Current Visit: No Status: Chronic Assessment & Plan: Stable, continue home plavix Code(s): I73.9 - PERIPHERAL VASCULAR DISEASE, UNSPECIFIED (7) Nausea & vomiting Current Visit: No Status: Resolved Code(s): R11.2 - NAUSEA WITH VOMITING, UNSPECIFIED
[2023-07-23] MEDS ORDERED: TRANDATE 20 MG/4 ML SYRINGE IV PRN (08:00)
[2023-07-23] MEDS: ENOXAPARIN SODIUM SQ SCH (09:06)
[2023-07-23] MEDS: ZOLOFT 50 MG TABLET PO SCH (09:07)
[2023-07-23] MEDS: Tamiflu 75MG Capsule PO SCH ×2 (09:07→21:27)
[2023-07-23] MEDS: PLAVIX Tablet PO SCH (09:08)
[2023-07-23] MEDS ORDERED: NON-FORMULARY ITEM (Sertraline Hcl [Zoloft] 100 MG Tablet) PO SCH (10:00)
[2023-07-23] MEDS ORDERED: AMARYL 4 MG PO SCH (10:00)
[2023-07-23] MEDS: TYLENOL 325 MG PO PRN ×2 (10:44→18:39)
[2023-07-23] MEDS: HUMALOG SQ SCH ×2 (11:56→17:02)
[2023-07-23] MEDS ORDERED: Lantus Insulin SQ SCH (22:00)
[2023-07-24 05:10] LABS: Hematocrit 40.4 % (35-47); Hemoglobin 13.1 g/dL (12.0-16.0); Mean Cell Volume 87.4 fL (78-100); Mean Corpuscular Hemoglobin 28.4 pg (26-32); Mean Corpuscular Hgb Concent. 32.4 g/dL (32-36); Mean Platelet Volume 10.9 fL (7.5-11.0); Platelet Count 305 x10^3/uL (150-450); Red Blood Count 4.62 x10^6/uL (4.1-5.4); Red Cell Distribution Width 13.3 % (11.5-14.0)
--- NOTE | 2023-07-24 05:18 | PCM.DS ---
Discharge Summary Date of Admission: 07/23/23 03:56 Date of Discharge: 07/24/23 Admitting Physician: NORMAN FERNANDEZ DO Primary Care Provider: IDALMIS GRIFFIN Allergies Allergies amoxicillin Allergy (Severe, Verified 07/23/23 00:13) breathing throat erythromycin base Allergy (Severe, Verified 07/23/23 00:13) breathing/ throat Penicillins Allergy (Severe, Verified 07/23/23 00:13) breathing throat Hospital Summary - Hospital Course Hospital Course: HPI: is a 38 year old female with hx of PAD on plavix, DMII and depression here with c/o intractable nause, vomiting and diarrhea sincec July 21. She states she had vomited 15x since. Diarrhea is non-bloody. Abd pain is generalized and cramping in nature. Denies fever, chills, rigor. Work-up in ER found influenza A to be positive. And since she remains nauseated and vomiting, she is being admitted for this and supportive care. ER gave IVF boluses. Patient also noted with hyperglycemia with blood glucose levels in the 400's during hospitalization with A1c at 10.24. No signs of DKA or hyperosmolar hyperglycemia. Patient admits to poor glycemic control as outpatient. She has been started on a regimen of 8 units of lispro with meals and 10 units of glargine. A glucometer has been provided with strips and lancets. Patient advised to follow with pcp/endocrinology and diabetic education has been provided. Nausea/vomiting/diarrhea have resolved. Blood glucose levels have stabilized. Patient is ready for discharge, all questions and concerns have been addressed. Discharge Note New Diagnosis:Influenza A/ hyperglycemia New Medications:Lispro/levemier Follow Up: Endocrinology/PCP Latest Assessment & Plan (1) Influenza A Current Visit: Yes Status: Acute Assessment & Plan: Flu A positive. Tamiflu and supportive measures for her various symptoms. Advis ed vaccination once she gets better Code(s): J10.1 - FLU DUE TO OTH IDENT INFLUENZA VIRUS W OTH RESP MANIFEST (2) Viral gastroenteritis Current Visit: Yes Status: Acute Assessment & Plan: Due to the Flu. N/V/D - IVF, supportive measures. Should expect improvement with treatment and time Code(s): A08.4 - VIRAL INTESTINAL INFECTION, UNSPECIFIED (3) Uncontrolled hypertension Current Visit: Yes Status: Acute Assessment & Plan: Likely due to stress and being sick. She is not on BP med at home previously. Adding Labetalol 20mg Q6hr prn SBP > 160. May need monitoring at home or PCP for formal diagnosis. Code(s): I10 - ESSENTIAL (PRIMARY) HYPERTENSION (4) Hyponatremia Current Visit: Yes Status: Acute Assessment & Plan: Na 130, likely from GI loss due to N/V/D. NS boluses given, will start NS at 100ml/hr. Monitor. Do not expect emergent neurological issue at this level, no do we have to correct slowly as its is acute and mildly low Code(s): E87.1 - HYPO-OSMOLALITY AND HYPONATREMIA (5) Hyperglycemia Current Visit: Yes Status: Chronic Assessment & Plan: She is a DMII with home glimiperide. Will resume this and add SSI and accucheck. BS 400s but no sign of DKA or hyperosmolar hyperglycemia. IVF boluses given, and continuing NS at 100ml/hr. will check A1C Code(s): R73.9 - HYPERGLYCEMIA, UNSPECIFIED (6) PVD (peripheral vascular disease) Current Visit: No Status: Chronic Assessment & Plan: Stable, continue home plavix Code(s): I73.9 - PERIPHERAL VASCULAR DISEASE, UNSPECIFIED (7) Nausea & vomiting Current Visit: No Status: Resolved Code(s): R11.2 - NAUSEA WITH VOMITING, UNSPECIFIED #Uncontrolled Type 2 diabetes -A1c 10.24 -Endocrinology consult OP -D/c oral diabetes medications, start lispro/levemier with low dose SSI I spent 35 minutes [id number] with the patient on the day of discharge performing discharge exam, discussing hospital stay and discharge instructions with patient and caregivers, preparation of discharge records, prescriptions & referral forms and addressing any questions/concerns the patient had as documented above. - Vitals & Intake/Output Vital Signs: Vital Signs Temperature 98.8 F 07/24/23 04:00 Pulse Rate 101 H 07/24/23 04:00 Respiratory Rate 18 07/24/23 04:00 Blood Pressure 149/97 07/24/23 04:00 O2 Sat by Pulse Oximetry 98 07/24/23 04:00 Intake & Output: Intake & Output 07/21/23 07/22/23 07/23/23 07/24/23 11:59 11:59 11:59 11:59 Intake Total 60 1540 Output Total 1500 Balance 60 40 Weight 85.6 kg - Lab Result Diagrams: 07/24/23 04:20 07/24/23 09:44 Lab Results-Last 24 Hrs: Lab Results-Last 24 Hours 07/23/23 07/23/23 07/23/23 Range/Units 03:34 05:35 08:32 POC Glucometer 356 H (74 to 106) mg/dL Hemoglobin A1c 10.24 H (4.5-6.0) % Lactic Acid 3.7 H (0.4-2.0) 07/23/23 07/23/23 07/23/23 Range/Units 11:40 16:44 21:19 POC Glucometer 334 H 127 H 111 H (74 to 106) mg/dL Hemoglobin A1c (4.5-6.0) % Lactic Acid (0.4-2.0) Micro Results-Entire Visit: Accuchecks Date 07/23/23 Date 07/23/23 Date 07/23/23 Date 07/23/23 Time 20:45 Time 16:54 Time 12:28 Time 08:42 - Radiology Exams Ordered Rad Exams-Entire Visit: Radiology Procedures Category Date Time Status ABDOMEN AND PELVIS W/0 CONTRAS [CT] Stat Exams 07/23/23 00:25 Completed - Procedures and Test Procedures and Tests throughout Hospitalization: Therapy Orders & Screens 07/23/23 03:56 Respiratory Therapy Consult ONCE Comment: Reason For Exam: 07/23/23 05:29 Smoking Cessation Education ONCE Comment: Diagnosis: FLU A, VIRAL GASTROENTERITIS, HYPERGLYCEMIA, UNCONTROLLED HTN Smoking Status: Current every day smoker How long have you smoked: 17yo Have you smoked in the past 12 months: Yes Approximately how many cigarettes per day: 1/2 PACK Do you dip or chew tobacco: No If,Former Smoker,when did you quit: 2 weeks Discharge Exam General Appearance: no apparent distress Neurologic Exam: alert, oriented x 3, cooperative Eye Exam: PERRL Ears, Nose, Throat Exam: normal ENT inspection Neck Exam: normal inspection Respiratory Exam: normal breath sounds, lungs clear Cardiovascular Exam: regular rate/rhythm, normal heart sounds Gastrointestinal/Abdomen Exam: soft, normal bowel sounds Pelvic Exam: deferred Rectal Exam: deferred Back Exam: normal inspection Extremity Exam: normal inspection Skin Exam: normal color Final Diagnosis/Problem List - Final Discharge Diagnosis/Problem (1) Influenza A Current Visit: Yes Status: Acute Code(s): J10.1 - FLU DUE TO OTH IDENT INFLUENZA VIRUS W OTH RESP MANIFEST (2) Diabetes mellitus type 2, uncontrolled Current Visit: Yes Status: Chronic Code(s): [id number] - (3) Hypokalemia Current Visit: Yes Status: Resolved Code(s): E87.6 - HYPOKALEMIA (4) Hyponatremia Current Visit: Yes Status: Resolved Code(s): E87.1 - HYPO-OSMOLALITY AND HYPONATREMIA (5) Lactic acid acidosis Current Visit: No Status: Resolved Code(s): E87.2 - ACIDOSIS * DO NOT USE * (6) Nausea & vomiting Current Visit: No Status: Resolved Code(s): R11.2 - NAUSEA WITH VOMITING, UNSPECIFIED - Discharge Disposition: Home, Self-Care Condition: Stable Prescriptions: No Action Clopidogrel Bisulfate [PLAVIX Tablet] 75 mg PO DAILY Sertraline HCl [Zoloft] 100 mg PO DAILY Glimepiride 4 mg [Amaryl 4 mg] 4 mg PO BID #60 tablet Instructions: Insulin Injection, Flu, Adult (DC), High Blood Pressure (DC), Blood Glucose Monitoring Additional Instructions: GLUCOMETER AND LANCETS AND TEST STRIPS CALLED IN TO [facility] AND WILL BE READY TO [employer] SUPERVISOR AT DISCHARGE. Follow up with: IDALMIS GRIFFIN [Primary Care Provider] - 07/30/23 10:15 am MARICRUZ RYAN [NON-STAFF PHY W/O PRIVILEGES] - Forms: Discharge Instructions
[2023-07-24 05:24] LABS: ALBUMIN 3.9 g/dL (3.5-5.0); ANION GAP 10.7 MEQ/L (5-15); BILIRUBIN,TOTAL 0.3 mg/dL (0.2-1.3); Calcium 8.7 mg/dL (8.4-10.2); Creatinine 1 0.45 mg/dL (0.52-1.04); EST GLOMERULAR FILTRATION RATE 125.4 ML/MIN; Total Protein 7.4 g/dL (6.3-8.2)
[2023-07-24 06:41] LABS: ANION GAP 10.7 MEQ/L (5-15); Calcium 8.8 mg/dL (8.4-10.2); Creatinine 1 0.43 mg/dL (0.52-1.04); EST GLOMERULAR FILTRATION RATE 126.8 ML/MIN; Potassium 3.3 mmol/L (3.5-5.1)
[2023-07-24] MEDS ORDERED: Klor Con PO ONE (07:30)
[2023-07-24] MEDS: HUMALOG SQ SCH ×2 (07:38→11:44)
[2023-07-24 08:24] VITALS: RESP 16
[2023-07-24] MEDS: ENOXAPARIN SODIUM SQ SCH (09:14)
[2023-07-24] MEDS: PLAVIX Tablet PO SCH (09:14)
[2023-07-24] MEDS: Tamiflu 75MG Capsule PO SCH (09:14)
[2023-07-24] MEDS: ZOLOFT 50 MG TABLET PO SCH (09:14)
--- NOTE | 2023-07-24 10:42 | PCM.DCORD ---
- Discharge Disposition: Home, Self-Care Condition: Stable Prescriptions: New Insulin Detemir [Levemir Flexpen] 10 unit SQ HS 30 Days #300 unit MDD 10 Insulin Aspart [NovoLOG Insulin] 6 unit SQ TIDWMEALS #540 unit MDD 30 Continue Clopidogrel Bisulfate [PLAVIX Tablet] 75 mg PO DAILY Sertraline HCl [Zoloft] 100 mg PO DAILY Discontinued Glimepiride 4 mg [Amaryl 4 mg] 4 mg PO BID #60 tablet Instructions: Insulin Injection, Flu, Adult (DC), High Blood Pressure (DC), Blood Glucose Monitoring Additional Instructions: GLUCOMETER AND LANCETS AND TEST STRIPS CALLED IN TO [facility] AND WILL BE READY TO [employer] FOOD MANAGER AT DISCHARGE. Follow up with: IDALMIS GRIFFIN [Primary Care Provider] - 07/30/23 10:15 am MARICRUZ RYAN [NON-STAFF PHY W/O PRIVILEGES] - Forms: Discharge Instructions
[2023-07-24 12:31] VITALS: BP 164/79; PULSE 96; TEMP 98.4; O2SAT 96
== END 2023-07-24 12:00 | disposition home or self-care (01) ==
LOC: ED 00:05 → MED SURG 03:56
PROVIDERS: ADMIT Internal Medicine; ATTEND Internal Medicine
DX: J10.1 Influenza due to other identified influenza virus with other respiratory manifestations (principal); A08.4 Viral intestinal infection, unspecified; I10 Essential (primary) hypertension; E87.1 Hypo-osmolality and hyponatremia; E87.6 Hypokalemia; E11.65 Type 2 diabetes mellitus with hyperglycemia; I73.9 Peripheral vascular disease, unspecified; R11.2 Nausea with vomiting, unspecified; F32.A Depression, unspecified; F17.200 Nicotine dependence, unspecified, uncomplicated; Z79.01 Long term (current) use of anticoagulants; Z79.899 Other long term (current) drug therapy; Z20.828 Contact with and (suspected) exposure to other viral communicable diseases
CPT/HCPCS: 0241U; 36000; 36415; 74176; 80048; 80053; 81001; 81025; 82947; 83036; 83605; 83690; 83735; 84132; 85025; 85027; 87086; 96360; 96372; 96374; 96375; 96376; 99285; Q3014; 93268; J0360; J1650; J1815; J1817; J2270; J2405; A9270-GY; G0378

== ENCOUNTER 2023-07-29 03:24 | Emergency (ER) | payer OTHER ==
[2023-07-29 03:42] VITALS: TEMP 97.6
[2023-07-29] MEDS ORDERED: Compazine 10 MG/2 ML IV ONE ×2 (04:03→04:55)
[2023-07-29] MEDS ORDERED: MORPHINE SULFATE 4 MG INJ IV ONE (04:03)
[2023-07-29] MEDS ORDERED: PROTONIX 40 MG IV IV ONE ×2 (04:03→04:12)
[2023-07-29] MEDS ORDERED: Sodium Chloride 0.9% 1000 ML 1,000 ML IV STA (04:03)
--- NOTE | 2023-07-29 04:05 | ERPHSYRPT ---
- History of Present Illness Time Seen by Provider: 07/29/23 03:58 Historian: patient Exam Limitations: no limitations Patient Subjective Stated Complaint: pt states that she woke up vomiting. pt states she was diagnosed with the flu 2 days ago Triage Nursing Assessment: pt came into the er via ambulance; pt transferred to cot per self; c/o vomiting; c/o N/V/D; active bowel sounds in all quads; skin PDW; no respiratory distress present; hypertensive Physician History: 38-year-old female with history of peripheral vascular disease, diabetes mellitus, anxiety who was diagnosed with influenza with gastroenteritis, was admitted presented to the ER again with multiple episodes of nonprojectile, nonbilious vomiting without hematemesis. Also having multiple episodes of loose watery stool without hematochezia. Patient reports upper abdominal discomfort and epigastric burning sensation. Because of repeated vomiting having some chest soreness/discomfort. No fever or chills reported. Feeling dehydrated and weak all over. Allergies/Adverse Reactions: amoxicillin Allergy (Severe, Verified 07/29/23 03:28) breathing throat erythromycin base Allergy (Severe, Verified 07/29/23 03:28) breathing/ throat Penicillins Allergy (Severe, Verified 07/29/23 03:28) breathing throat Home Medications: Clopidogrel Bisulfate [PLAVIX Tablet] 75 mg PO DAILY 04/05/22 [History] Sertraline HCl [Zoloft] 100 mg PO DAILY 04/05/22 [History] Hx Tetanus, Diphtheria Vaccination/Date Given: No Hx Influenza Vaccination/Date Given: No Hx Pneumococcal Vaccination/Date Given: No Immunizations Up to Date: No Travel Risk - International Travel Have you traveled outside of the country in past 3 weeks: No - Coronavirus Screening Are you exhibiting any of the following symptoms?: Yes Symptoms: Cough: New Onset, Shortness of Breath, Vomiting/Diarrhea Close contact with a COVID-19 positive Pt in past 14-21 Days: No - Vaccine Status Have you recieved a Covid-19 vaccination: No - Review of Systems Constitutional: Fatigue, Weakness Eyes: No Symptoms Ears, Nose, & Throat: No Symptoms Respiratory: No Symptoms Cardiac: Chest Pain Abdominal/Gastrointestinal: Abdominal Pain, Nausea, Vomiting, Diarrhea Genitourinary Symptoms: No Symptoms Musculoskeletal: Myalgias Skin: No Symptoms Neurological: No Symptoms Psychological: Anxiety Endocrine: No Symptoms Hematologic/Lymphatic: No Symptoms - Past Medical History Pertinent Past Medical History: Yes Neurological History: No Pertinent History ENT History: No Pertinent History Cardiac History: Other Respiratory History: No Pertinent History Endocrine Medical History: Diabetes Type II Musculoskeletal History: No Pertinent History GI Medical History: Irritable Bowel History: No Pertinent History Psycho-Social History: Anxiety, Depression Female Reproductive Disorders: No Pertinent History Other Medical History: PAD - Past Surgical History Past Surgical History: Yes Neuro Surgical History: No Pertinent History Cardiac: No Pertinent History Respiratory: No Pertinent History Gastrointestinal: Cholecystectomy Genitourinary: No Pertinent History Musculoskeletal: No Pertinent History Female Surgical History: No Pertinent History Other Surgical History: stents in legs. - Social History Smoking Status: Current every day smoker How long have you smoked: 17yo Exposure to second hand smoke: No Drug Use: marijuana Patient Lives Alone: No Significant Family History: no pertinent family hx - Female History Hx Now: No - Nursing Vital Signs Nursing Vital Signs: Initial Vital Signs Temperature 97.6 F 07/29/23 03:25 Pulse Rate 96 H 07/29/23 03:25 Respiratory Rate 22 07/29/23 03:25 Blood Pressure 221/123 07/29/23 03:25 O2 Sat by Pulse Oximetry 99 07/29/23 03:25 Pain Scale Pain Intensity 4 - Physical Exam General Appearance: no apparent distress, alert Eye Exam: PERRL/EOMI Ears, Nose, Throat Exam: normal ENT inspection Neck Exam: normal inspection, non-tender, supple, full range of motion Respiratory Exam: normal breath sounds, lungs clear Cardiovascular Exam: regular rate/rhythm, normal heart sounds Gastrointestinal/Abdomen Exam: soft, normal bowel sounds, tenderness (Mild to moderate upper abdominal tenderness with no guarding or rebound) Back Exam: normal inspection, normal range of motion Extremity Exam: normal inspection, normal range of motion Neurologic Exam: alert, oriented x 3, cooperative, clean room assembler II-XII nml as tested Skin Exam: normal color SpO2 Interpretation: normal SpO2: 100 O2 Delivery: Room Air - Course EKG Interpreted by Me: RATE ([id number]), Sinus Rhythm, NORMAL AXIS, prolonged QT interval, Non-specific ST Changes Ordered Tests: Active Orders 24 hr Category Date Time Status EKG-ER Only STAT Care 07/29/23 04:03 Active IV Insertion STAT Care 07/29/23 04:03 Active NPO (ED) STAT Care 07/29/23 04:03 Active ABDOMEN AND PELVIS W/0 CONTRAS [CT] Stat Exams 07/29/23 04:03 Completed CBC W DIFF Stat Lab 07/29/23 04:28 Completed CMP Stat Lab 07/29/23 04:28 Completed LIPASE Stat Lab 07/29/23 04:28 Completed TROPONIN Q4H Lab 07/29/23 04:28 Completed TROPONIN Q4H Lab 07/29/23 08:15 Ordered TROPONIN Q4H Lab 07/29/23 12:15 Ordered UA W/RFX UR CULTURE Stat Lab 07/29/23 04:28 Completed Medication Summary Discontinued Medications Generic Name Dose Route Start Last Admin Trade Name Freq PRN Reason Stop Dose Admin Sodium Chloride 1,000 mls @ 999 mls/hr 07/29/23 04:03 07/29/23 05:15 Sodium Chloride 0.9% 1000 Ml IV 07/29/23 05:03 Infused .Q1H1M STA Infusion Sodium Chloride Confirm 07/29/23 04:12 Sodium Chloride 0.9% 1000 Ml Administered 07/29/23 04:13 Dose 1,000 mls @ ud .ROUTE .STK-MED ONE Morphine Sulfate 4 mg 07/29/23 04:03 07/29/23 04:13 Morphine Sulfate 4 Mg/Ml Injection IV 07/29/23 04:04 4 mg STAT ONE Administration Morphine Sulfate Confirm 07/29/23 04:12 Morphine Sulfate 4 Mg/Ml Injection Administered 07/29/23 04:13 Dose 4 mg .ROUTE .STK-MED ONE Pantoprazole Sodium 40 mg 07/29/23 04:03 07/29/23 04:13 Pantoprazole 40 Mg Vial IV 07/29/23 04:04 40 mg STAT ONE Administration Pantoprazole Sodium Confirm 07/29/23 04:12 Pantoprazole 40 Mg Vial Administered 07/29/23 04:13 Dose 40 mg IV .STK-MED ONE Prochlorperazine Edisylate 5 mg 07/29/23 04:03 07/29/23 04:13 Prochlorperazine Edisylate 10 Mg/2 Ml Vial IV 07/29/23 04:04 5 mg STAT ONE Administration Prochlorperazine Edisylate Confirm 07/29/23 04:12 Prochlorperazine Edisylate 10 Mg/2 Ml Vial Administered 07/29/23 04:13 Dose 10 mg .ROUTE .[facility] ONE Prochlorperazine Edisylate 5 mg 07/29/23 04:55 07/29/23 04:58 Prochlorperazine Edisylate 10 Mg/2 Ml Vial IV 07/29/23 04:56 5 mg STAT ONE Administration Prochlorperazine Edisylate Confirm 07/29/23 04:57 Prochlorperazine Edisylate 10 Mg/2 Ml Vial Administered 07/29/23 04:58 Dose 10 mg .ROUTE .[facility] Lab/Rad Data: Laboratory Result Diagrams 07/29/23 04:28 07/29/23 04:28 Laboratory Results 07/29/23 07/29/23 07/29/23 Range/Units 04:28 04:28 04:28 WBC 10.7 H (4.0-10.5) x10^3/uL RBC 4.55 (4.1-5.4) x10^6/uL Hgb 13.1 (12.0-16.0) g/dL Hct 39.7 (35-47) % MCV 87.3 (78-100) fL MCH 28.8 (26-32) pg MCHC 33.0 (32-36) g/dL RDW 12.9 (11.5-14.0) % Plt Count 241 (150-450) x10^3/uL MPV 10.6 (7.5-11.0) fL Gran % 81.1 H (36.0-66.0) % Immature Gran % (Auto) 0.4 (0.00-0.4) % Nucleat RBC Rel Count 0.0 (0.00-0.1) % Eos # (Auto) 0.04 (0-0.5) x10^3/uL Immature Gran # (Auto) 0.04 H (0.00-0.03) x10^3u/L Absolute Lymphs (auto) 1.23 (1.0-4.6) x10^3/uL Absolute Monos (auto) 0.68 (0.0-1.3) x10^3/uL Absolute Nucleated RBC 0.00 (0.00-0.01) x10^3u/L Lymphocytes % 11.5 L (24.0-44.0) % Monocytes % 6.3 (0.0-12.0) % Eosinophils % 0.4 (0.00-5.0) % Basophils % 0.3 (0.0-0.4) % Absolute Granulocytes 8.69 H (1.4-6.9) x10^3/uL Basophils # 0.03 (0-0.4) x10^3/uL Sodium 134 L (137-145) mmol/L Potassium 3.4 L (3.5-5.1) mmol/L Chloride 97 L (98-107) mmol/L Carbon Dioxide 27 (22-30) mmol/L Anion Gap 14.0 (5-15) MEQ/L BUN 7 (7-17) mg/dL Creatinine 0.43 L (0.52-1.04) mg/dL Estimated GFR 126.8 ML/MIN Glucose 309 H (74-106) mg/dL Calcium 9.5 (8.4-10.2) mg/dL Total Bilirubin 0.40 (0.2-1.3) mg/dL AST 35 (14-36) U/L ALT 34 (0-35) U/L Alkaline Phosphatase 111 (38-126) U/L Troponin I < 0.012 (0.000-0.034) ng/mL Serum Total Protein 8.2 (6.3-8.2) g/dL Albumin 4.3 (3.5-5.0) g/dL Lipase 127 (23-300) U/L Urine Color (Yellow) Urine Appearance (Clear) Urine pH (4.6-8.0) Ur Specific Mcandrews (1.005-1.030) Urine Protein (Negative) Urine Glucose (UA) (Negative) mg/dL Urine Ketones (Negative) Urine Blood (Negative) Urine Nitrite (Negative) Urine Bilirubin (Negative) Urine Urobilinogen (0.2) mg/dL Ur Leukocyte Esterase (Negative) U Hyaline Cast (Auto) (0-2) /LPF Urine Microscopic RBC (0-5) /HPF Urine Microscopic WBC (0-5) /HPF Ur Epithelial Cells (None Seen) /HPF Urine Bacteria (None Seen) /HPF Urine Culture Reflexed (NO) 07/29/23 Range/Units 04:28 WBC (4.0-10.5) x10^3/uL RBC (4.1-5.4) x10^6/uL Hgb (12.0-16.0) g/dL Hct (35-47) % MCV (78-100) fL MCH (26-32) pg MCHC (32-36) g/dL RDW (11.5-14.0) % Plt Count (150-450) x10^3/uL MPV (7.5-11.0) fL Gran % (36.0-66.0) % Immature Gran % (Auto) (0.00-0.4) % Nucleat RBC Rel Count (0.00-0.1) % Eos # (Auto) (0-0.5) x10^3/uL Immature Gran # (Auto) (0.00-0.03) x10^3u/L Absolute Lymphs (auto) (1.0-4.6) x10^3/uL Absolute Monos (auto) (0.0-1.3) x10^3/uL Absolute Nucleated RBC (0.00-0.01) x10^3u/L Lymphocytes % (24.0-44.0) % Monocytes % (0.0-12.0) % Eosinophils % (0.00-5.0) % Basophils % (0.0-0.4) % Absolute Granulocytes (1.4-6.9) x10^3/uL Basophils # (0-0.4) x10^3/uL Sodium (137-145) mmol/L Potassium (3.5-5.1) mmol/L Chloride (98-107) mmol/L Carbon Dioxide (22-30) mmol/L Anion Gap (5-15) MEQ/L BUN (7-17) mg/dL Creatinine (0.52-1.04) mg/dL Estimated GFR ML/MIN Glucose (74-106) mg/dL Calcium (8.4-10.2) mg/dL Total Bilirubin (0.2-1.3) mg/dL AST (14-36) U/L ALT (0-35) U/L Alkaline Phosphatase (38-126) U/L Troponin I (0.000-0.034) ng/mL Serum Total Protein (6.3-8.2) g/dL Albumin (3.5-5.0) g/dL Lipase (23-300) U/L Urine Color Yellow (Yellow) Urine Appearance Clear (Clear) Urine pH 7.5 (4.6-8.0) Ur Specific Mcandrews 1.015 (1.005-1.030) Urine Protein 100 A (Negative) Urine Glucose (UA) >=1000 A (Negative) mg/dL Urine Ketones 15 A (Negative) Urine Blood Negative (Negative) Urine Nitrite Negative (Negative) Urine Bilirubin Negative (Negative) Urine Urobilinogen 0.2 (0.2) mg/dL Ur Leukocyte Esterase Negative (Negative) U Hyaline Cast (Auto) NONE SEEN (0-2) /LPF Urine Microscopic RBC 0-2 (0-5) /HPF Urine Microscopic WBC 0-2 (0-5) /HPF Ur Epithelial Cells None Seen (None Seen) /HPF Urine Bacteria None Seen (None Seen) /HPF Urine Culture Reflexed NO (NO) - Progress Progress: improved, re-examined Progress Note: 07/29/23 06:40 38-year-old is evaluated for gastroenteritis symptoms. Patient is given fluids and symptomatic/supportive care with Compazine, on reevaluation she is improved. Abdominal exam repeated evaluation is soft nontender with good bowel sounds. Workup showed white count of 10, fairly unremarkable chemistries. Normal lipase. No UTI. Patient has a glucose of 300 but patient always have elevated glucose and she is recently started on insulin as her A1c was around 10. She is counseled on strict glycemic control. Of her symptoms are secondary to irritable bowel syndrome and also has some element of viral gastroenteritis. I have obtained CT abdomen pelvis without contrast as well which is negative for obstruction perforation, colitis or any other acute intra-abdominal pelvic findings. Will give her Zofran to go home. Recommended outpatient follow-up. Discussed signs symptoms of worsening needing return to ER which she seems understanding. Stable for discharge. Counseled pt/family regarding: lab results, diagnosis, need for follow-up, rad results Medical Desision Making - Independent Historian Additional History obtained from: Food Concession Manager/EMT - Diagnostic Testing Diagnostic test were ordered, analyzed, and reviewed by me: Yes Radiological Interpretation: Reviewed by me, Teleradiologist Report - Risk of complications The pt has a mod risk of morbidity or mortality based on: Need for prescription drug management - Departure Departure Disposition: Home Clinical Impression: Viral gastroenteritis, Hyperglycemia Condition: Stable Critical Care Time: No Referrals: IDALMIS GRIFFIN [Primary Care Provider] - Follow up with PCP 1 day Instructions: Viral Gastroenteritis, Child (DC) Additional Instructions: Take Zofran as needed. Drink plenty of fluids to keep yourself well-hydrated. Monitor your blood sugar regularly and take them as recommended. Follow-up with primary care for reevaluation in 1 to 2 days. Return to ER for any worsening. Prescriptions: Ondansetron ODT 4 MG [Zofran Odt 4 mg] 1 ea PO QIDPRN PRN #7 tablet PRN Reason: n/v
[2023-07-29] MEDS ORDERED: MORPHINE SULFATE 4 MG INJ ONE (04:12)
[2023-07-29] MEDS ORDERED: Sodium Chloride 0.9% 1000 ML 1,000 ML ONE (04:12)
[2023-07-29] MEDS ORDERED: Compazine 10 MG/2 ML ONE ×2 (04:12→04:57)
[2023-07-29 04:44] LABS: Absolute Neutrophil Ct (ANC) 8.69 x10^3/uL (1.4-6.9); BASOPHIL % 0.3 % (0.0-0.4); Basophil (Absolute #) 0.03 x10^3/uL (0-0.4); Eosinophil % 0.4 % (0.00-5.0); Eosinophil (Absolute #) 0.04 x10^3/uL (0-0.5); Hematocrit 39.7 % (35-47); Hemoglobin 13.1 g/dL (12.0-16.0); IMMATURE GRAN # 0.04 x10^3u/L (0.00-0.03); IMMATURE GRAN % 0.4 % (0.00-0.4); Lymphocyte (Absolute #) 1.23 x10^3/uL (1.0-4.6); Lymphocytes % 11.5 % (24.0-44.0); Mean Cell Volume 87.3 fL (78-100); Mean Corpuscular Hemoglobin 28.8 pg (26-32); Mean Platelet Volume 10.6 fL (7.5-11.0); Monocyte (Absolute #) 0.68 x10^3/uL (0.0-1.3); Monocytes % 6.3 % (0.0-12.0); Neutrophil % 81.1 % (36.0-66.0); Platelet Count 241 x10^3/uL (150-450); Red Blood Count 4.55 x10^6/uL (4.1-5.4); Red Cell Distribution Width 12.9 % (11.5-14.0); White Blood Count 10.7 x10^3/uL (4.0-10.5)
[2023-07-29 04:49] LABS: Appearance Clear (Clear); Bacteria None Seen /HPF (None Seen); Bilirubin Negative (Negative); Blood Negative (Negative); Epithelial Cells None Seen /HPF (None Seen); Glucose, Urine >=1000 mg/dL (Negative); Hyaline Casts NONE SEEN /LPF (0-2); Ketones 15 (Negative); Leukocyte Esterase Negative (Negative); Nitrite Negative (Negative); Ph 7.5 (4.6-8.0); Protein,Urine Dip 100 (Negative); RBC 0-2 /HPF (0-5); Specific Gravity 1.015 (1.005-1.030); Urobilinogen 0.2 mg/dL (0.2); WBC 0-2 /HPF (0-5)
[2023-07-29 04:59] LABS: ALBUMIN 4.3 g/dL (3.5-5.0); BILIRUBIN,TOTAL 0.4 mg/dL (0.2-1.3); Calcium 9.5 mg/dL (8.4-10.2); Creatinine 1 0.43 mg/dL (0.52-1.04); EST GLOMERULAR FILTRATION RATE 126.8 ML/MIN; Potassium 3.4 mmol/L (3.5-5.1); Total Protein 8.2 g/dL (6.3-8.2)
[2023-07-29 05:23] LABS: ADD URINE CULTURE? NO (NO)
--- NOTE | 2023-07-29 05:30 | XRAY ---
CLINICAL HISTORY:vomiting COMPARISON:To the previous study dated: 07/23/2023 TECHNIQUE:CT scan of the abdomen and pelvis was performed with axial images as well as sagittal and coronal reconstruction images without intravenous contrast. Images were sent to PACs for interpretation. FINDINGS: Scanned lung bases are unremarkable. Liver is mildly enlarged, measuring 18 cm reflecting diffuse hypodensity suggestive of fatty infiltration. No focal lesions. No dilated intrahepatic biliary radicles. The gall bladder is non-visualized. Unremarkable appearing pancreas. No pancreatic mass or ductal dilatation is seen. Unremarkable appearing spleen.The adrenal glands are normal. The kidneys appear unremarkable with no cysts, calculi, masses, or hydronephrosis. Normal appearance of the urinary bladder. The ureters are normal with no stones. Right ovarian small cyst measuring 1.8 X 1.7 cm, likely follicular, would recommend ultrasound for further evaluation if clinically warranted. The small bowel and large bowel are of average diameter. No evidence of appendicitis. Unremarkable abdominal aorta without specific evidence of aneurysm or dissection. IVC is normal. No ascites. No suspiciously enlarged lymphadenopathy. Vertebral spondylotic changes. Retrolisthesis of L5 over S1 vertebra. Narrowing of L5-S1 disc space. IMPRESSION: No acute intra-abdominal abnormality. No fracture was seen. No articular pathological changes. No lytic or sclerotic bone lesions. No abnormal soft tissue shadows. Hepatic steatosis. Vertebral spondylotic changes. Retrolisthesis of L5 over S1 vertebra. Narrowing of L5-S1 disc space. No significant changes in comparison with the previous study. Electronically Signed by: Sohail Ashraf MD. (07/29/2023 05:26:33 EST)
[2023-07-29 06:32] VITALS: BP 136/96; PULSE 87; RESP 18
[2023-07-29 06:44] VITALS: O2SAT 100
== END 2023-07-29 06:52 | disposition home or self-care (01) ==
LOC: ED 03:24
DX: A08.4 Viral intestinal infection, unspecified (principal); E11.65 Type 2 diabetes mellitus with hyperglycemia; R11.10 Vomiting, unspecified; R19.7 Diarrhea, unspecified; R10.13 Epigastric pain; R53.1 Weakness; Z79.02 Long term (current) use of antithrombotics/antiplatelets; Z79.899 Other long term (current) drug therapy; Z28.310 Unvaccinated for COVID-19; Z72.0 Tobacco use
CPT/HCPCS: 36000; 36415; 74176; 80053; 81001; 83690; 84484; 85025; 93005; 96360; 96374; 96375; 99284; J2270

== ENCOUNTER 2023-09-13 00:36 | Emergency (ER) | payer OTHER ==
[2023-09-13] MEDS ORDERED: Compazine 10 MG/2 ML ONE ×2 (01:01→03:11)
[2023-09-13] MEDS: Compazine 10 MG/2 ML IV ONE ×2 (01:05→03:21)
--- NOTE | 2023-09-13 01:08 | ERPHSYRPT ---
- History of Present Illness Historian: patient Exam Limitations: no limitations Hx Tetanus, Diphtheria Vaccination/Date Given: No Hx Influenza Vaccination/Date Given: No Hx Pneumococcal Vaccination/Date Given: No - History of Present Illness Time Seen by Provider: 09/13/23 00:45 Physician History: 38-year-old female with history of diabetes mellitus, anxiety, peripheral vascular disease presented in the ER with sudden onset nausea vomiting with abdominal pain and multiple episodes of loose watery stool. Patient reports nonprojectile, nonbilious vomiting multiple episodes, unable to hold anything down. Feels weak fatigued tired and dehydrated. This started earlier afternoon and denies any history of fever or chills or sick contact. Reports history of recurrent colitis with similar symptoms. (NITESH COOMBS) Allergies/Adverse Reactions: amoxicillin Allergy (Severe, Verified 09/13/23 01:00) breathing throat erythromycin base Allergy (Severe, Verified 09/13/23 01:00) breathing/ throat Penicillins Allergy (Severe, Verified 09/13/23 01:00) breathing throat Home Medications: Clopidogrel Bisulfate [PLAVIX Tablet] 75 mg PO DAILY 04/05/22 [History] Sertraline HCl [Zoloft] 100 mg PO DAILY 04/05/22 [History] Empagliflozin [Jardiance] 10 mg PO DAILY 09/13/23 [History] Insulin Aspart [NovoLOG Insulin] 10 unit SQ TIDWMEALS MDD 30 09/13/23 [History] Travel Risk - Vaccine Status Have you recieved a Covid-19 vaccination: No - Review of Systems Constitutional: Fatigue, Weakness Eyes: No Symptoms Ears, Nose, & Throat: No Symptoms Respiratory: No Symptoms Cardiac: No Symptoms Abdominal/Gastrointestinal: Abdominal Pain, Nausea, Vomiting, Diarrhea Genitourinary Symptoms: No Symptoms Musculoskeletal: No Symptoms Skin: No Symptoms Neurological: No Symptoms Psychological: No Symptoms Hematologic/Lymphatic: No Symptoms - Past Medical History Pertinent Past Medical History: Yes Neurological History: No Pertinent History ENT History: No Pertinent History Cardiac History: Other Respiratory History: No Pertinent History Endocrine Medical History: Diabetes Type II Musculoskeletal History: No Pertinent History GI Medical History: Irritable Bowel History: No Pertinent History Psycho-Social History: Anxiety, Depression Female Reproductive Disorders: No Pertinent History Other Medical History: PAD - Past Surgical History Past Surgical History: Yes Neuro Surgical History: No Pertinent History Cardiac: No Pertinent History Respiratory: No Pertinent History Gastrointestinal: Cholecystectomy Genitourinary: No Pertinent History Musculoskeletal: No Pertinent History Female Surgical History: No Pertinent History Other Surgical History: stents in legs. - Social History Smoking Status: Current every day smoker How long have you smoked: 17yo Exposure to second hand smoke: No Drug Use: marijuana Patient Lives Alone: No Significant Family History: no pertinent family hx - Physical Exam General Appearance: no apparent distress, alert Eye Exam: PERRL/EOMI Ears, Nose, Throat Exam: normal ENT inspection Neck Exam: normal inspection Respiratory Exam: normal breath sounds, lungs clear Cardiovascular Exam: regular rate/rhythm, normal heart sounds Gastrointestinal/Abdomen Exam: soft, normal bowel sounds, tenderness (Mild generalized with no guarding or rebound) Back Exam: normal inspection, normal range of motion Extremity Exam: normal inspection, normal range of motion Neurologic Exam: alert, oriented x 3, cooperative Skin Exam: normal color SpO2 Interpretation: normal SpO2: 96 O2 Delivery: Room Air - Nursing Vital Signs Nursing Vital Signs: Initial Vital Signs Temperature 97.9 F 09/13/23 00:37 Pulse Rate 107 H 09/13/23 00:37 Respiratory Rate 16 09/13/23 00:37 Blood Pressure 229/118 09/13/23 00:37 O2 Sat by Pulse Oximetry 100 09/13/23 00:37 Pain Scale Pain Intensity 7 Ordered Tests: Active Orders 24 hr Category Date Time Status IV Insertion STAT Care 09/13/23 01:04 Active NPO (ED) STAT Care 09/13/23 01:04 Active Telemetry q4h Care 09/13/23 03:02 Active ABDOMEN AND PELVIS W/0 CONTRAS [CT] Stat Exams 09/13/23 02:59 Completed CBC W DIFF Stat Lab 09/13/23 01:30 Completed CMP Stat Lab 09/13/23 01:30 Completed CULTURE,URINE Stat Lab 09/13/23 02:11 Received LIPASE Stat Lab 09/13/23 01:30 Completed MAG [MAGNESIUM] Stat Lab 09/13/23 02:10 Completed POCT GLUCOSE Stat Lab 09/13/23 03:16 Completed POCT GLUCOSE Stat Lab 09/13/23 04:20 Completed POCT GLUCOSE Stat Lab 09/13/23 05:47 Completed UA W/RFX UR CULTURE Stat Lab 09/13/23 02:11 Completed VBG [VENOUS BLOOD GAS] Stat Lab 09/13/23 01:29 Completed Transfer Order Routine Transfer 09/13/23 Ordered Medication Summary Generic Name Dose Route Start Last Admin Trade Name Alphonso PRN Reason Stop Dose Admin Potassium Chloride 20 meq in 100 mls @ 50 mls/hr 09/13/23 03:15 09/13/23 05:52 Potassium Chloride 20 Meq In Water 100ml IV 09/13/23 07:14 50 mls/hr Q2H [place] Administration Sodium Chloride 1,000 mls @ 100 mls/hr 09/13/23 04:45 09/13/23 04:33 Sodium Chloride 0.9% 1000 Ml IV 10/13/23 04:44 100 mls/hr .Q10H [place] Administration Discontinued Medications Generic Name Dose Route Start Last Admin Trade Name Alphonso PRN Reason Stop Dose Admin Sodium Chloride 1,000 mls @ 999 mls/hr 09/13/23 01:04 09/13/23 02:27 Sodium Chloride 0.9% 1000 Ml IV 09/13/23 02:04 Infused .Q1H1M STA Infusion Sodium Chloride Confirm 09/13/23 01:17 Sodium Chloride 0.9% 1000 Ml Administered 09/13/23 01:18 Dose 1,000 mls @ ud .ROUTE .STK-MED ONE Sodium Chloride 1,000 mls @ 999 mls/hr 09/13/23 03:01 09/13/23 04:32 Sodium Chloride 0.9% 1000 Ml IV 09/13/23 04:01 Infused .Q1H1M STA Infusion Sodium Chloride Confirm 09/13/23 03:09 Sodium Chloride 0.9% 1000 Ml Administered 09/13/23 03:10 Dose 1,000 mls @ ud .ROUTE .STK-MED ONE Sodium Chloride Confirm 09/13/23 04:22 Sodium Chloride 0.9% 1000 Ml Administered 09/13/23 04:23 Dose 1,000 mls @ ud .ROUTE .STK-MED ONE INSULIN REGULAR IN 0.9 % NACL 100 unit in 100 mls @ 8.392 mls/hr 09/13/23 04:57 Myxredlin 100 Unit/100 Ml Bag IV 10/13/23 04:56 .[id number] PRN HYPERGLYCEMIA Protocol 0.1 UNIT/KG/HR INSULIN REGULAR IN 0.9 % NACL Confirm 09/13/23 05:33 Myxredlin 100 Unit/100 Ml Bag Administered 09/13/23 05:34 Dose 100 unit in 100 mls @ ud IV .STK-MED ONE Insulin Human Regular 10 unit 09/13/23 03:00 09/13/23 03:22 Insulin Regular, Human 1 Unit IV 09/13/23 03:01 8 unit STAT ONE Administration Insulin Human Regular Confirm 09/13/23 03:08 Insulin Regular, Human 1 Unit Administered 09/13/23 03:09 Dose 10 unit .ROUTE .STK-MED ONE Labetalol HCl 20 mg 09/13/23 03:02 09/13/23 03:22 Labetalol Hcl 20 Mg/4 Ml Disp.Syringe IV 09/13/23 03:03 20 mg STAT ONE Administration Labetalol HCl Confirm 09/13/23 03:09 Labetalol Hcl 20 Mg/4 Ml Disp.Syringe Administered 09/13/23 03:10 Dose 20 mg IV .STK-MED ONE Morphine Sulfate 4 mg 09/13/23 01:04 09/13/23 01:18 Morphine Sulfate 4 Mg/Ml Injection IV 09/13/23 01:05 4 mg STAT ONE Administration Morphine Sulfate Confirm 09/13/23 01:17 Morphine Sulfate 4 Mg/Ml Injection Administered 09/13/23 01:18 Dose 4 mg .ROUTE .STK-MED ONE Potassium Chloride 40 meq 09/13/23 03:02 09/13/23 03:21 Potassium Chloride Tab 10 Meq Tab PO 09/13/23 03:03 40 meq STAT ONE Administration Potassium Chloride Confirm 09/13/23 03:09 Potassium Chloride Tab 10 Meq Tab Administered 09/13/23 03:10 Dose 40 meq .ROUTE .STK-MED ONE Prochlorperazine Edisylate 5 mg 09/13/23 01:02 09/13/23 01:05 Prochlorperazine Edisylate 10 Mg/2 Ml Vial IV 09/13/23 01:03 5 mg STAT ONE Administration Prochlorperazine Edisylate Confirm 09/13/23 01:01 Prochlorperazine Edisylate 10 Mg/2 Ml Vial Administered 09/13/23 01:02 Dose 10 mg .ROUTE .STK-MED ONE Prochlorperazine Edisylate 5 mg 09/13/23 03:11 09/13/23 03:21 Prochlorperazine Edisylate 10 Mg/2 Ml Vial IV 09/13/23 03:12 5 mg STAT ONE Administration Prochlorperazine Edisylate Confirm 09/13/23 03:11 Prochlorperazine Edisylate 10 Mg/2 Ml Vial Administered 09/13/23 03:12 Dose 10 mg .ROUTE .STK-MED ONE Lab/Rad Data: Laboratory Result Diagrams 09/13/23 01:30 09/13/23 01:30 Laboratory Results 09/13/23 09/13/23 09/13/23 Range/Units 05:47 04:20 03:16 WBC (4.0-10.5) x10^3/uL RBC (4.1-5.4) x10^6/uL Hgb (12.0-16.0) g/dL Hct (35-47) % MCV (78-100) fL MCH (26-32) pg MCHC (32-36) g/dL RDW (11.5-14.0) % Plt Count (150-450) x10^3/uL MPV (7.5-11.0) fL Gran % (36.0-66.0) % Immature Gran % (Auto) (0.00-0.4) % Nucleat RBC Rel Count (0.00-0.1) % Eos # (Auto) (0-0.5) x10^3/uL Immature Gran # (Auto) (0.00-0.03) x10^3u/L Absolute Lymphs (auto) (1.0-4.6) x10^3/uL Absolute Monos (auto) (0.0-1.3) x10^3/uL Absolute Nucleated RBC (0.00-0.01) x10^3u/L Lymphocytes % (24.0-44.0) % Monocytes % (0.0-12.0) % Eosinophils % (0.00-5.0) % Basophils % (0.0-0.4) % Absolute Granulocytes (1.4-6.9) x10^3/uL Basophils # (0-0.4) x10^3/uL pO2/FiO2 Ratio % VBG pH (7.32-7.42) VBG pCO2 at Pat Temp (42-55) mm/Hg VBG pO2 at Pat Temp (25-40) mm/Hg VBG HCO3 (22-28) meq/L VBG O2 Sat (Radha) (95-100) VBG Base Excess (-2.0-2.0) VBG Hemoglobin VBG Carboxyhemoglobin (0.0-6.9) % T HGB POC Potassium (3.5-5.1) Sodium (137-145) mmol/L Potassium (3.5-5.1) mmol/L Chloride (98-107) mmol/L Carbon Dioxide (22-30) mmol/L Anion Gap (5-15) MEQ/L BUN (7-17) mg/dL Creatinine (0.52-1.04) mg/dL Estimated GFR ML/MIN Glucose (74-106) mg/dL POC Glucometer 318 H 321 H 371 H (74 to 106) mg/dL Calcium (8.4-10.2) mg/dL Magnesium (1.6-2.3) mg/dL Total Bilirubin (0.2-1.3) mg/dL AST (14-36) U/L ALT (0-35) U/L Alkaline Phosphatase (38-126) U/L Serum Total Protein (6.3-8.2) g/dL Albumin (3.5-5.0) g/dL Lipase (23-300) U/L Urine Color (Yellow) Urine Appearance (Clear) Urine pH (4.6-8.0) Ur Specific Helen (1.005-1.030) Urine Protein (Negative) Urine Glucose (UA) (Negative) mg/dL Urine Ketones (Negative) Urine Blood (Negative) Urine Nitrite (Negative) Urine Bilirubin (Negative) Urine Urobilinogen (0.2) mg/dL Ur Leukocyte Esterase (Negative) U Hyaline Cast (Auto) (0-2) /LPF Urine Microscopic RBC (0-5) /HPF Urine Microscopic WBC (0-5) /HPF Ur Epithelial Cells (None Seen) /HPF Urine Bacteria (None Seen) /HPF Urine Culture Reflexed (NO) Influenza Type A Ag (NEGATIVE) Influenza Type B Ag (NEGATIVE) RSV (PCR) (NEGATIVE) SARS-CoV-2 (PCR) (NEGATIVE) 09/13/23 09/13/23 09/13/23 Range/Units 02:11 02:10 02:10 WBC (4.0-10.5) x10^3/uL RBC (4.1-5.4) x10^6/uL Hgb (12.0-16.0) g/dL Hct (35-47) % MCV (78-100) fL MCH (26-32) pg MCHC (32-36) g/dL RDW (11.5-14.0) % Plt Count (150-450) x10^3/uL MPV (7.5-11.0) fL Gran % (36.0-66.0) % Immature Gran % (Auto) (0.00-0.4) % Nucleat RBC Rel Count (0.00-0.1) % Eos # (Auto) (0-0.5) x10^3/uL Immature Gran # (Auto) (0.00-0.03) x10^3u/L Absolute Lymphs (auto) (1.0-4.6) x10^3/uL Absolute Monos (auto) (0.0-1.3) x10^3/uL Absolute Nucleated RBC (0.00-0.01) x10^3u/L Lymphocytes % (24.0-44.0) % Monocytes % (0.0-12.0) % Eosinophils % (0.00-5.0) % Basophils % (0.0-0.4) % Absolute Granulocytes (1.4-6.9) x10^3/uL Basophils # (0-0.4) x10^3/uL pO2/FiO2 Ratio % VBG pH (7.32-7.42) VBG pCO2 at Pat Temp (42-55) mm/Hg VBG pO2 at Pat Temp (25-40) mm/Hg VBG HCO3 (22-28) meq/L VBG O2 Sat (Radha) (95-100) VBG Base Excess (-2.0-2.0) VBG Hemoglobin VBG Carboxyhemoglobin (0.0-6.9) % T HGB POC Potassium (3.5-5.1) Sodium (137-145) mmol/L Potassium (3.5-5.1) mmol/L Chloride (98-107) mmol/L Carbon Dioxide (22-30) mmol/L Anion Gap (5-15) MEQ/L BUN (7-17) mg/dL Creatinine (0.52-1.04) mg/dL Estimated GFR ML/MIN Glucose (74-106) mg/dL POC Glucometer (74 to 106) mg/dL Calcium (8.4-10.2) mg/dL Magnesium 1.7 (1.6-2.3) mg/dL Total Bilirubin (0.2-1.3) mg/dL AST (14-36) U/L ALT (0-35) U/L Alkaline Phosphatase (38-126) U/L Serum Total Protein (6.3-8.2) g/dL Albumin (3.5-5.0) g/dL Lipase (23-300) U/L Urine Color Yellow (Yellow) Urine Appearance Clear (Clear) Urine pH 7.0 (4.6-8.0) Ur Specific Helen 1.025 (1.005-1.030) Urine Protein 100 A (Negative) Urine Glucose (UA) >=1000 A (Negative) mg/dL Urine Ketones 80 A (Negative) Urine Blood Large A (Negative) Urine Nitrite Negative (Negative) Urine Bilirubin Negative (Negative) Urine Urobilinogen 0.2 (0.2) mg/dL Ur Leukocyte Esterase Negative (Negative) U Hyaline Cast (Auto) NONE SEEN (0-2) /LPF Urine Microscopic RBC 21-50 A (0-5) /HPF Urine Microscopic WBC 0-2 (0-5) /HPF Ur Epithelial Cells None Seen (None Seen) /HPF Urine Bacteria None Seen (None Seen) /HPF Urine Culture Reflexed YES (NO) Influenza Type A Ag NEGATIVE (NEGATIVE) Influenza Type B Ag NEGATIVE (NEGATIVE) RSV (PCR) NEGATIVE (NEGATIVE) SARS-CoV-2 (PCR) NEGATIVE (NEGATIVE) 09/13/23 09/13/23 09/13/23 Range/Units 01:30 01:30 01:29 WBC 18.0 H (4.0-10.5) x10^3/uL RBC 4.64 (4.1-5.4) x10^6/uL Hgb 13.2 (12.0-16.0) g/dL Hct 40.0 (35-47) % MCV 86.2 (78-100) fL MCH 28.4 (26-32) pg MCHC 33.0 (32-36) g/dL RDW 13.0 (11.5-14.0) % Plt Count 351 (150-450) x10^3/uL MPV 11.5 H (7.5-11.0) fL Gran % 91.1 H (36.0-66.0) % Immature Gran % (Auto) 0.6 H (0.00-0.4) % Nucleat RBC Rel Count 0.0 (0.00-0.1) % Eos # (Auto) 0 (0-0.5) x10^3/uL Immature Gran # (Auto) 0.10 H (0.00-0.03) x10^3u/L Absolute Lymphs (auto) 0.70 L (1.0-4.6) x10^3/uL Absolute Monos (auto) 0.74 (0.0-1.3) x10^3/uL Absolute Nucleated RBC 0.00 (0.00-0.01) x10^3u/L Lymphocytes % 3.9 L (24.0-44.0) % Monocytes % 4.1 (0.0-12.0) % Eosinophils % 0.0 (0.00-5.0) % Basophils % 0.3 (0.0-0.4) % Absolute Granulocytes 16.37 H (1.4-6.9) x10^3/uL Basophils # 0.06 (0-0.4) x10^3/uL pO2/FiO2 Ratio 21.0 % VBG pH 7.47 H (7.32-7.42) VBG pCO2 at Pat Temp 33 L (42-55) mm/Hg VBG pO2 at Pat Temp 37 (25-40) mm/Hg VBG HCO3 24.0 (22-28) meq/L VBG O2 Sat (Radha) 66.9 L (95-100) VBG Base Excess 0.9 (-2.0-2.0) VBG Hemoglobin 14.1 VBG Carboxyhemoglobin 2.8 (0.0-6.9) % T HGB POC Potassium 3.4 L (3.5-5.1) Sodium 135 L (137-145) mmol/L Potassium 3.2 L (3.5-5.1) mmol/L Chloride 98 (98-107) mmol/L Carbon Dioxide 20 L (22-30) mmol/L Anion Gap 19.8 H (5-15) MEQ/L BUN 9 (7-17) mg/dL Creatinine 0.45 L (0.52-1.04) mg/dL Estimated GFR 125.4 ML/MIN Glucose 487 H (74-106) mg/dL POC Glucometer (74 to 106) mg/dL Calcium 9.9 (8.4-10.2) mg/dL Magnesium (1.6-2.3) mg/dL Total Bilirubin 0.70 (0.2-1.3) mg/dL AST 26 (14-36) U/L ALT 24 (0-35) U/L Alkaline Phosphatase 114 (38-126) U/L Serum Total Protein 8.5 H (6.3-8.2) g/dL Albumin 5.0 (3.5-5.0) g/dL Lipase 70 (23-300) U/L Urine Color (Yellow) Urine Appearance (Clear) Urine pH (4.6-8.0) Ur Specific Helen (1.005-1.030) Urine Protein (Negative) Urine Glucose (UA) (Negative) mg/dL Urine Ketones (Negative) Urine Blood (Negative) Urine Nitrite (Negative) Urine Bilirubin (Negative) Urine Urobilinogen (0.2) mg/dL Ur Leukocyte Esterase (Negative) U Hyaline Cast (Auto) (0-2) /LPF Urine Microscopic RBC (0-5) /HPF Urine Microscopic WBC (0-5) /HPF Ur Epithelial Cells (None Seen) /HPF Urine Bacteria (None Seen) /HPF Urine Culture Reflexed (NO) Influenza Type A Ag (NEGATIVE) Influenza Type B Ag (NEGATIVE) RSV (PCR) (NEGATIVE) SARS-CoV-2 (PCR) (NEGATIVE) - Progress Progress: improved Discussed with : Katja Will see patient in: hospital (observation) Counseled pt/family regarding: lab results, diagnosis, rad results - Progress Progress Note: 09/13/23 05:33 38-year-old is evaluated for intractable nausea vomiting and diarrhea. Patient is given fluid boluses along with symptomatic treatment. Patient workup showed white count of 18, gap of 20, glucose 487, bicarb of 20 but pH of 7.4 and posit joe ketones in urine. I believe patient ketones in urine are secondary to dehydration and she is pre-DKA. She also has a potassium of 3.2 and is started on replacement. Magnesium of 1.7. She is given IV insulin and blood sugar is improving and currently 322. Obtained CT abdomen pelvis without contrast which is negative for any acute abdominal pelvic findings. Patient also had blood pressure in 200s. Does not have any history of hypertension. She is given a dose of labetalol and it improved to 130s. Discussed with Dr. Mayberry, agreed with continue with insulin scheduled and as needed and not to start on the drip, patient is accepted for admission. I have discussed the results of workup with patient who understand and agrees with plan of admission. 09/13/23 05:38 (NITESH COOMBS) 09/13/23 07:37 38-year-old female in DKA with admit orders per Dr. Coombs decided to leave AMA at the beginning of my shift. Risks explained to patient including further DKA and possible , but patient states she is willing to accept the risks and wants to go home. Patient alert and oriented x 3 upon signing out AMA. She states that she has places to go and things to do today. (SUHA SUNSHINE) Medical Desision Making - Discussion of managment Care discussed with:: hospitalist Reviewed:: Test results Agreed on:: Treatment plan Will see patient: in hospital - Diagnostic Testing Diagnostic test were ordered, analyzed, and reviewed by me: Yes Radiological Interpretation: Reviewed by me, Teleradiologist Report - Risk of complications The pt has a high risk of morbidity or mortality based on: Decision regarding hospitilization or escalation of hosp level of care - Departure Departure Disposition: Observation Critical Care Time: No - Departure Clinical Impression: Hyperglycemia, Abdominal pain, Viral gastroenteritis, Leukocytosis, Hypokalemia, Uncontrolled hypertension Condition: Stable Referrals: IDALMIS GRIFFIN [Primary Care Provider] - Follow up/PCP as directed
[2023-09-13 01:16] VITALS: TEMP 97.9
[2023-09-13] MEDS ORDERED: Sodium Chloride 0.9% 1000 ML 1,000 ML ONE ×3 (01:17→04:22)
[2023-09-13] MEDS ORDERED: MORPHINE SULFATE 4 MG INJ ONE (01:17)
[2023-09-13] MEDS: MORPHINE SULFATE 4 MG INJ IV ONE (01:18)
[2023-09-13] MEDS: Sodium Chloride 0.9% 1000 ML 1,000 ML IV STA ×2 (01:18→03:22)
[2023-09-13 01:34] LABS: VBG BASE EXCESS 0.9 (-2.0-2.0); VBG CARBOXYHEMOGLOBIN 2.8 % T HGB (0.0-6.9); VBG HEMOGLOBIN 14.1; VBG O2 SATURATION 66.9 (95-100); VBG POTASSIUM 3.4 (3.5-5.1); VBG pH 7.47 (7.32-7.42)
[2023-09-13 01:50] LABS: Absolute Neutrophil Ct (ANC) 16.37 x10^3/uL (1.4-6.9); BASOPHIL % 0.3 % (0.0-0.4); Basophil (Absolute #) 0.06 x10^3/uL (0-0.4); Eosinophil (Absolute #) 0 x10^3/uL (0-0.5); Hemoglobin 13.2 g/dL (12.0-16.0); IMMATURE GRAN % 0.6 % (0.00-0.4); Lymphocytes % 3.9 % (24.0-44.0); Mean Cell Volume 86.2 fL (78-100); Mean Corpuscular Hemoglobin 28.4 pg (26-32); Mean Platelet Volume 11.5 fL (7.5-11.0); Monocyte (Absolute #) 0.74 x10^3/uL (0.0-1.3); Monocytes % 4.1 % (0.0-12.0); Neutrophil % 91.1 % (36.0-66.0); Platelet Count 351 x10^3/uL (150-450); Red Blood Count 4.64 x10^6/uL (4.1-5.4)
[2023-09-13 02:04] LABS: ANION GAP 19.8 MEQ/L (5-15); BILIRUBIN,TOTAL 0.7 mg/dL (0.2-1.3); Calcium 9.9 mg/dL (8.4-10.2); Creatinine 1 0.45 mg/dL (0.52-1.04); EST GLOMERULAR FILTRATION RATE 125.4 ML/MIN; Potassium 3.2 mmol/L (3.5-5.1); Total Protein 8.5 g/dL (6.3-8.2)
[2023-09-13 02:36] LABS: Appearance Clear (Clear); Bacteria None Seen /HPF (None Seen); Bilirubin Negative (Negative); Blood Large (Negative); Epithelial Cells None Seen /HPF (None Seen); Glucose, Urine >=1000 mg/dL (Negative); Hyaline Casts NONE SEEN /LPF (0-2); Ketones 80 (Negative); Leukocyte Esterase Negative (Negative); Nitrite Negative (Negative); Protein,Urine Dip 100 (Negative); RBC 21-50 /HPF (0-5); Specific Gravity 1.025 (1.005-1.030); Urobilinogen 0.2 mg/dL (0.2); WBC 0-2 /HPF (0-5)
[2023-09-13 02:52] LABS: ADD URINE CULTURE? YES (NO)
[2023-09-13] MEDS ORDERED: HUMULIN R ONE (03:08)
[2023-09-13] MEDS ORDERED: Klor Con ONE (03:09)
[2023-09-13] MEDS ORDERED: TRANDATE 20 MG/4 ML SYRINGE IV ONE (03:09)
[2023-09-13] MEDS ORDERED: POTASSIUM CHLORIDE 20 mEq IN WATER 100ML 100 ML IV ONE ×2 (03:09→05:33)
[2023-09-13] MEDS: Klor Con PO ONE (03:21)
[2023-09-13] MEDS: POTASSIUM CHLORIDE 20 mEq IN WATER 100ML 20 MEQ/100 ML BAG IV SCH (03:21)
[2023-09-13] MEDS: TRANDATE 20 MG/4 ML SYRINGE IV ONE (03:22)
[2023-09-13] MEDS: HUMULIN R IV ONE (03:22)
[2023-09-13 03:48] LABS: INFLUENZA A NEGATIVE (NEGATIVE); INFLUENZA B NEGATIVE (NEGATIVE); RESPIRATORY SYNCTIAL VIRUS NEGATIVE (NEGATIVE); SARS-CoV-2 Xpert Express NEGATIVE (NEGATIVE)
--- NOTE | 2023-09-13 04:29 | XRAY ---
CLINICAL HISTORY: VOMITING/DIARRHEA TECHNIQUE: CT scan of the abdomen and pelvis was performed in axial plane with sagittal and coronal reconstructed images without intravenous contrast. Images were sent to PACs for interpretation. COMPARISON: CT dated: 07/29/2023. FINDINGS: Scanned lung bases are unremarkable. Liver is mildly enlarged, measuring about 17.5 cm reflecting diffuse hypodensity suggestive of fatty infiltration. No focal lesions. No dilated intrahepatic biliary radicles. The gall bladder is non-visualized. Unremarkable appearing pancreas. No pancreatic mass or ductal dilatation is seen. Unremarkable appearing spleen. The adrenal glands are normal. The kidneys appear unremarkable with no cysts, calculi, masses, or hydronephrosis. Normal appearance of the urinary bladder. The ureters are normal with no stones. Uterus and ovaries are markable. The small bowel and large bowel are of average diameter. No evidence of appendicitis. Unremarkable abdominal aorta without specific evidence of aneurysm or dissection. IVC is normal. No ascites. No suspiciously enlarged lymphadenopathy. Vertebral spondylotic changes. Retrolisthesis of L5 over S1 vertebra. Narrowing of L5-S1 disc space. IMPRESSION: 1. No acute intra-abdominal abnormality. Appendix is unremarkable. 2. Hepatic steatosis. 3. Vertebral spondylotic changes. Retrolisthesis of L5 over S1 vertebra. Narrowing of L5-S1 disc space. 4. No significant changes in comparison with the previous study. Electronically Signed by: Sohail Ashraf MD. (09/13/2023 03:59:35 EST)
[2023-09-13] MEDS: Sodium Chloride 0.9% 1000 ML 1,000 ML IV SCH (04:33)
[2023-09-13] MEDS ORDERED: MYXREDLIN 100 UNIT/100 ML BAG 100 UNIT/100 ML PLAST..BAG IV PRN (04:57)
[2023-09-13] MEDS ORDERED: INSULIN REGULAR IV ONE (05:33)
[2023-09-13 07:10] VITALS: BP 131/89; PULSE 110; RESP 17; O2SAT 96
== END 2023-09-13 07:38 | disposition left against medical advice (07) ==
LOC: ED 00:36
DX: E11.65 Type 2 diabetes mellitus with hyperglycemia (principal); R10.9 Unspecified abdominal pain; A08.4 Viral intestinal infection, unspecified; D72.829 Elevated white blood cell count, unspecified; E87.6 Hypokalemia; I10 Essential (primary) hypertension; R11.2 Nausea with vomiting, unspecified; R19.7 Diarrhea, unspecified; R53.83 Other fatigue; Z79.02 Long term (current) use of antithrombotics/antiplatelets; Z79.84 Long term (current) use of oral hypoglycemic drugs; Z79.4 Long term (current) use of insulin; Z79.899 Other long term (current) drug therapy; Z28.310 Unvaccinated for COVID-19; Z72.0 Tobacco use
CPT/HCPCS: 0241U; 36000; 36415; 74176; 80053; 81001; 82805; 82947; 83690; 83735; 85025; 87086; 96360; 96374; 99285; J1815; J2270; J3480; A9270-GY